=== PATIENT | female | born 1950 ===

== ENCOUNTER 2017-12-20 10:48 | Day surgery (SDC) | payer MEDICARE ==
[2017-12-17 11:33] VITALS: BMI 31.1
[2017-12-20] MEDS ORDERED: Lidocaine Hydrochloride 10 ML INJ ONE (12:03)
[2017-12-20] MEDS ORDERED: HEPARIN-NS 5,000 UNITS/500 ML 5,000 UNIT/500 ML BAG IV ONE (12:03)
[2017-12-20] MEDS ORDERED: ceFAZolin IV 1 gm in Dextrose 1 GM/50 ML BAG IVPB ONE (12:34)
[2017-12-20] MEDS ORDERED: Propofol 10 mg/ml Inj (20 ML) ONE (12:41)
[2017-12-20] MEDS ORDERED: ePHEDrine 50 mg/ml Inj ONE (13:16)
[2017-12-20] MEDS ORDERED: HYDROmorphone 0.5 mg/0.5 ml ISec IVP PRN (13:32)
--- NOTE | 2017-12-20 13:42 | PCM.SURG1 ---
Surgeon's Initial Post Op Note - Surgeon's Notes Surgeon: Gianluca Riojas [employer]ate Shop Attendant: none Type of Anesthesia: General LMA Anesthesia Administered By: ALEJANDRINA Mandujano Pre-Operative Diagnosis: breast cancer Operative Findings: 8F Powerport inserted via L subclavian vein Post-Operative Diagnosis: breast cancer Operation Performed: L subclavian portacath insertion Specimen/Specimens Removed: none Estimated Blood Loss: EBL {In ML}: 10 Blood Products Given: N/A Drains Used: No Drains Post-Op Condition: Good Date of Surgery/Procedure: 12/20/17 Time of Surgery/Procedure: 13:41
--- NOTE | 2017-12-20 14:02 | RAD ---
HISTORY: portacath COMPARISON: 12/17/2017. FINDINGS: The left-sided Port-A-Cath terminates in the right atrium. LUNGS: The lungs are clear. PLEURA: No significant pleural effusion identified, no pneumothorax apparent. CARDIOVASCULAR: There is mild cardiomegaly and prominent central vasculature. OSSEOUS STRUCTURES: No significant abnormalities. VISUALIZED UPPER ABDOMEN: Normal. OTHER FINDINGS: None. IMPRESSION: Left Port-A-Cath terminates in the right atrium. No acute findings.
--- NOTE | 2017-12-20 14:40 | RAD ---
PROCEDURE: Intraoperative Fluoroscopy. HISTORY: BREAST CA FINDINGS: Fluoroscopic assistance was provided for Port-A-Cath placement. Please refer to the operative report from DEJA Dorman. Total fluoroscopic time (continuous mode) utilized during the procedure (seconds) 26.2.
[2017-12-20 15:34] VITALS: BP 117/55; PULSE 63; RESP 20; TEMP 97.8; O2SAT 97
--- NOTE | 2017-12-23 07:57 | OP ---
PROCEDURE DATE: 12/20/2017 SURGEON: Leonel Riojas MD. ANESTHESIA: General LMA. MIXER WHIPPED TOPPING: Delbert Antunze CRNA. PREOPERATIVE DIAGNOSIS: Breast cancer. POSTOPERATIVE DIAGNOSIS: Breast cancer. PROCEDURE: Left subclavian Port-A-Cath insertion. DESCRIPTION OF OPERATION: With the patient in the supine position under adequate general anesthesia, the left upper chest and lower neck were prepped and draped in usual sterile manner. Lidocaine 1% was infiltrated and a subclavian vein puncture was performed. A guidewire was passed. The position was checked with C-arm, and it was noted to pass smoothly into the superior vena cava and right atrium. The skin overlying the upper left breast was infiltrated with 1% lidocaine and a subcutaneous pocket was created. The size was tested with the port, and hemostasis was achieved. The catheter was tunneled from the insertion. The vein dilator and introducer were then passed over the guidewire and positioned in the superior vena cava. The guidewire and dilator were removed, and the catheter was passed via the introducer and positioned in the lower portion of the superior vena cava. The catheter was trimmed at 25 cm at the pocket site, aspirated for blood return, and irrigated with heparinized saline. The catheter was then fixed to the port which had also been soaked with heparinized saline and fixed with the appropriate device. The port was placed in the previously created pocket and sutured on the deep aspect with a 3-0 Prolene suture. The port was again aspirated for blood return and irrigated with heparinized saline, and the pocket was closed with 2 interrupted sutures of 3-0 Vicryl and running subcuticular suture of 4-0 Monocryl and Steri-Strips. The dry sterile dressings were applied and the entire catheter system was again visualized with the C-arm to note that everything was in good position with no kinking. The patient tolerated the procedure well and transferred to recovery room in stable condition. Estimated blood loss for the procedure was 10 mL. Leonel Riojas MD
== END 2017-12-20 15:15 | disposition home or self-care (01) ==
LOC: C.SDS 10:48
PROVIDERS: ATTEND Specialist
DX: C50.011 Malignant neoplasm of nipple and areola, right female breast (principal); C50.919 Malignant neoplasm of unspecified site of unspecified female breast; Z45.2 Encounter for adjustment and management of vascular access device
CPT/HCPCS: 36561; 71045; J0690; J1644; J2001; J2405; J2704; J3010

== ENCOUNTER 2018-01-14 15:47 | Inpatient (IN) | payer MEDICARE ==
[2018-01-14 15:47] VITALS: BMI 31.1
[2018-01-14] MEDS ORDERED: Piperacillin/Tazobact 3.375 gm 100 ML IV STA (17:23)
[2018-01-14] MEDS ORDERED: Vancomycin 1 GM 1 GM/250 ML BAG IV STA (17:23)
--- NOTE | 2018-01-14 17:24 | C.PDOC ---
History Of Present Illness 67 yo female with PMHx of HTN, hyperlipidemia, depression, stage III breast cancer, currently on chemotherapy with Dr. Terrazas, sent to ER by Dr. Terrazas for evaluation of intermittent fever x 1 week. Patient reports she had a port placed by Dr. Riojas (12/20/17) and today when the port was accessed she felt immediate chills. Patient denies cough, rhinorrhea, sore throat, body changes, vomiting, diarrhea, dysuria/hematuria, abdominal pain. Time Seen by Provider: 01/14/18 17:03 Chief Complaint (Nursing): Fever History Per: Patient History/Exam Limitations: no limitations Onset/Duration Of Symptoms: Intermittent Episodes Additional History Per: Patient Past Medical History Reviewed: Historical Data, Nursing Documentation, Vital Signs Vital Signs: Last Vital Signs Temp 97.7 F 01/15/18 15:05 Pulse 72 01/15/18 15:05 Resp 20 01/15/18 15:05 BP 125/69 01/15/18 15:05 Pulse Ox 97 01/15/18 17:59 - Medical History PMH: Depression, Gall Bladder Disease, HTN, Hypercholesterolemia Denies: Chronic Kidney Disease Surgical History: Cholecystectomy, Endoscopy Family History: States: No Known Family Hx - Social History Hx Tobacco Use: No Hx Alcohol Use: Yes Hx Substance Use: No - Immunization History Hx Tetanus Toxoid Vaccination: No Hx Influenza Vaccination: No Hx Pneumococcal Vaccination: No Review Of Systems Constitutional: Positive for: Fever, Chills Cardiovascular: Negative for: Chest Pain Respiratory: Negative for: Shortness of Breath Gastrointestinal: Negative for: Abdominal Pain, Diarrhea Genitourinary: Negative for: Dysuria Physical Exam - Physical Exam Appears: Non-toxic, No Acute Distress Skin: Normal Color, Warm, Dry Head: Atraumatic, Normacephalic Eye(s): bilateral: Normal Inspection Oral Mucosa: Moist Neck: Normal ROM, Supple Chest: Symmetrical, Other (port noted to left upper chest; no surrounding erythema, or purulent discharge noted.) Cardiovascular: Rhythm Regular Respiratory: Normal Breath Sounds Gastrointestinal/Abdominal: Normal Exam, Soft, No Tenderness Back: Normal Inspection Extremity: Normal ROM, No Pedal Edema Neurological/Psych: Oriented x3 ED Course And Treatment - Laboratory Results Result Diagrams: 01/15/18 06:47 01/15/18 06:47 ECG: Interpreted By Me, Viewed By Me (NSR 96 bpm, normal axis, no acute ST/T wave changes) O2 Sat by Pulse Oximetry: 97 (RA) Pulse Ox Interpretation: Normal - Radiology CXR: Interpreted by Me, Viewed By Me CXR Interpretation: Yes: Cardiomegaly. No: Infiltrates Progress Note: Blood work, CXR, UA ordered and reviewed. UA and CXR negative- Patient's symptoms concerning for possible bacteremia (in light of recent Port insertion, and symptoms when Port was accessed). Broad spectrum antibiotics ordered - IV Vancomycin and IV Zosyn. - Physician Consult Information Physician Contacted: Krysten Knutson Outcome Of Conversation: Discussed patient with hospitalist, agrees with admission for fever/chills, leukocytosis, stage III breast CA, bacteremia suspected. Disposition - Disposition Disposition: HOSPITALIZED Disposition Time: 18:33 Condition: STABLE - Clinical Impression Clinical Impression: Bacteremia, Breast cancer, stage 3, Chills, Fever, Leukocytosis - Scribe Statement The provider has reviewed the documentation as recorded by the Filomena Stewart Provider Attestation: All medical record entries made by the Filomena were at my direction and personally dictated by me. I have reviewed the chart and agree that the record accurately reflects my personal performance of the history, physical exam, medical decision making, and the department course for this patient. I have also personally directed, reviewed, and agree with the discharge instructions and disposition. Decision To Admit - Pt Status Changed To: Hospital Disposition Of: Inpatient - Admit Certification Admit to Inpatient:: After my assessment, the patient will require hospitalization for at least two midnights. This is because of the severity of symptoms shown, intensity of services needed, and/or the medical risk in this patient being treated as an outpatient. - InPatient: Physician Admission Certification:: see notes - . Bed Request Type: Regular Admitting Physician: Krysten Knutson Patient Diagnosis: Fever, Chills, Leukocytosis, Bacteremia, Breast cancer, stage 3
[2018-01-14 17:58] LABS: SQUAMOUS EPITHIAL < 1 /hpf (0-5); URINE BILIRUBIN NEGATIVE (NEGATIVE); URINE BLOOD NEGATIVE (NEGATIVE); URINE CLARITY Clear (Clear); URINE COLOR Yellow (YELLOW); URINE GLUCOSE (UA) NORMAL (Normal); URINE LEUKOCYTE ESTERASE NEG Leu/uL (Negative); URINE PROTEIN NEGATIVE (NEGATIVE); URINE UROBILINOGEN NORMAL mg/dL (0.2-1.0)
[2018-01-14 17:59] LABS: VENOUS BLOOD GAS BASE EXCESS -2.1 mmol/L (0.0-2.0); VENOUS BLOOD GAS PCO2 30 mmHg (40-60); VENOUS BLOOD GAS PO2 52 mm/Hg (30-55); VENOUS BLOOD PH 7.45 (7.32-7.43)
[2018-01-14 18:02] LABS: BASO # 0.1 K/uL (0.0-0.2); BASO % 0.4 % (0.0-2.0); LYMPH # 0.6 K/uL (1.0-4.3); LYMPH % 2.3 % (20.0-40.0); MEAN CELL VOLUME 90.4 fL (81.0-99.0); MEAN CORPUSCULAR HEMOGLOBIN 30.6 pg (27.0-31.0); MEAN CORPUSCULAR HGB CONC 33.8 g/dL (33.0-37.0); MEAN PLATELET VOLUME 7.2 fL (7.2-11.7); MONO # 0.7 K/uL (0.0-0.8); MONO % 2.6 % (0.0-10.0); NEUT # 24.2 K/uL (1.8-7.0); NEUT % 94.7 % (50.0-75.0); PLATELET COUNT 385 K/uL (130-400); RBC 3.57 Mil/uL (3.80-5.20); RED CELL DISTRIBUTION WIDTH 13.4 % (11.5-14.5)
[2018-01-14] MEDS ORDERED: Vancomycin 1 gm/NS 200 ml 1 GM/200 ML BAG IVPB STA (18:02)
[2018-01-14 18:03] LABS: HEMOGLOBIN 10.9 g/dL (11.0-16.0); WHITE BLOOD COUNT 25.6 K/uL (4.8-10.8)
[2018-01-14] MEDS ORDERED: Piperacillin/Tazobact 3.375 gm 100 ML IVPB ONE (18:04)
[2018-01-14 18:23] LABS: ALB/GLOB RATIO 1.2 (1.0-2.1); ALBUMIN 4.2 g/dL (3.5-5.0); ALT/SGPT 70 U/L (9-52); AST/SGOT 31 U/L (14-36); BLOOD UREA NITROGEN 13 mg/dL (7-17); CALCIUM 9.8 mg/dl (8.6-10.4); GFR AFRICAN-AMERICAN > 60; GFR NON-AFRICAN AMERICAN > 60
[2018-01-14 18:34] LABS: BANDS 2 % (0-2); LYMPHOCYTE 2 % (20-40); MONOCYTE 3 % (0-10); NEUTROPHIL 93 % (50-75); PLATELET ESTIMATE NORMAL (NORMAL); TOTAL CELLS COUNTED 100
--- NOTE | 2018-01-14 18:56 | CP.PCM.PN ---
Subjective - Date & Time of Evaluation Date of Evaluation: 01/14/18 Time of Evaluation: 18:50 - Subjective Subjective: I spoke briefly with Dr. Terrazas on the phone. Patient recently diagnosed with breast cancer, established care in the office about one month ago. Patient has one dose of chemotherapeutic, anthracycline. Patient had a recentl port placement about [address] Riojas. Patient noted in the office, has fever, chills, while accessing the port noted rigors about 30 mins. Port was placed about 2 weeks ago. Concern for possible sepsis. Port accessed for either Decadron or Zofran. Patient did not receive Granix. Concerned for sepsis. Heme- onc recommended for patient's surgeon, Dr Riojas, ID: Dr Hernandes, and possible cardiology consult given abnormal echocardiogram. Patient was ordered for echocardiogram since she was anthracycline chemotherapetic; noted for possible pericardial effusion. Will endorse patient to night team. Objective - Vital Signs/Intake and Output Vital Signs (last 24 hours): Temp Pulse Resp BP Pulse Ox 98.4 F 107 H 20 119/71 97 01/14/18 16:01 01/14/18 16:01 01/14/18 16:01 01/14/18 16:01 01/14/18 18:42 - Medications Medications: Current Medications Vancomycin/Sodium Chloride (Vancomycin 1 Gm/Ns 200 Ml) 1 gm in 200 mls @ 133 mls/hr IVPB STAT STA PRN Reason: Protocol Stop: 01/14/18 19:32 Last Admin: 01/14/18 18:33 Dose: 133 mls/hr - Labs Labs: 01/14/18 17:52 01/14/18 17:52
--- NOTE | 2018-01-14 20:23 | CP.PCM.CON ---
History of Present Illness - History of Present Illness History of Present Illness: INFECTIOUS DISEASE CONSULT. HPI; 67-year-old female with history of stage III breast cancer recently diagnosed and currently on chemotherapy under Dr. Rangel. Patient has been experiencing intermittent fevers for about a week. Patient is reports she had a Port-A-Cath placed by Dr. Riojas on 12/20/17 and today when she went to get her second dose of chemotherapy, upon access of port she felt immediate chills and rigors. Also she spiked a fever of 103. Patient also complains of intermittent pain at port - catheter site but denies any drainage. Patient denies any chest pain, cough, rhinorrhea, sore throat, nausea or vomiting. She denies any diarrhea or dysuria. Patient denies any headache or any seizure disorder. Patient does complain of some myalgias and pain bilateral lower extremities.Patient denies any shortness of breath or hemoptysis. In ER patient was found to have a WBC count of 25.6. Infectious disease consult requested by PMD for evaluation of probable sepsis and fever. REPORTED PATIENT IS ON ANTHRACYCLINE CHEMOTHERAPY. PMH: Depression, Gall Bladder Disease, HTN, Hypercholesterolemia Denies: Chronic Kidney Disease Surgical History: Cholecystectomy, Endoscopy Family History: States: No Known Family Hx - Social History Hx Tobacco Use: No Hx Alcohol Use: Yes Hx Substance Use: No - Immunization History Hx Tetanus Toxoid Vaccination: No Hx Influenza Vaccination: No Hx Pneumococcal Vaccination: No ALLERGY; NKA. Review of Systems - Constitutional Constitutional: Chills, Fever - EENT Eyes: absent: Change in Vision, Floaters (SHEiNDIA WITHIN) Nose/Mouth/Throat: absent: Dysphagia, Mouth Lesions, Mouth Pain - Breasts Breasts: As Per HPI. absent: Nipple Discharge, Skin Changes, Swelling - Cardiovascular Cardiovascular: absent: Chest Pain, Pedal Edema - Respiratory Respiratory: absent: Cough, Dyspnea, Hemoptysis, Chest Congestion, Pain with Coughing - Gastrointestinal Gastrointestinal: absent: Abdominal Pain, Loose Stools, Nausea, Vomiting - Genitourinary Genitourinary: absent: Dysuria, Hematuria, Freq UTI - Neurological Neurological: absent: Focal Weakness, Headaches - Hematologic/Lymphatic Hematologic: As Per HPI. absent: Easy Bleeding, Easy Bruising, Lymphadenopathy Past Patient History - Infectious Disease Hx of Infectious Diseases: None - Past Medical History & Family History Past Medical History?: Yes - Past Social History Smoking Status: Never Smoked - CARDIAC Hx Hypercholesterolemia: Yes Hx Hypertension: Yes - PULMONARY Hx Respiratory Disorders: No - NEUROLOGICAL Hx Neurological Disorder: No - HEENT Hx HEENT Problems: No - RENAL Hx Chronic Kidney Disease: No - ENDOCRINE/METABOLIC Hx Endocrine Disorders: No - HEMATOLOGICAL/ONCOLOGICAL Hx Blood Disorders: Yes Hx Cancer: Yes (RIGHT BREAST-RADIATION DONE-NO CHEMO) - INTEGUMENTARY Hx Dermatological Problems: No - MUSCULOSKELETAL/RHEUMATOLOGICAL Hx Musculoskeletal Disorders: No - GASTROINTESTINAL Hx Gall Bladder Disease: Yes - GENITOURINARY/GYNECOLOGICAL Hx Genitourinary Disorders: Yes Other/Comment: HX: FIBROID UTERUS - PSYCHIATRIC Hx Depression: Yes Hx Substance Use: No - SURGICAL HISTORY Hx Cholecystectomy: Yes - ANESTHESIA Hx Anesthesia: Yes Hx Anesthesia Reactions: No Hx Malignant Hyperthermia: No Meds Allergies/Adverse Reactions: Allergies Allergy/AdvReac Type Severity Reaction Status Date / Time No Known Allergies Allergy Verified 01/14/18 16:05 Physical Exam - Constitutional Appears: No Acute Distress - Head Exam Head Exam: NORMAL INSPECTION - Eye Exam Eye Exam: EOMI, PERRL - ENT Exam ENT Exam: Mucous Membranes Moist, Normal Oropharynx - Neck Exam Neck exam: Positive for: Normal Inspection - Respiratory Exam Respiratory Exam: Clear to Auscultation Bilateral - Cardiovascular Exam Cardiovascular Exam: Tachycardia, REGULAR RHYTHM, +S1, +S2 - GI/Abdominal Exam GI & Abdominal Exam: Normal Bowel Sounds, Soft. absent: Organomegaly - Extremities Exam Extremities exam: Positive for: tenderness (B/L CALF ,-HOMANS), pedal pulses present. Negative for: calf tenderness, pedal edema - Neurological Exam Neurological exam: Alert, CN II-XII Intact, Oriented x3, Reflexes Normal - Psychiatric Exam Psychiatric exam: Normal Mood - Skin Skin Exam: Normal Color, Warm Results - Vital Signs Recent Vital Signs: Last Vital Signs Temp 98.4 F 01/14/18 19:32 Pulse 105 H 01/14/18 19:32 Resp 20 01/14/18 16:01 BP 123/70 01/14/18 19:32 Pulse Ox 95 01/14/18 19:32 - Labs Result Diagrams: 01/14/18 17:52 01/14/18 17:52 Labs: Laboratory Results - last 24 hr 01/14/18 01/14/18 01/14/18 17:52 17:52 17:52 WBC 25.6 H D RBC 3.57 L Hgb 10.9 L D Hct 32.2 L MCV 90.4 MCH 30.6 MCHC 33.8 RDW 13.4 Plt Count 385 MPV 7.2 Neut % (Auto) 94.7 H Lymph % (Auto) 2.3 L Harney % (Auto) 2.6 Eos % (Auto) 0.0 Baso % (Auto) 0.4 Neut # (Auto) 24.2 H Lymph # (Auto) 0.6 L Harney # (Auto) 0.7 Eos # (Auto) 0.0 Baso # (Auto) 0.1 Neutrophils % (Manual) 93 H Band Neutrophils % 2 Lymphocytes % (Manual) 2 L Monocytes % (Manual) 3 Platelet Estimate Normal RBC Morphology Normal pO2 VBG pH VBG pCO2 VBG HCO3 VBG Total CO2 VBG O2 Sat (Calc) VBG Base Excess VBG Potassium Glucose Lactate Sodium 139 Potassium 4.4 Chloride 97 L Carbon Dioxide 27 Anion Gap 19 BUN 13 Creatinine 0.7 Est GFR ( Amer) > 60 Est GFR (Non-Af Amer) > 60 Random Glucose 236 H Calcium 9.8 Total Bilirubin 0.3 AST 31 ALT 70 H Alkaline Phosphatase 102 Total Protein 7.7 Albumin 4.2 Globulin 3.5 Albumin/Globulin Ratio 1.2 Venous Blood Potassium Urine Color Yellow Urine Clarity Clear Urine pH 5.0 Ur Specific [place] 1.011 Urine Protein Negative Urine Glucose (UA) Normal Urine Ketones Negative Urine Blood Negative Urine Nitrate Negative Urine Bilirubin Negative Urine Urobilinogen Normal Ur Leukocyte Esterase Neg Urine WBC (Auto) < 1 Ur Squamous Epith Cells < 1 01/14/18 17:56 WBC RBC Hgb Hct MCV MCH MCHC RDW Plt Count MPV Neut % (Auto) Lymph % (Auto) Har[place] % (Auto) Eos % (Auto) Baso % (Auto) Neut # (Auto) Lymph # (Auto) Harney # (Auto) Eos # (Auto) Baso # (Auto) Neutrophils % (Manual) Band Neutrophils % Lymphocytes % (Manual) Monocytes % (Manual) Platelet Estimate RBC Morphology pO2 52 VBG pH 7.45 H VBG pCO2 30 L VBG HCO3 23.0 VBG Total CO2 21.8 L VBG O2 Sat (Calc) 92.5 H VBG Base Excess -2.1 L VBG Potassium 3.1 L Glucose 188 H Lactate 1.7 Sodium 141.0 Potassium Chloride 110.0 H Carbon Dioxide Anion Gap BUN Creatinine Est GFR ( Amer) Est GFR (Non-Af Amer) Random Glucose Calcium Total Bilirubin AST ALT Alkaline Phosphatase Total Protein Albumin Globulin Albumin/Globulin Ratio Venous Blood Potassium 3.1 L Urine Color Urine Clarity Urine pH Ur Specific [place] Urine Protein Urine Glucose (UA) Urine Ketones Urine Blood Urine Nitrate Urine Bilirubin Urine Urobilinogen Ur Leukocyte Esterase Urine WBC (Auto) Ur Squamous Epith Cells - Imaging and Cardiology Chest x-ray Status: Pending Assessment & Plan (1) Sepsis Assessment and Plan: SOURCE OF FEVER NOT CLEAR R/O CRBSI R/O SEPTICEMIA R/O VIRAL SYNDROME R/O DRUG FEVER ( ? CHEMO-INDUCED FEVER ) PANCULTURES ESR CRP. PROCALCITONIN. D DIMER. DUPLEX VENOUS B/L LE R/O DVT WOUND CULTURE LEFT pORT-a-cATH SITE. CONTINUE iv VANCOMYCIN 1 G EVERY 12 HOURLY 01/14/18. CONTINUE iv zOSYN 3.375 EVERY 8 HOURLY. 01/14/18 2-d ECHO R/O PERICARDIAL EFFUSION MRSA SCREEN. WILL F/U WITH YOU . (2) Leukocytosis (leucocytosis) Assessment and Plan: ON IV ABX . F/U CBCW DIFF IN AM Status: Acute (3) Carcinoma of breast, stage 3 Assessment and Plan: ONCOLOGY ON BOARD Status: Acute (4) Hypertension Status: Acute
--- NOTE | 2018-01-14 21:40 | CP.PCM.HP ---
<Meryl Hernandes - Last Filed: 01/14/18 22:37> Meds Allergies/Adverse Reactions: Allergies Allergy/AdvReac Type Severity Reaction Status Date / Time No Known Allergies Allergy Verified 01/14/18 16:05 Results - Vital Signs Recent Vital Signs: Last Vital Signs Temp 98.5 F 01/14/18 22:26 Pulse 103 H 01/14/18 22:26 Resp 20 01/14/18 22:26 BP 135/70 01/14/18 22:26 Pulse Ox 96 01/14/18 22:26 - Labs Result Diagrams: 01/14/18 17:52 01/14/18 17:52 Labs: Laboratory Results - last 24 hr 01/14/18 01/14/18 01/14/18 17:52 17:52 17:52 WBC 25.6 H D RBC 3.57 L Hgb 10.9 L D Hct 32.2 L MCV 90.4 MCH 30.6 MCHC 33.8 RDW 13.4 Plt Count 385 MPV 7.2 Neut % (Auto) 94.7 H Lymph % (Auto) 2.3 L [place] % (Auto) 2.6 Eos % (Auto) 0.0 Baso % (Auto) 0.4 Neut # (Auto) 24.2 H Lymph # (Auto) 0.6 L [place] # (Auto) 0.7 Eos # (Auto) 0.0 Baso # (Auto) 0.1 Neutrophils % (Manual) 93 H Band Neutrophils % 2 Lymphocytes % (Manual) 2 L Monocytes % (Manual) 3 Platelet Estimate Normal RBC Morphology Normal pO2 VBG pH VBG pCO2 VBG HCO3 VBG Total CO2 VBG O2 Sat (Calc) VBG Base Excess VBG Potassium Glucose Lactate Sodium 139 Potassium 4.4 Chloride 97 L Carbon Dioxide 27 Anion Gap 19 BUN 13 Creatinine 0.7 Est GFR ( Amer) > 60 Est GFR (Non-Af Amer) > 60 Random Glucose 236 H Calcium 9.8 Total Bilirubin 0.3 AST 31 ALT 70 H Alkaline Phosphatase 102 Total Protein 7.7 Albumin 4.2 Globulin 3.5 Albumin/Globulin Ratio 1.2 Procalcitonin Venous Blood Potassium Urine Color Yellow Urine Clarity Clear Urine pH 5.0 Ur Specific Steele 1.011 Urine Protein Negative Urine Glucose (UA) Normal Urine Ketones Negative Urine Blood Negative Urine Nitrate Negative Urine Bilirubin Negative Urine Urobilinogen Normal Ur Leukocyte Esterase Neg Urine WBC (Auto) < 1 Ur Squamous Epith Cells < 1 01/14/18 01/14/18 17:56 20:58 WBC RBC Hgb Hct MCV MCH MCHC RDW Plt Count MPV Neut % (Auto) Lymph % (Auto) [place] % (Auto) Eos % (Auto) Baso % (Auto) Neut # (Auto) Lymph # (Auto) [place] # (Auto) Eos # (Auto) Baso # (Auto) Neutrophils % (Manual) Band Neutrophils % Lymphocytes % (Manual) Monocytes % (Manual) Platelet Estimate RBC Morphology pO2 52 VBG pH 7.45 H VBG pCO2 30 L VBG HCO3 23.0 VBG Total CO2 21.8 L VBG O2 Sat (Calc) 92.5 H VBG Base Excess -2.1 L VBG Potassium 3.1 L Glucose 188 H Lactate 1.7 Sodium 141.0 Potassium Chloride 110.0 H Carbon Dioxide Anion Gap BUN Creatinine Est GFR ( Amer) Est GFR (Non-Af Amer) Random Glucose Calcium Total Bilirubin AST ALT Alkaline Phosphatase Total Protein Albumin Globulin Albumin/Globulin Ratio Procalcitonin 17.13 H Venous Blood Potassium 3.1 L Urine Color Urine Clarity Urine pH Ur Specific Steele Urine Protein Urine Glucose (UA) Urine Ketones Urine Blood Urine Nitrate Urine Bilirubin Urine Urobilinogen Ur Leukocyte Esterase Urine WBC (Auto) Ur Squamous Epith Cells <HoangMirtanikolai Johnson - Last Filed: 01/15/18 01:39> History of Present Illness - History of Present Illness History of Present Illness: CC: Rigor HPI: (History was obtained from patient and her daughter) Patient is a 67 year old female with history of 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 There was no loss of consciousness during this episode, but she was uncontrollably shaking. Patient had a L subclavian portacath insertion on 12/16/17 and started chemotherapy on 12/26; in the last week and a half the patient has been having intermittent fevers (subsiding with Tylenol). Previous Tmax of 103.3, but today's Tmax is 106. Patient admits to having a sick contact with her friend who also has cancer and has an infection, possibly bacteremia. During the encounter, patient admits to chest pain that worsens with inspiration , chills, fatigue, ringing in the ear, intermittent headache, taste in her mouth /altered gustatory sensation that has reduced her appetite, looser/more frequent stools ( with increase fiber and water intake), 3 pounds weight loss in the last 3 months, decrease activities. Patient denies palpitations, headache , shortness of breath, abdominal pain, nausea/vomiting, hematemesis, hematochezia, melena, leg swelling, bruising, bleeding and any travel since coming to the in October. In the last week, soon after a bowel movement, patient had an episode of syncope that was witnessed by family members; she did not hit her head or back. Code Status: full code and Daughter is proxy PMD: Hemanth Aguilera Heme/Onco: Dr. Terrazas PMHx: Stage 4 breast cancer, hypertension, depression, salivary gland (parotid? 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 Lives with daughter. Denies current or former use of tobacco, ETOH and illicit drugs Present on Admission - Present on Admission Any Indicators Present on Admission: No Review of Systems - Constitutional Constitutional: Chills, Fatigue, Fever, Headache, Weakness. absent: Weight Gain , Weight Loss - EENT Eyes: absent: Blurred Vision, Change in Vision Ears: Dizziness Nose/Mouth/Throat: absent: Nasal Congestion, Nasal Discharge - Cardiovascular Cardiovascular: Lightheadedness. absent: Chest Pain, Chest Pain at Rest, Diaphoresis, Dyspnea, Edema, Irregular Heart Rhythm, Pain Radiating to Arm/Neck/ Jaw, Orthopnea, Palpitations, Pedal Edema, Radiating Pain - Respiratory Respiratory: Pain on Inspiration. absent: Cough, Dyspnea, Hemoptysis, Dyspnea on Exertion, Wheezing, Chest Congestion - Gastrointestinal Gastrointestinal: absent: Abdominal Pain, Diarrhea, Nausea, Vomiting - Genitourinary Genitourinary: absent: Dysuria, Urinary Frequency, Urinary Hesitance, Urinary Urgency - Reproductive: Female Reproductive:Female: S/P Hysterectomy - Musculoskeletal Musculoskeletal: absent: Numbness, Stiffness - Neurological Neurological: Dizziness, Headaches, Weakness - Psychiatric Psychiatric: Change in Appetite - Endocrine Endocrine: Fatigue. absent: Palpitations Past Patient History - Infectious Disease Hx of Infectious Diseases: None - Past Medical History & Family History Past Medical History?: Yes - Past Social History Smoking Status: Never Smoked - CARDIAC Hx Hypercholesterolemia: Yes Hx Hypertension: Yes - PULMONARY Hx Respiratory Disorders: No - NEUROLOGICAL Hx Neurological Disorder: No - HEENT Hx HEENT Problems: No - RENAL Hx Chronic Kidney Disease: No - ENDOCRINE/METABOLIC Hx Endocrine Disorders: No - HEMATOLOGICAL/ONCOLOGICAL Hx Blood Disorders: Yes Hx Cancer: Yes (RIGHT BREAST-RADIATION DONE-NO CHEMO) - INTEGUMENTARY Hx Dermatological Problems: No - MUSCULOSKELETAL/RHEUMATOLOGICAL Hx Musculoskeletal Disorders: No - GASTROINTESTINAL Hx Gall Bladder Disease: Yes - GENITOURINARY/GYNECOLOGICAL Hx Genitourinary Disorders: Yes Other/Comment: HX: FIBROID UTERUS - PSYCHIATRIC Hx Depression: Yes Hx Substance Use: No - SURGICAL HISTORY Hx Cholecystectomy: Yes - ANESTHESIA Hx Anesthesia: Yes Hx Anesthesia Reactions: No Hx Malignant Hyperthermia: No Physical Exam - Constitutional Appears: No Acute Distress - Head Exam Head Exam: ATRAUMATIC, NORMAL INSPECTION - Eye Exam Eye Exam: EOMI, Normal appearance Pupil Exam: NORMAL ACCOMODATION - ENT Exam ENT Exam: Mucous Membranes Moist - Neck Exam Neck exam: Positive for: Full Rom - Respiratory Exam Respiratory Exam: Clear to Auscultation Bilateral, NORMAL BREATHING PATTERN. absent: Chest Wall Tenderness, Decreased Breath Sounds, Prolonged Expiratory Phase, Rhonchi, Wheezes, Respiratory Distress - Cardiovascular Exam Cardiovascular Exam: REGULAR RHYTHM, +S1, +S2 Additional comments: L subclavian portacath, No drainage from site - GI/Abdominal Exam GI & Abdominal Exam: Normal Bowel Sounds, Soft. absent: Diminished Bowel Sounds , Distended, Firm, Guarding, Hernia, Organomegaly, Rigid, Tenderness - Extremities Exam Extremities exam: Negative for: calf tenderness, pedal edema, tenderness - Back Exam Back exam: NORMAL INSPECTION. absent: CVA tenderness (L), CVA tenderness (R) - Neurological Exam Neurological exam: Alert, CN II-XII Intact, Oriented x3 - Psychiatric Exam Psychiatric exam: Normal Affect, Normal Mood Results - Vital Signs Recent Vital Signs: Last Vital Signs Temp 98.4 F 01/14/18 19:32 Pulse 105 H 01/14/18 19:32 Resp 20 01/14/18 16:01 BP 123/70 01/14/18 19:32 Pulse Ox 95 01/14/18 19:32 - Labs Result Diagrams: 01/14/18 17:52 01/14/18 17:52 Labs: Laboratory Results - last 24 hr 01/14/18 01/14/18 01/14/18 17:52 17:52 17:52 WBC 25.6 H D RBC 3.57 L Hgb 10.9 L D Hct 32.2 L MCV 90.4 MCH 30.6 MCHC 33.8 RDW 13.4 Plt Count 385 MPV 7.2 Neut % (Auto) 94.7 H Lymph % (Auto) 2.3 L [place] % (Auto) 2.6 Eos % (Auto) 0.0 Baso % (Auto) 0.4 Neut # (Auto) 24.2 H Lymph # (Auto) 0.6 L [place] # (Auto) 0.7 Eos # (Auto) 0.0 Baso # (Auto) 0.1 Neutrophils % (Manual) 93 H Band Neutrophils % 2 Lymphocytes % (Manual) 2 L Monocytes % (Manual) 3 Platelet Estimate Normal RBC Morphology Normal pO2 VBG pH VBG pCO2 VBG HCO3 VBG Total CO2 VBG O2 Sat (Calc) VBG Base Excess VBG Potassium Glucose Lactate Sodium 139 Potassium 4.4 Chloride 97 L Carbon Dioxide 27 Anion Gap 19 BUN 13 Creatinine 0.7 Est GFR ( Amer) > 60 Est GFR (Non-Af Amer) > 60 Random Glucose 236 H Calcium 9.8 Total Bilirubin 0.3 AST 31 ALT 70 H Alkaline Phosphatase 102 Total Protein 7.7 Albumin 4.2 Globulin 3.5 Albumin/Globulin Ratio 1.2 Venous Blood Potassium Urine Color Yellow Urine Clarity Clear Urine pH 5.0 Ur Specific [place] 1.011 Urine Protein Negative Urine Glucose (UA) Normal Urine Ketones Negative Urine Blood Negative Urine Nitrate Negative Urine Bilirubin Negative Urine Urobilinogen Normal Ur Leukocyte Esterase Neg Urine WBC (Auto) < 1 Ur Squamous Epith Cells < 1 01/14/18 17:56 WBC RBC Hgb Hct MCV MCH MCHC RDW Plt Count MPV Neut % (Auto) Lymph % (Auto) [place] % (Auto) Eos % (Auto) Baso % (Auto) Neut # (Auto) Lymph # (Auto) [place] # (Auto) Eos # (Auto) Baso # (Auto) Neutrophils % (Manual) Band Neutrophils % Lymphocytes % (Manual) Monocytes % (Manual) Platelet Estimate RBC Morphology pO2 52 VBG pH 7.45 H VBG pCO2 30 L VBG HCO3 23.0 VBG Total CO2 21.8 L VBG O2 Sat (Calc) 92.5 H VBG Base Excess -2.1 L VBG Potassium 3.1 L Glucose 188 H Lactate 1.7 Sodium 141.0 Potassium Chloride 110.0 H Carbon Dioxide Anion Gap BUN Creatinine Est GFR ( Amer) Est GFR (Non-Af Amer) Random Glucose Calcium Total Bilirubin AST ALT Alkaline Phosphatase Total Protein Albumin Globulin Albumin/Globulin Ratio Venous Blood Potassium 3.1 L Urine Color Urine Clarity Urine pH Ur Specific [place] Urine Protein Urine Glucose (UA) Urine Ketones Urine Blood Urine Nitrate Urine Bilirubin Urine Urobilinogen Ur Leukocyte Esterase Urine WBC (Auto) Ur Squamous Epith Cells Assessment & Plan (1) SIRS (systemic inflammatory response syndrome) Assessment and Plan: Consultation: -ID, Vitaliy Larios ---> Help appreciated * Management as per recommendation Labs/Vitals/Imaging: On admission: * Tmax: 107 * WBC: 25.6 * Procalcitonin: 17.13 * Lactate: 1.7 * F/u CRP, ESR, Blood culture, Urine culture and wound culture * F/u official Chest-Xray report Medications: * NS@100CC/HR * Zosyn 3.375gm IV Q8H * Vanco 1gm IV Q12H * Florastor 250mg PO BID * Motrin 400mg PO Q6H PRN for fever>100.4 Status: Acute (2) Invasive ductal carcinoma of right breast, stage 3 Assessment and Plan: Consultation: * Heme/Onco: Dr. 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 Currently chemotherapy ( Started 12/26/17) Status: Acute (3) Hypertension Assessment and Plan: Continue home medication: * Lisinopril-HCTZ 20-12.5 PO QD * Continue to monitor with vital signs Q4H Status: Acute (4) Depression Assessment and Plan: Continue home medication: * Escitalopram 20mg PO QD Status: Acute (5) Inspiratory pain Assessment and Plan: F/u D-Dimer F/U bilateral venous doppler Status: Acute (6) Prophylactic measure Assessment and Plan: GI: Pepcid 20mg PO QD DVT: Heparin 5,000 units SC Q8H, SCDs contraindicated due to complaints of leg pain, r/o DVT with venous doppler prior to initiating SCDs All plans and management discussed with Dr. Reyes Status: Acute <Gal Reyes - Last Filed: 01/16/18 05:56> Results - Vital Signs Recent Vital Signs: Last Vital Signs Temp 98 F 01/15/18 23:35 Pulse 67 01/15/18 23:35 Resp 20 01/15/18 23:35 BP 103/65 01/15/18 23:35 Pulse Ox 96 01/15/18 23:35 - Labs Result Diagrams: 01/15/18 06:47 01/15/18 06:47 Labs: Laboratory Results - last 24 hr 01/15/18 01/15/18 01/15/18 06:47 06:47 06:47 WBC 25.2 H RBC 3.33 L Hgb 10.1 L Hct 30.1 L MCV 90.5 MCH 30.5 MCHC 33.7 RDW 13.1 Plt Count 384 MPV 7.3 Neut % (Auto) 88.1 H Lymph % (Auto) 6.0 L [place] % (Auto) 5.8 Eos % (Auto) 0.0 Baso % (Auto) 0.1 Neut # (Auto) 22.2 H Lymph # (Auto) 1.5 [place] # (Auto) 1.5 H Eos # (Auto) 0.0 Baso # (Auto) 0.0 Neutrophils % (Manual) 88 H Band Neutrophils % 3 H Lymphocytes % (Manual) 5 L Reactive Lymphs % 1 H Monocytes % (Manual) 3 Toxic Granulation Present Platelet Estimate Normal Hypochromasia (manual) Slight Poikilocytosis (manual Slight Anisocytosis (manual) Slight ESR 63 H D-Dimer, Quantitative Sodium 142 Potassium 3.9 Chloride 104 Carbon Dioxide 29 Anion Gap 13 BUN 13 Creatinine 0.6 L Est GFR ( Amer) > 60 Est GFR (Non-Af Amer) > 60 Random Glucose 145 H Calcium 9.9 Phosphorus 3.7 Magnesium 2.2 Total Bilirubin 0.2 AST 31 ALT 61 H Alkaline Phosphatase 112 Total Creatine Kinase CK-MB (Mass) Troponin I C-Reactive Protein 152.90 H Total Protein 7.1 Albumin 3.9 Globulin 3.2 Albumin/Globulin Ratio 1.2 Procalcitonin 24.15 H 01/15/18 01/15/18 01/15/18 06:47 12:51 17:02 WBC RBC Hgb Hct MCV MCH MCHC RDW Plt Count MPV Neut % (Auto) Lymph % (Auto) [place] % (Auto) Eos % (Auto) Baso % (Auto) Neut # (Auto) Lymph # (Auto) [place] # (Auto) Eos # (Auto) Baso # (Auto) Neutrophils % (Manual) Band Neutrophils % Lymphocytes % (Manual) Reactive Lymphs % Monocytes % (Manual) Toxic Granulation Platelet Estimate Hypochromasia (manual) Poikilocytosis (manual Anisocytosis (manual) ESR D-Dimer, Quantitative 1522 H Sodium Potassium Chloride Carbon Dioxide Anion Gap BUN Creatinine Est GFR ( Amer) Est GFR (Non-Af Amer) Random Glucose Calcium Phosphorus Magnesium Total Bilirubin AST ALT Alkaline Phosphatase Total Creatine Kinase 72 85 CK-MB (Mass) 1.54 2.10 Troponin I < 0.0120 < 0.0120 C-Reactive Protein Total Protein Albumin Globulin Albumin/Globulin Ratio Procalcitonin 01/15/18 22:38 WBC RBC Hgb Hct MCV MCH MCHC RDW Plt Count MPV Neut % (Auto) Lymph % (Auto) [place] % (Auto) Eos % (Auto) Baso % (Auto) Neut # (Auto) Lymph # (Auto) [place] # (Auto) Eos # (Auto) Baso # (Auto) Neutrophils % (Manual) Band Neutrophils % Lymphocytes % (Manual) Reactive Lymphs % Monocytes % (Manual) Toxic Granulation Platelet Estimate Hypochromasia (manual) Poikilocytosis (manual Anisocytosis (manual) ESR D-Dimer, Quantitative Sodium Potassium Chloride Carbon Dioxide Anion Gap BUN Creatinine Est GFR ( Amer) Est GFR (Non-Af Amer) Random Glucose Calcium Phosphorus Magnesium Total Bilirubin AST ALT Alkaline Phosphatase Total Creatine Kinase 131 CK-MB (Mass) 2.95 Troponin I < 0.0120 C-Reactive Protein Total Protein Albumin Globulin Albumin/Globulin Ratio Procalcitonin Assessment & Plan - Date & Time Date: 01/16/18 (I have seen and examined the patient. I agree with the findings and plan of care as documented by Dr. Bolton. Patient with positive SIRS criteria. History of ongoing breast cancer. Consult to ID and heme/onc. [place] for now. Check blood cultures. Monitor for acute changes.) Time: 05:55 Attending/Attestation - Attestation I have personally seen and examined this patient.: Yes I have fully participated in the care of the patient.: Yes I have reviewed all pertinent clinical information: Yes
[2018-01-14] MEDS ORDERED: Piperacill/Tazo 3.375gm in Dex 3.375 GM/50 ML BAG IVPB SCH (22:00)
[2018-01-14] MEDS ORDERED: Vancomycin 1 gm/NS 200 ml 1 GM/200 ML BAG IVPB SCH (23:00)
[2018-01-14] MEDS: Sodium Chloride 0.9% 1,000 ML IV SCH (23:53)
[2018-01-15] MEDS: Piperacill/Tazo 3.375gm in Dex 3.375 GM/50 ML BAG IVPB SCH ×3 (02:04→17:50)
[2018-01-15] MEDS: Vancomycin 1 gm/NS 200 ml 1 GM/200 ML BAG IVPB SCH ×2 (05:38→17:51)
[2018-01-15 06:59] LABS: BASO % 0.1 % (0.0-2.0); HEMOGLOBIN 10.1 g/dL (11.0-16.0); LYMPH # 1.5 K/uL (1.0-4.3); MEAN CELL VOLUME 90.5 fL (81.0-99.0); MEAN CORPUSCULAR HEMOGLOBIN 30.5 pg (27.0-31.0); MEAN CORPUSCULAR HGB CONC 33.7 g/dL (33.0-37.0); MEAN PLATELET VOLUME 7.3 fL (7.2-11.7); MONO # 1.5 K/uL (0.0-0.8); MONO % 5.8 % (0.0-10.0); NEUT # 22.2 K/uL (1.8-7.0); NEUT % 88.1 % (50.0-75.0); PLATELET COUNT 384 K/uL (130-400); RBC 3.33 Mil/uL (3.80-5.20); RED CELL DISTRIBUTION WIDTH 13.1 % (11.5-14.5); WHITE BLOOD COUNT 25.2 K/uL (4.8-10.8)
--- NOTE | 2018-01-15 07:12 | CP.PCM.PN ---
<Bahman Gorman - Last Filed: 01/15/18 13:39> Subjective - Date & Time of Evaluation Date of Evaluation: 01/15/18 Time of Evaluation: 07:12 - Subjective Subjective: Medicine progress note for Dr Benedict: Pt examined and seen at bedside this morning. Pt complains of diffuse chest tightness with deep inspiration. Pt denies cough, fever, palpitations, n/v. Pt also complains of more frequent bowel movements than normal. She is now having bowel movements twice a day, she normally goes every other day. Pt also complains of pain in the 4 o'clock region surrounding the newly placed port-a- cath (12/16/2017). pt denies any swelling or erythema in the region. Objective - Vital Signs/Intake and Output Vital Signs (last 24 hours): Temp Pulse Resp BP Pulse Ox 98.0 F 82 20 118/67 95 01/14/18 23:40 01/15/18 03:59 01/14/18 23:40 01/14/18 23:40 01/14/18 23:40 - Medications Medications: Current Medications Escitalopram Oxalate (Lexapro) 20 mg PO DAILY [facility] Famotidine (Pepcid) 20 mg PO DAILY [facility] Heparin Sodium (Porcine) (Heparin) 5,000 units SC Q8 [facility] Last Admin: 01/15/18 06:05 Dose: 5,000 units Hydrochlorothiazide (Microzide) 12.5 mg PO DAILY [facility] Vancomycin/Sodium Chloride (Vancomycin 1 Gm/Ns 200 Ml) 1 gm in 200 mls @ 133.333 mls/hr IVPB Q12H [facility] PRN Reason: Protocol Stop: 01/20/18 06:01 Last Admin: 01/15/18 05:38 Dose: 133.333 mls/hr Sodium Chloride (Sodium Chloride 0.9%) 1,000 mls @ 100 mls/hr IV .Q10H [facility] Last Admin: 01/14/18 23:53 Dose: 100 mls/hr Piperacillin Sod/Tazobactam Sod (Zosyn 3.375 Gm Iv Premix) 3.375 gm in 50 mls @ 100 mls/hr IVPB Q8H [facility] PRN Reason: Protocol Last Admin: 01/15/18 02:04 Dose: 100 mls/hr Ibuprofen (Motrin Tab) 400 mg PO Q6H PRN PRN Reason: Fever >100.4 F Lisinopril (Zestril) 20 mg PO DAILY [facility] Rosuvastatin Calcium (Crestor) 10 mg PO HS [facility] Saccharomyces Boulardii (Florastor) 250 mg PO BID [facility]AYLA - Labs Labs: 01/15/18 06:47 01/14/18 17:52 - Constitutional Appears: Non-toxic, No Acute Distress - Head Exam Head Exam: ATRAUMATIC, NORMAL INSPECTION - Eye Exam Eye Exam: EOMI, Normal appearance. absent: Scleral icterus - ENT Exam ENT Exam: Mucous Membranes Moist - Respiratory Exam Respiratory Exam: Clear to Ausculation Bilateral, NORMAL BREATHING PATTERN. absent: Rales, Rhonchi, Wheezes, Respiratory Distress - Cardiovascular Exam Cardiovascular Exam: REGULAR RHYTHM, +S1, +S2. absent: Murmur Additional comments: Chest: L subclavian port-a-cath mildly tender but no drainage/erythema or signs of cellulitis - GI/Abdominal Exam GI & Abdominal Exam: Soft, Normal Bowel Sounds. absent: Distended, Guarding, Tenderness - Extremities Exam Extremities Exam: Normal Inspection. absent: Calf Tenderness, Joint Swelling, Pedal Edema - Back Exam Back Exam: NORMAL INSPECTION - Neurological Exam Neurological Exam: Alert, Awake, CN II-XII Intact, Oriented x3 Neuro motor strength exam: Left Upper Extremity: 5, Right Upper Extremity: 5, Left Lower Extremity: 5, Right Lower Extremity: 5 - Psychiatric Exam Psychiatric exam: Normal Affect, Normal Mood - Skin Skin Exam: Dry, Intact, Normal Color Assessment and Plan - Assessment and Plan (Free Text) Assessment: 67 yo Female with a PMH of R Invasive ductal ca, depression and HTN admitted on 01/14 for fevers and chill during medication infusion via port-a-cath at infusion center. Plan: SIRS (systemic inflammatory response syndrome) -On admission: tachycardic with elevated WBC - source of infection unknown -WBC 25.5 w/ Left shift (3 bands) -ESR 63 -ProCalcitonin 24.15 up from 17 on admission -CRP 152.9 -Lactate 1.7 on admission -CXR: 01/15- mild pulmonary vasc congestion limited study due to body habitus -f/u blood, urine, wound cultures UA 01/14 neg -ID, , Vitaliy Hernandes consulted help appreciated: r/o viral syndrome/drugfever/chemo induced fever -Sx Dr. Riojas consulted: help appreciated - in order to r/o infection of port ( recent placement on 12/20/17) -f/u CT chest,abd,pelvis - Medications: * NS@100CC/HR * Zosyn 3.375gm IV Q8H ( started 01/15) * Vanco 1gm IV Q12H (started 01/15 - trough f/u 01/17 20:00) * Florastor 250mg PO BID * Motrin 400mg PO Q6H PRN for fever>100.4 Chest Tightness D-Dimer: elevated 1522 f/u CT angio to r/o PE ANTIONE #1- neg, will trend x3 EKG -NSR with nonspecific t wave changes, will trend x3 Venous doppler neg for DVT Pericardial Effusion echo from 01/11: mild-mod pericardial effusion, EF 50% Dr. Galan cardiology consult help appreciated Invasive ductal carcinoma of right breast, stage 3 Dr Fox, Heme/Onc, consulted help appreciated : Pathology result (11/26/17): * Right invasive ductal carcinoma Grade 3 with right axilla lymph node Currently chemotherapy ( Started 12/26/17) -Left Port-a-cath placed 12/20/17 Hypertension controlled -lsinopril 20mg PO daily -HCTZ 12.5mg PO daily -low sodium diet Depression Escitalopram 20mg PO QD PPX GI: Pepcid 20mg PO QD DVT: Heparin 5,000 units SC Q8H, SCDs Heart Healthy Diet PT/OT code status: full code Barrie Gorman PGY1 <Anny Benedict V - Last Filed: 01/21/18 23:30> Objective - Vital Signs/Intake and Output Vital Signs (last 24 hours): Temp Pulse Resp BP Pulse Ox 98.7 F 90 20 108/62 95 01/21/18 15:05 01/21/18 16:00 01/21/18 15:05 01/21/18 15:05 01/21/18 15:05 - Medications Medications: Current Medications Escitalopram Oxalate (Lexapro) 20 mg PO DAILY [facility] Last Admin: 01/21/18 09:17 Dose: 20 mg Famotidine (Pepcid) 20 mg PO DAILY [facility] Last Admin: 01/21/18 09:17 Dose: 20 mg Heparin Sodium (Porcine) (Heparin) 5,000 units SC Q8 [facility] Stop: 01/22/18 23:59 Last Admin: 01/21/18 22:04 Dose: 5,000 units Hydrochlorothiazide (Microzide) 12.5 mg PO DAILY [facility] Last Admin: 01/21/18 09:17 Dose: Not Given Ibuprofen (Motrin Tab) 400 mg PO Q6H PRN PRN Reason: Pain, Mild (1-3) Lisinopril (Zestril) 20 mg PO DAILY [facility] Last Admin: 01/21/18 09:17 Dose: Not Given Rosuvastatin Calcium (Crestor) 10 mg PO HS [facility] Last Admin: 01/21/18 22:03 Dose: 10 mg Saccharomyces Boulardii (Florastor) 250 mg PO BID [facility] Last Admin: 01/21/18 17:31 Dose: 250 mg - Labs Labs: 01/21/18 08:27 01/21/18 08:27 PT 12.4 SECONDS (9.7-12.2) H 01/20/18 06:38 INR 1.1 01/20/18 06:38 APTT 32 SECONDS (21-34) 01/20/18 06:38 Attending/Attestation - Attestation I have personally seen and examined this patient.: Yes I have fully participated in the care of the patient.: Yes I have reviewed all pertinent clinical information, including history, physical exam and plan: Yes Notes (Text): This is late computer entry for 01/15/18. Patient seen, examined, and case discussed with medical van driver. patient reports chest pain while breathing in. Given breast cancer history, we will order Ct angio and venous doppler r/o dvt. Patient noting she is having more frequent bowel movements. We will order for CT abdomen/pelvis. We f/u general surgery, cardiology, infectious disease, and heme-oncology. (1) SIRS (systemic inflammatory response syndrome) Assessment and Plan: * Criteria: leukocytosis, tachycardia source unclear if its related to port of cath or note * Risk: breast cancer on chemo, immunocomprised * Infectious Disease (Dr. Hernandes) on board-->help appreciated * Antibiotics: * Zosyn d/c (active 01/14/18) * Vanco 1gm IV Q12H (started 01/15)--> trough f/u 01/17 20:00 * Florastor 250mg PO BID * Infectious Disease (Dr. Hernandes) on board-->help appreciated * 01/14/18 Blood culture: f/u * 01/14/18: Blood culture: f/u * 01/14/18: Wound culture: f/u * General surgery (Dr. Riojas) on the case-->to assess the port for possible infection. * Procalcitonin: 24.15 (01/15/18) * Imaging: * CT Abdomen/pelvis (01/15/18): no acute abdominal or pelvic abnormality. Mild hepatomegaly and fatty liver. Small subcentimeter lesion in the left hepatic lobe is is too small to characterize. Sigmoid diverticulsosi without CT evidence of acute diverticulitis * CT angio (01/15/18): no Ct evidence of acute pulmonary embolism. Scattered pulmonary nodules. the largest subpleural nodule in the right upper lobve measures 1.7cm. Possible metastatic, but cannot ruled out septic embolic/fungal infections Status: Acute (2) Invasive ductal carcinoma of right breast, stage 3 Assessment and Plan: * Heme-Oncologist (Dr. Terrazas) on board-->help appreciated * Pathology result (11/26/17): Right invasive ductal carcinoma Grade 3 with right axilla lymph node * Patient has had one chemotherapy session and witnessed chills when port was accessed at outpatient Status: Chronic (3) Hypertension Assessment and Plan: * HCTZ 12.5mg PO daily * Lisinopril 20mg PO daily * monitor vital signs Status: Chronic (4) Depression Assessment and Plan: * Lexapro 20mg PO daily Status: Chronic (5) Inspiratory pain Assessment and Plan: * D-dimer: elevated (given breast cancer hx) * CT angio (01/15/18): no Ct evidence of acute pulmonary embolism. Scattered pulmonary nodules. the largest subpleural nodule in the right upper lobve measures 1.7cm. Possible metastatic, but cannot ruled out septic embolic/fungal infections * Cardiac enzymes negative X3 * Venous doppler negative for DVT Status: Resolved (6) Abnormal echocardiogram Pericardial Effusion Assessment and Plan: * Risk factor: on chemotherapuetic (cardio side efects) * Cardiology (Dr. Galan) on the case-->help appreciated * Echocardiogram (01/11/18): left ventricle is normal size, mild concentric left ventricular hypertrophy. EF: 50-55%, left atrium is mildly dilated. mitral regurgitation is mild. elevated right atrial pressure. mild to moderater anterior/posterior percardial effusion * Recommend to repeat echo Status: Acute (7) Transaminitis Assessment and Plan: * possible acute phase reactant * Downtrending * CT Abdomen/pelvis (01/15/18): no acute abdominal or pelvic abnormality. Mild hepatomegaly and fatty liver. Small subcentimeter lesion in the left hepatic lobe is is too small to characterize. Sigmoid diverticulosis without CT evidence of acute diverticulitis Status: Acute (8) Lipid Disorder Assessment and Plan: * Crestor 10mg POqHS Status: Chronic (9) Prophylactic measure Assessment and Plan: * GI: Pepcid 20mg PO QDaily * heparin 5000 units subq8H * Florastor 250mg PO BID
--- NOTE | 2018-01-15 07:13 | CP.PCM.PN ---
Subjective - Date & Time of Evaluation Date of Evaluation: 01/15/18 Time of Evaluation: 07:13 Objective - Vital Signs/Intake and Output Vital Signs (last 24 hours): Temp Pulse Resp BP Pulse Ox 98.0 F 82 20 118/67 95 01/14/18 23:40 01/15/18 03:59 01/14/18 23:40 01/14/18 23:40 01/14/18 23:40 - Medications Medications: Current Medications Escitalopram Oxalate (Lexapro) 20 mg PO DAILY [facility] Famotidine (Pepcid) 20 mg PO DAILY [facility] Heparin Sodium (Porcine) (Heparin) 5,000 units SC Q8 [facility] Last Admin: 01/15/18 06:05 Dose: 5,000 units Hydrochlorothiazide (Microzide) 12.5 mg PO DAILY [facility] Vancomycin/Sodium Chloride (Vancomycin 1 Gm/Ns 200 Ml) 1 gm in 200 mls @ 133.333 mls/hr IVPB Q12H [facility] PRN Reason: Protocol Stop: 01/20/18 06:01 Last Admin: 01/15/18 05:38 Dose: 133.333 mls/hr Sodium Chloride (Sodium Chloride 0.9%) 1,000 mls @ 100 mls/hr IV .Q10H [facility] Last Admin: 01/14/18 23:53 Dose: 100 mls/hr Piperacillin Sod/Tazobactam Sod (Zosyn 3.375 Gm Iv Premix) 3.375 gm in 50 mls @ 100 mls/hr IVPB Q8H [facility]LA PRN Reason: Protocol Last Admin: 01/15/18 02:04 Dose: 100 mls/hr Ibuprofen (Motrin Tab) 400 mg PO Q6H PRN PRN Reason: Fever >100.4 F Lisinopril (Zestril) 20 mg PO DAILY [facility] Rosuvastatin Calcium (Crestor) 10 mg PO HS [facility] Saccharomyces Boulardii (Florastor) 250 mg PO BID SHAYLA - Labs Labs: 01/15/18 06:47 01/14/18 17:52
[2018-01-15 07:47] LABS: ALB/GLOB RATIO 1.2 (1.0-2.1); ALBUMIN 3.9 g/dL (3.5-5.0); ALT/SGPT 61 U/L (9-52); AST/SGOT 31 U/L (14-36); BLOOD UREA NITROGEN 13 mg/dL (7-17); CALCIUM 9.9 mg/dl (8.6-10.4); GFR AFRICAN-AMERICAN > 60; GFR NON-AFRICAN AMERICAN > 60
--- NOTE | 2018-01-15 07:52 | CP.PCM.CON ---
History of Present Illness - History of Present Illness History of Present Illness: cc: rigor Ms. Mata is a pleasant 67yoF H right invasive ductal carcinoma, hypertension, depression who comes to [facility] after experiencing chills and rigor yesterday at chemotherapy. Her left subclavian portacath was placed on 12/20/17, and she started chemotherapy on [place], 01/09/18. Her first session of chemo was uneventful. It was toward the end of her second chemotherapy session which she developed chills, fever, and rigor. She did not lose consciousness but was unable to control her body. She did not become incontinent, and has urinated and had BM since yesterday. She reports that her fever was as high as 106, but has been afebrile overnight. Admits that a friend at chemotherapy is sick. Denies chest pain, but admits a tightness in her chest impeding her from taking deep breaths. Admits to chills, tinnitus, change in taste, decreased appetite, loose BM, weight loss since starting chemo, decreased interest in activities. Denies SOB, palpitations, n/v, hematemesis, hematochezia, melena, extremity swelling, bruising, bleeding, erythema. Review of Systems - Constitutional Constitutional: Anorexia, Chills, Fatigue, Fever, Lethargy, Weight Loss. absent : Excessive Sweating, Headache - EENT Eyes: absent: Blurred Vision, Change in Vision, Diplopia, Discharge, Irritation Ears: Tinnitus. absent: Disequilibrium, Dizziness Nose/Mouth/Throat: absent: Nasal Congestion, Post Nasal Drip, Bleeding Gums, Dysphagia, Mouth Pain, Odynophagia - Breasts Breasts: absent: Change in Shape, Nipple Discharge, Skin Changes, Swelling - Cardiovascular Cardiovascular: absent: Chest Pain, Claudication, Irregular Heart Rhythm, Pain Radiating to Arm/Neck/Jaw, Lightheadedness, Palpitations - Respiratory Respiratory: absent: Cough, Hemoptysis, Wheezing, Pain with Coughing - Gastrointestinal Gastrointestinal: Change in Bowel Habits. absent: Abdominal Pain, Constipation , Diarrhea, Dyspepsia, Dysphagia, Hematochezia, Melena - Genitourinary Genitourinary: absent: Hematuria, Nocturia, Urinary Hesitance, Urinary Urgency - Musculoskeletal Musculoskeletal: absent: Arthralgias, Joint Swelling, Limited Range of Motion, Muscle Weakness, Numbness, Stiffness, Tingling - Integumentary Integumentary: absent: Dry Skin, Lesions, Skin Ulcer, Sores, Swelling, Wounds - Neurological Neurological: Weakness. absent: Behavioral Changes, Burning Sensations, Confusion, Numbness, Headaches, Loss of Vision, Syncope, Tingling, Tremor - Psychiatric Psychiatric: absent: Confusion, Memory Loss, Paranoia - Endocrine Endocrine: Cold Intolorance, Heat Intolorance. absent: Change in Body Appearance, Increase in Ring/Shoe/Hat Size - Hematologic/Lymphatic Hematologic: absent: Easy Bleeding, Easy Bruising Past Patient History - Infectious Disease Hx of Infectious Diseases: None - Past Medical History & Family History Past Medical History?: Yes - Past Social History Smoking Status: Never Smoked Alcohol: None Drugs: Denies - CARDIAC Hx Hypercholesterolemia: Yes Hx Hypertension: Yes - PULMONARY Hx Respiratory Disorders: No - NEUROLOGICAL Hx Neurological Disorder: No - HEENT Hx HEENT Problems: No - RENAL Hx Chronic Kidney Disease: No - ENDOCRINE/METABOLIC Hx Endocrine Disorders: No - HEMATOLOGICAL/ONCOLOGICAL Hx Blood Disorders: Yes Hx Cancer: Yes (RIGHT BREAST-RADIATION DONE-NO CHEMO) - INTEGUMENTARY Hx Dermatological Problems: No - MUSCULOSKELETAL/RHEUMATOLOGICAL Hx Musculoskeletal Disorders: No - GASTROINTESTINAL Hx Gall Bladder Disease: Yes - GENITOURINARY/GYNECOLOGICAL Hx Genitourinary Disorders: Yes Other/Comment: HX: FIBROID UTERUS - PSYCHIATRIC Hx Depression: Yes Hx Substance Use: No - SURGICAL HISTORY Hx Cholecystectomy: Yes - ANESTHESIA Hx Anesthesia: Yes Hx Anesthesia Reactions: No Hx Malignant Hyperthermia: No Meds Allergies/Adverse Reactions: Allergies Allergy/AdvReac Type Severity Reaction Status Date / Time No Known Allergies Allergy Verified 01/14/18 16:05 - Medications Medications: Current Medications Escitalopram Oxalate (Lexapro) 20 mg PO DAILY [facility] Famotidine (Pepcid) 20 mg PO DAILY [facility] Heparin Sodium (Porcine) (Heparin) 5,000 units SC Q8 [facility] Last Admin: 01/15/18 06:05 Dose: 5,000 units Hydrochlorothiazide (Microzide) 12.5 mg PO DAILY [facility] Vancomycin/Sodium Chloride (Vancomycin 1 Gm/Ns 200 Ml) 1 gm in 200 mls @ 133.333 mls/hr IVPB Q12H [facility] PRN Reason: Protocol Stop: 01/20/18 06:01 Last Admin: 01/15/18 05:38 Dose: 133.333 mls/hr Sodium Chloride (Sodium Chloride 0.9%) 1,000 mls @ 100 mls/hr IV .Q10H [facility] Last Admin: 01/14/18 23:53 Dose: 100 mls/hr Piperacillin Sod/Tazobactam Sod (Zosyn 3.375 Gm Iv Premix) 3.375 gm in 50 mls @ 100 mls/hr IVPB Q8H [facility] PRN Reason: Protocol Last Admin: 01/15/18 02:04 Dose: 100 mls/hr Ibuprofen (Motrin Tab) 400 mg PO Q6H PRN PRN Reason: Fever >100.4 F Lisinopril (Zestril) 20 mg PO DAILY [facility] Rosuvastatin Calcium (Crestor) 10 mg PO HS [facility] Saccharomyces Boulardii (Florastor) 250 mg PO BID [facility] Physical Exam - Constitutional Appears: Non-toxic, No Acute Distress - Head Exam Head Exam: ATRAUMATIC, NORMOCEPHALIC - Eye Exam Eye Exam: EOMI, Normal appearance, PERRL - ENT Exam ENT Exam: Mucous Membranes Moist, Normal Exam - Neck Exam Neck exam: Negative for: Lymphadenopathy, Tenderness, Thyromegaly - Respiratory Exam Respiratory Exam: Clear to Auscultation Bilateral, NORMAL BREATHING PATTERN. absent: Rales, Rhonchi - Cardiovascular Exam Cardiovascular Exam: REGULAR RHYTHM, +S1, +S2. absent: Tachycardia, Systolic Murmur - GI/Abdominal Exam GI & Abdominal Exam: Normal Bowel Sounds, Soft. absent: Tenderness - Extremities Exam Extremities exam: Positive for: full ROM, normal capillary refill, pedal pulses present - Neurological Exam Neurological exam: Alert, Oriented x3, Reflexes Normal - Psychiatric Exam Psychiatric exam: Normal Affect, Normal Mood - Skin Skin Exam: Dry, Intact, Warm Additional comments: palpable left subclavian portacath. adjacent skin non tender, non erythematous, non edematous. no drainage from site. well healing scar at surgical site Results - Vital Signs Recent Vital Signs: Last Vital Signs Temp 98.0 F 01/14/18 23:40 Pulse 82 01/15/18 03:59 Resp 20 01/14/18 23:40 BP 118/67 01/14/18 23:40 Pulse Ox 95 01/14/18 23:40 - Labs Result Diagrams: 01/15/18 06:47 01/15/18 06:47 Labs: Laboratory Results - last 24 hr 01/14/18 01/14/18 01/14/18 17:52 17:52 17:52 WBC 25.6 H D RBC 3.57 L Hgb 10.9 L D Hct 32.2 L MCV 90.4 MCH 30.6 MCHC 33.8 RDW 13.4 Plt Count 385 MPV 7.2 Neut % (Auto) 94.7 H Lymph % (Auto) 2.3 L [place] % (Auto) 2.6 Eos % (Auto) 0.0 Baso % (Auto) 0.4 Neut # (Auto) 24.2 H Lymph # (Auto) 0.6 L [place] # (Auto) 0.7 Eos # (Auto) 0.0 Baso # (Auto) 0.1 Neutrophils % (Manual) 93 H Band Neutrophils % 2 Lymphocytes % (Manual) 2 L Monocytes % (Manual) 3 Platelet Estimate Normal RBC Morphology Normal D-Dimer, Quantitative pO2 VBG pH VBG pCO2 VBG HCO3 VBG Total CO2 VBG O2 Sat (Calc) VBG Base Excess VBG Potassium Glucose Lactate Sodium 139 Potassium 4.4 Chloride 97 L Carbon Dioxide 27 Anion Gap 19 BUN 13 Creatinine 0.7 Est GFR ( Amer) > 60 Est GFR (Non-Af Amer) > 60 Random Glucose 236 H Calcium 9.8 Total Bilirubin 0.3 AST 31 ALT 70 H Alkaline Phosphatase 102 Total Protein 7.7 Albumin 4.2 Globulin 3.5 Albumin/Globulin Ratio 1.2 Procalcitonin Venous Blood Potassium Urine Color Yellow Urine Clarity Clear Urine pH 5.0 Ur Specific Pool 1.011 Urine Protein Negative Urine Glucose (UA) Normal Urine Ketones Negative Urine Blood Negative Urine Nitrate Negative Urine Bilirubin Negative Urine Urobilinogen Normal Ur Leukocyte Esterase Neg Urine WBC (Auto) < 1 Ur Squamous Epith Cells < 1 01/14/18 01/14/18 01/15/18 17:56 20:58 06:47 WBC 25.2 H RBC 3.33 L Hgb 10.1 L Hct 30.1 L MCV 90.5 MCH 30.5 MCHC 33.7 RDW 13.1 Plt Count 384 MPV 7.3 Neut % (Auto) 88.1 H Lymph % (Auto) 6.0 L [place] % (Auto) 5.8 Eos % (Auto) 0.0 Baso % (Auto) 0.1 Neut # (Auto) 22.2 H Lymph # (Auto) 1.5 [place] # (Auto) 1.5 H Eos # (Auto) 0.0 Baso # (Auto) 0.0 Neutrophils % (Manual) Band Neutrophils % Lymphocytes % (Manual) Monocytes % (Manual) Platelet Estimate RBC Morphology D-Dimer, Quantitative pO2 52 VBG pH 7.45 H VBG pCO2 30 L VBG HCO3 23.0 VBG Total CO2 21.8 L VBG O2 Sat (Calc) 92.5 H VBG Base Excess -2.1 L VBG Potassium 3.1 L Glucose 188 H Lactate 1.7 Sodium 141.0 Potassium Chloride 110.0 H Carbon Dioxide Anion Gap BUN Creatinine Est GFR ( Amer) Est GFR (Non-Af Amer) Random Glucose Calcium Total Bilirubin AST ALT Alkaline Phosphatase Total Protein Albumin Globulin Albumin/Globulin Ratio Procalcitonin 17.13 H Venous Blood Potassium 3.1 L Urine Color Urine Clarity Urine pH Ur Specific Pool Urine Protein Urine Glucose (UA) Urine Ketones Urine Blood Urine Nitrate Urine Bilirubin Urine Urobilinogen Ur Leukocyte Esterase Urine WBC (Auto) Ur Squamous Epith Cells 01/15/18 01/15/18 06:47 06:47 WBC RBC Hgb Hct MCV MCH MCHC RDW Plt Count MPV Neut % (Auto) Lymph % (Auto) [place] % (Auto) Eos % (Auto) Baso % (Auto) Neut # (Auto) Lymph # (Auto) [place] # (Auto) Eos # (Auto) Baso # (Auto) Neutrophils % (Manual) Band Neutrophils % Lymphocytes % (Manual) Monocytes % (Manual) Platelet Estimate RBC Morphology D-Dimer, Quantitative 1522 H pO2 VBG pH VBG pCO2 VBG HCO3 VBG Total CO2 VBG O2 Sat (Calc) VBG Base Excess VBG Potassium Glucose Lactate Sodium 142 Potassium Chloride Carbon Dioxide Anion Gap BUN Creatinine Est GFR ( Amer) Est GFR (Non-Af Amer) Random Glucose Calcium Total Bilirubin AST ALT Alkaline Phosphatase Total Protein Albumin Globulin Albumin/Globulin Ratio Procalcitonin Venous Blood Potassium Urine Color Urine Clarity Urine pH Ur Specific Pool Urine Protein Urine Glucose (UA) Urine Ketones Urine Blood Urine Nitrate Urine Bilirubin Urine Urobilinogen Ur Leukocyte Esterase Urine WBC (Auto) Ur Squamous Epith Cells Assessment & Plan - Assessment and Plan (Free Text) Plan: 67F s/p permacath insertion with leukocytosis and fevers Wound Cx gram stain negative, waiting on final culture Permacath site clinically benign, healing well and usable Defer the primary for medical management no acute surgical intervention at this time will follow until wound and blood culture returns Cont with abx per ID Further recs per Dr. Riojas - Date & Time Date: 01/15/18 Time: 06:30
--- NOTE | 2018-01-15 08:04 | RAD ---
Date of service: 01/14/2018 PROCEDURE: CHEST RADIOGRAPH, 1 VIEW HISTORY: FEVER COMPARISON: Comparison is made with 12/20/2017 FINDINGS: LUNGS: Mild pulmonary vascular congestion. PLEURA: No pneumothorax or pleural fluid seen. CARDIOVASCULAR: Normal. OSSEOUS STRUCTURES: No significant abnormalities. VISUALIZED UPPER ABDOMEN: Normal. OTHER FINDINGS: Left-sided Port-A-Cath is again seen in place. IMPRESSION: Mild pulmonary vascular congestion. Suboptimal study due to portable technique and patient's body habitus.
[2018-01-15 08:58] LABS: BANDS 3 % (0-2); LYMPHOCYTE 5 % (20-40); MONOCYTE 3 % (0-10); NEUTROPHIL 88 % (50-75); PLATELET ESTIMATE NORMAL (NORMAL); REACTIVE LYMPHOCYTES 1 % (0-0); TOTAL CELLS COUNTED 100
[2018-01-15 08:59] LABS: ANISOCYTOSIS SLIGHT; HYPOCHROMIC SLIGHT; POIKILOCYTOSIS SLIGHT
[2018-01-15 09:00] LABS: TOXIC GRANULATION PRESENT
[2018-01-15] MEDS: Sodium Chloride 0.9% 1,000 ML IV SCH ×2 (10:08→18:00)
[2018-01-15] MEDS: Saccharomyces Boulardi 250 mg Cap PO SCH ×2 (10:21→17:50)
[2018-01-15] MEDS ORDERED: Iohexol 240 (50 ml) PO ONE ×2 (13:00→14:00)
[2018-01-15 13:22] LABS: CK-MB 1.54 ng/mL (0.0-3.38)
[2018-01-15] MEDS ORDERED: Iodixanol 320 mg/ml 150 ml Bottle IV ONE (16:11)
--- NOTE | 2018-01-15 17:41 | CP.PCM.CON ---
History of Present Illness - History of Present Illness History of Present Illness: 67 yo woman with newly diagnosed breast cancer, right breast clinically T2N1, [id number] negative, ER and ME positive, started fist cycle of chemotherapy with adriamycin and cytoxan 3 weeks ago, came in yesterday for her second cycle, developed rigors and a fever of 101, after which she was given Tylenol and referred to the ER for work up of bacteremia and sepsis. Her WBC count in the office prior to chemo was 12, Hgb of 11.7. She was seen a week prior to yesterday's visit for a fever, labs done then were normal, WBC was 12, given a weeks' course of antibiotics with resolution of her symptoms. Her cultures are still pending, however her CAT scans show bilateral pulmonary nodules, largest 1.7 cm, mets versus septic emboli. The patient remains stable and asymptomatic and afebrile. Past Patient History - Infectious Disease Hx of Infectious Diseases: None - Past Medical History & Family History Past Medical History?: Yes - Past Social History Smoking Status: Never Smoked Alcohol: None Drugs: Denies - CARDIAC Hx Hypercholesterolemia: Yes Hx Hypertension: Yes - PULMONARY Hx Respiratory Disorders: No - NEUROLOGICAL Hx Neurological Disorder: No - HEENT Hx HEENT Problems: No - RENAL Hx Chronic Kidney Disease: No - ENDOCRINE/METABOLIC Hx Endocrine Disorders: No - HEMATOLOGICAL/ONCOLOGICAL Hx Blood Disorders: Yes Hx Cancer: Yes (RIGHT BREAST-RADIATION DONE-NO CHEMO) - INTEGUMENTARY Hx Dermatological Problems: No - MUSCULOSKELETAL/RHEUMATOLOGICAL Hx Musculoskeletal Disorders: No - GASTROINTESTINAL Hx Gall Bladder Disease: Yes - GENITOURINARY/GYNECOLOGICAL Hx Genitourinary Disorders: Yes Other/Comment: HX: FIBROID UTERUS - PSYCHIATRIC Hx Depression: Yes Hx Substance Use: No - SURGICAL HISTORY Hx Cholecystectomy: Yes - ANESTHESIA Hx Anesthesia: Yes Hx Anesthesia Reactions: No Hx Malignant Hyperthermia: No Meds Allergies/Adverse Reactions: Allergies Allergy/AdvReac Type Severity Reaction Status Date / Time No Known Allergies Allergy Verified 01/14/18 16:05 - Medications Medications: Current Medications Escitalopram Oxalate (Lexapro) 20 mg PO DAILY [facility] Last Admin: 01/15/18 10:22 Dose: 20 mg Famotidine (Pepcid) 20 mg PO DAILY [facility] Last Admin: 01/15/18 10:21 Dose: 20 mg Heparin Sodium (Porcine) (Heparin) 5,000 units SC Q8 [facility] Last Admin: 01/15/18 14:19 Dose: 5,000 units Hydrochlorothiazide (Microzide) 12.5 mg PO DAILY [facility] Last Admin: 01/15/18 10:22 Dose: 12.5 mg Vancomycin/Sodium Chloride (Vancomycin 1 Gm/Ns 200 Ml) 1 gm in 200 mls @ 133.333 mls/hr IVPB Q12H SHAYLA PRN Reason: Protocol Stop: 01/20/18 06:01 Last Admin: 01/15/18 05:38 Dose: 133.333 mls/hr Sodium Chloride (Sodium Chloride 0.9%) 1,000 mls @ 100 mls/hr IV .Q10H [facility] Last Admin: 01/15/18 10:08 Dose: Not Given Piperacillin Sod/Tazobactam Sod (Zosyn 3.375 Gm Iv Premix) 3.375 gm in 50 mls @ 100 mls/hr IVPB Q8H [facility] PRN Reason: Protocol Last Admin: 01/15/18 10:21 Dose: 100 mls/hr Ibuprofen (Motrin Tab) 400 mg PO Q6H PRN PRN Reason: Fever >100.4 F Lisinopril (Zestril) 20 mg PO DAILY [facility] Last Admin: 01/15/18 10:21 Dose: 20 mg Rosuvastatin Calcium (Crestor) 10 mg PO HS [facility] Saccharomyces Boulardii (Florastor) 250 mg PO BID [facility] Last Admin: 01/15/18 10:21 Dose: 250 mg Results - Vital Signs Recent Vital Signs: Last Vital Signs Temp 97.7 F 01/15/18 15:05 Pulse 72 01/15/18 15:05 Resp 20 01/15/18 15:05 BP 125/69 01/15/18 15:05 Pulse Ox 98 01/15/18 15:05 - Labs Result Diagrams: 01/15/18 06:47 01/15/18 06:47 Labs: Laboratory Results - last 24 hr 01/14/18 01/14/18 01/14/18 17:52 17:52 17:52 WBC 25.6 H D RBC 3.57 L Hgb 10.9 L D Hct 32.2 L MCV 90.4 MCH 30.6 MCHC 33.8 RDW 13.4 Plt Count 385 MPV 7.2 Neut % (Auto) 94.7 H Lymph % (Auto) 2.3 L Daniels % (Auto) 2.6 Eos % (Auto) 0.0 Baso % (Auto) 0.4 Neut # (Auto) 24.2 H Lymph # (Auto) 0.6 L Daniels # (Auto) 0.7 Eos # (Auto) 0.0 Baso # (Auto) 0.1 Neutrophils % (Manual) 93 H Band Neutrophils % 2 Lymphocytes % (Manual) 2 L Reactive Lymphs % Monocytes % (Manual) 3 Toxic Granulation Platelet Estimate Normal RBC Morphology Normal Hypochromasia (manual) Poikilocytosis (manual Anisocytosis (manual) ESR D-Dimer, Quantitative pO2 VBG pH VBG pCO2 VBG HCO3 VBG Total CO2 VBG O2 Sat (Calc) VBG Base Excess VBG Potassium Glucose Lactate Sodium 139 Potassium 4.4 Chloride 97 L Carbon Dioxide 27 Anion Gap 19 BUN 13 Creatinine 0.7 Est GFR ( Amer) > 60 Est GFR (Non-Af Amer) > 60 Random Glucose 236 H Calcium 9.8 Phosphorus Magnesium Total Bilirubin 0.3 AST 31 ALT 70 H Alkaline Phosphatase 102 Total Creatine Kinase CK-MB (Mass) Troponin I C-Reactive Protein Total Protein 7.7 Albumin 4.2 Globulin 3.5 Albumin/Globulin Ratio 1.2 Procalcitonin Venous Blood Potassium Urine Color Yellow Urine Clarity Clear Urine pH 5.0 Ur Specific [place] 1.011 Urine Protein Negative Urine Glucose (UA) Normal Urine Ketones Negative Urine Blood Negative Urine Nitrate Negative Urine Bilirubin Negative Urine Urobilinogen Normal Ur Leukocyte Esterase Neg Urine WBC (Auto) < 1 Ur Squamous Epith Cells < 1 01/14/18 01/14/18 01/15/18 17:56 20:58 06:47 WBC 25.2 H RBC 3.33 L Hgb 10.1 L Hct 30.1 L MCV 90.5 MCH 30.5 MCHC 33.7 RDW 13.1 Plt Count 384 MPV 7.3 Neut % (Auto) 88.1 H Lymph % (Auto) 6.0 L Daniels % (Auto) 5.8 Eos % (Auto) 0.0 Baso % (Auto) 0.1 Neut # (Auto) 22.2 H Lymph # (Auto) 1.5 Daniels # (Auto) 1.5 H Eos # (Auto) 0.0 Baso # (Auto) 0.0 Neutrophils % (Manual) 88 H Band Neutrophils % 3 H Lymphocytes % (Manual) 5 L Reactive Lymphs % 1 H Monocytes % (Manual) 3 Toxic Granulation Present Platelet Estimate Normal RBC Morphology Hypochromasia (manual) Slight Poikilocytosis (manual Slight Anisocytosis (manual) Slight ESR 63 H D-Dimer, Quantitative pO2 52 VBG pH 7.45 H VBG pCO2 30 L VBG HCO3 23.0 VBG Total CO2 21.8 L VBG O2 Sat (Calc) 92.5 H VBG Base Excess -2.1 L VBG Potassium 3.1 L Glucose 188 H Lactate 1.7 Sodium 141.0 Potassium Chloride 110.0 H Carbon Dioxide Anion Gap BUN Creatinine Est GFR ( Amer) Est GFR (Non-Af Amer) Random Glucose Calcium Phosphorus Magnesium Total Bilirubin AST ALT Alkaline Phosphatase Total Creatine Kinase CK-MB (Mass) Troponin I C-Reactive Protein Total Protein Albumin Globulin Albumin/Globulin Ratio Procalcitonin 17.13 H Venous Blood Potassium 3.1 L Urine Color Urine Clarity Urine pH Ur Specific [place] Urine Protein Urine Glucose (UA) Urine Ketones Urine Blood Urine Nitrate Urine Bilirubin Urine Urobilinogen Ur Leukocyte Esterase Urine WBC (Auto) Ur Squamous Epith Cells 01/15/18 01/15/18 01/15/18 06:47 06:47 06:47 WBC RBC Hgb Hct MCV MCH MCHC RDW Plt Count MPV Neut % (Auto) Lymph % (Auto) Daniels % (Auto) Eos % (Auto) Baso % (Auto) Neut # (Auto) Lymph # (Auto) Daniels # (Auto) Eos # (Auto) Baso # (Auto) Neutrophils % (Manual) Band Neutrophils % Lymphocytes % (Manual) Reactive Lymphs % Monocytes % (Manual) Toxic Granulation Platelet Estimate RBC Morphology Hypochromasia (manual) Poikilocytosis (manual Anisocytosis (manual) ESR D-Dimer, Quantitative 1522 H pO2 VBG pH VBG pCO2 VBG HCO3 VBG Total CO2 VBG O2 Sat (Calc) VBG Base Excess VBG Potassium Glucose Lactate Sodium 142 Potassium 3.9 Chloride 104 Carbon Dioxide 29 Anion Gap 13 BUN 13 Creatinine 0.6 L Est GFR ( Amer) > 60 Est GFR (Non-Af Amer) > 60 Random Glucose 145 H Calcium 9.9 Phosphorus 3.7 Magnesium 2.2 Total Bilirubin 0.2 AST 31 ALT 61 H Alkaline Phosphatase 112 Total Creatine Kinase CK-MB (Mass) Troponin I C-Reactive Protein 152.90 H Total Protein 7.1 Albumin 3.9 Globulin 3.2 Albumin/Globulin Ratio 1.2 Procalcitonin 24.15 H Venous Blood Potassium Urine Color Urine Clarity Urine pH Ur Specific [place] Urine Protein Urine Glucose (UA) Urine Ketones Urine Blood Urine Nitrate Urine Bilirubin Urine Urobilinogen Ur Leukocyte Esterase Urine WBC (Auto) Ur Squamous Epith Cells 01/15/18 12:51 WBC RBC Hgb Hct MCV MCH MCHC RDW Plt Count MPV Neut % (Auto) Lymph % (Auto) Daniels % (Auto) Eos % (Auto) Baso % (Auto) Neut # (Auto) Lymph # (Auto) Daniels # (Auto) Eos # (Auto) Baso # (Auto) Neutrophils % (Manual) Band Neutrophils % Lymphocytes % (Manual) Reactive Lymphs % Monocytes % (Manual) Toxic Granulation Platelet Estimate RBC Morphology Hypochromasia (manual) Poikilocytosis (manual Anisocytosis (manual) ESR D-Dimer, Quantitative pO2 VBG pH VBG pCO2 VBG HCO3 VBG Total CO2 VBG O2 Sat (Calc) VBG Base Excess VBG Potassium Glucose Lactate Sodium Potassium Chloride Carbon Dioxide Anion Gap BUN Creatinine Est GFR ( Amer) Est GFR (Non-Af Amer) Random Glucose Calcium Phosphorus Magnesium Total Bilirubin AST ALT Alkaline Phosphatase Total Creatine Kinase 72 CK-MB (Mass) 1.54 Troponin I < 0.0120 C-Reactive Protein Total Protein Albumin Globulin Albumin/Globulin Ratio Procalcitonin Venous Blood Potassium Urine Color Urine Clarity Urine pH Ur Specific [place] Urine Protein Urine Glucose (UA) Urine Ketones Urine Blood Urine Nitrate Urine Bilirubin Urine Urobilinogen Ur Leukocyte Esterase Urine WBC (Auto) Ur Squamous Epith Cells Assessment & Plan (1) Carcinoma of breast, stage 3 Assessment and Plan: 67 yo woman with clinical Stage IIB invasive ductal cancer, new pulmonary nodules with fever and chills, need to r/o infectious etio, will discuss with IR and ID once patient stable and cultures are back, about the need for biopsy. Will order tumor markers. Status: Acute
--- NOTE | 2018-01-15 17:42 | CT ---
Date of service: 01/15/2018 PROCEDURE: CT Chest with contrast (Pulmonary Angiogram) HISTORY: r/o PE COMPARISON: Plain radiographs from 01/14/2018 TECHNIQUE: Axial computed tomography images were obtained of the chest in the pulmonary arterial phase of enhancement. Coronal and sagittal reformatted images were created and reviewed. Intravenous contrast dose: 100 mL Visipaque 320 Radiation dose: Total exam DLP = 388.76 mGy-cm. This CT exam was performed using one or more of the following dose reduction techniques: Automated exposure control, adjustment of the mA and/or kV according to patient size, and/or use of iterative reconstruction technique. FINDINGS: PULMONARY ARTERIES: There are no filling defects in the pulmonary arteries to suggest pulmonary embolism. AORTA: No acute findings. No thoracic aortic aneurysm. LUNGS: The lungs are well inflated. There are several scattered nodules with irregular margins in the lungs, the largest subpleural nodule in the right upper lobe measures 1.7 cm. (Series 4, image 37). PLEURAL SPACES: No effusion or pneumothorax. HEART: There is mild cardiomegaly. No significant pericardial effusion. LYMPH NODES: No lymphadenopathy. BONES, CHEST WALL: Multilevel degenerative disc disease. No fracture or destructive lesion OTHER FINDINGS: Unremarkable. IMPRESSION: No CT evidence for acute pulmonary embolism. Scattered pulmonary nodules, the largest subpleural nodule in the right upper lobe measures 1.7 cm. With the stated history of metastatic carcinoma, these are likely metastatic in etiology however given irregular margins, septic emboli and fungal infections cannot be excluded.
--- NOTE | 2018-01-15 17:52 | CT ---
Date of service: 01/15/2018 PROCEDURE: CT Abdomen and Pelvis with contrast HISTORY: hx of met CA, fever COMPARISON: None. TECHNIQUE: CT scan of the abdomen and pelvis was performed after administration of intravenous contrast. Oral contrast was administered. Coronal and sagittal reformatted images were obtained. Contrast dose: 100 mL Visipaque 320 Radiation dose: Total exam DLP = 865.50 mGy-cm. This CT exam was performed using one or more of the following dose reduction techniques: Automated exposure control, adjustment of the mA and/or kV according to patient size, and/or use of iterative reconstruction technique. FINDINGS: LIVER: Mild hepatomegaly and diffuse fatty liver. A small low-attenuation lesion in the left hepatic lobe is too small to characterize by CT criteria. No ductal dilatation. GALLBLADDER AND BILE DUCTS: Surgically absent. PANCREAS: Normal in size with homogeneous enhancement. No gross lesion or ductal dilatation. SPLEEN: Normal in size and appearance. ADRENALS: No discrete nodule. KIDNEYS AND URETERS: Normal in size with homogeneous enhancement. No hydronephrosis. No solid mass. VASCULATURE: No aortic aneurysm. BOWEL: The small bowel loops are normal in caliber. There is sigmoid diverticulosis without CT evidence for acute diverticulitis. APPENDIX: Normal appendix. PERITONEUM: No free fluid. No free air. LYMPH NODES: No enlarged lymph nodes. BLADDER: Partially decompressed. REPRODUCTIVE: The uterus is surgically absent. BONES: No acute fracture.There is diffuse bone demineralization and multilevel degenerative changes in the spine. OTHER FINDINGS: None. IMPRESSION: 1. No acute abdominal or pelvic abnormality. 2. Mild hepatomegaly and fatty liver. 3. Small subcentimeter lesion in the left hepatic lobe is too small to characterize by CT criteria. 4. Sigmoid diverticulosis without CT evidence for acute diverticulitis.
--- NOTE | 2018-01-15 20:06 | CP.PCM.PN ---
Subjective - Date & Time of Evaluation Date of Evaluation: 01/15/18 Time of Evaluation: 20:06 - Subjective Subjective: CHIEF COMPLAINTS TODAY : temperature trending down. VSS Complains of chest tightness. Denies shortness of breath States right breast mass feels softer after chemotherapy. seen by Oncology and Cardiology and SURGERY ROS. HEENT : N. Resp : No cough, wheezing ,pleuritic CP ,or hemoptysis Cardio : No anginal CP, PND, orthopnea, palpitation GI : No abd.pain, n/v ,diarrhea or GI bleeding . INTELLIGENCE SPECIALIST : No headache, vertigo, focal deficit. Musculoskel : No joint swelling , Derm : No rash Psych : Normal affect. Ext : No swelling ,calf pain PE. Pt. is alert awake in no distress. V.S As noted in the chart Head ,ear nose,throat and eyes : Normal. Neck : Supple with normal carotids. Lungs: Clear air entry. Heart : S1 & S2 normal with S4. No murmur. Abd : Soft non tender with normal bowel sounds. Neuro : Moves all ext. with no localized deficit. Ext : No edema with intact pulses.Non tender calves Derm : No rashes or decubitus ulcer. RT. BREAST-SOME INDURATION AROUND AREOLA, NO CELLULITIS .LT. CHEST WALL, MILD TENDERNESS ON PALPATION LEFT pORT-a-cATH. LABS/RADIOLOGY: d-dimer 1522 high WBC25.2. Creatinine 0.6. Pro-calcitonin high. BLOOD CULTURES-PENDING Objective - Vital Signs/Intake and Output Vital Signs (last 24 hours): Temp Pulse Resp BP Pulse Ox 97.7 F 90 20 125/69 97 01/15/18 15:05 01/15/18 17:43 01/15/18 15:05 01/15/18 15:05 01/15/18 18:00 Intake and Output: 01/15/18 01/16/18 18:59 06:59 Intake Total 2800 Balance 2800 - Medications Medications: Current Medications Escitalopram Oxalate (Lexapro) 20 mg PO DAILY [facility] Last Admin: 01/15/18 10:22 Dose: 20 mg Famotidine (Pepcid) 20 mg PO DAILY [facility] Last Admin: 01/15/18 10:21 Dose: 20 mg Heparin Sodium (Porcine) (Heparin) 5,000 units SC Q8 [facility] Last Admin: 01/15/18 14:19 Dose: 5,000 units Hydrochlorothiazide (Microzide) 12.5 mg PO DAILY [facility] Last Admin: 01/15/18 10:22 Dose: 12.5 mg Vancomycin/Sodium Chloride (Vancomycin 1 Gm/Ns 200 Ml) 1 gm in 200 mls @ 133.333 mls/hr IVPB Q12H [facility] PRN Reason: Protocol Stop: 01/20/18 06:01 Last Admin: 01/15/18 17:51 Dose: 133.333 mls/hr Sodium Chloride (Sodium Chloride 0.9%) 1,000 mls @ 100 mls/hr IV .Q10H [facility] Last Admin: 01/15/18 18:00 Dose: 100 mls/hr Piperacillin Sod/Tazobactam Sod (Zosyn 3.375 Gm Iv Premix) 3.375 gm in 50 mls @ 100 mls/hr IVPB Q8H [facility] PRN Reason: Protocol Last Admin: 01/15/18 17:50 Dose: 100 mls/hr Ibuprofen (Motrin Tab) 400 mg PO Q6H PRN PRN Reason: Fever >100.4 F Lisinopril (Zestril) 20 mg PO DAILY [facility] Last Admin: 01/15/18 10:21 Dose: 20 mg Rosuvastatin Calcium (Crestor) 10 mg PO HS [facility] Saccharomyces Boulardii (Florastor) 250 mg PO BID [facility] Last Admin: 01/15/18 17:50 Dose: 250 mg - Labs Labs: 01/15/18 06:47 01/15/18 06:47 Assessment and Plan (1) Sepsis Assessment & Plan: WOUND CULTURE LEFT pORT-a-cATH SITE.--P CONTINUE iv VANCOMYCIN 1 G EVERY 12 HOURLY 01/14/18. CONTINUE iv zOSYN 3.375 EVERY 8 HOURLY. 01/14/18 2-d ECHO R/O PERICARDIAL EFFUSION (2) Leukocytosis (leucocytosis) Assessment & Plan: STILL WITH LEUKOCYTOSIS. wbc 25.2, h&h 10.1 AND 30.1. bLOOD CULTURES; 01/14/18 - P CONTINUE iv ANTIBIOTICS FOR NOW. fOLLOW-UP dOPPLER VENOUS STUDIES. fOLLOW-UP 2-d ECHO. Status: Acute (3) Carcinoma of breast, stage 3 Assessment & Plan: CT CHEST ANGIO -VE PE. Multiple pulmonary nodules seen subpleural. largest being right upper lobe size 1.7 cm. ?metastatc/?septic pulmonary emboli/or fungal infection. 2D-ECHO PENDING. Status: Acute (4) Hypertension Status: Acute
--- NOTE | 2018-01-15 22:54 | CP.PCM.CON ---
History of Present Illness - History of Present Illness History of Present Illness: Reason For Consultation Ms. Mata is a pleasant 67yoF [facility] right invasive ductal carcinoma, hypertension, depression who comes to [facility] after experiencing chills and rigor yesterday at chemotherapy. Her left subclavian portacath was placed on 12/20/17, and she started chemotherapy on [place], 01/09/18. Her first session of chemo was uneventful. It was toward the end of her second chemotherapy session which she developed chills, fever, and rigor. She did not lose consciousness but was unable to control her body. She did not become incontinent, and has urinated and had BM since yesterday. She reports that her fever was as high as 106, but has been afebrile overnight. Admits that a friend at chemotherapy is sick. Denies chest pain, but admits a tightness in her chest impeding her from taking deep breaths. Admits to chills, tinnitus, change in taste, decreased appetite, loose BM, weight loss since starting chemo, decreased interest in activities. Denies SOB, palpitations, n/v, hematemesis, hematochezia, melena, extremity swelling, bruising, bleeding, erythema. Review of Systems - Constitutional Constitutional: Anorexia, Chills, Fatigue, Fever, Lethargy, Weight Loss. absent : Excessive Sweating, Headache - EENT Eyes: absent: Blurred Vision, Change in Vision, Diplopia, Discharge, Irritation Ears: Tinnitus. absent: Disequilibrium, Dizziness Nose/Mouth/Throat: absent: Nasal Congestion, Post Nasal Drip, Bleeding Gums, Dysphagia, Mouth Pain, Odynophagia - Breasts Breasts: absent: Change in Shape, Nipple Discharge, Skin Changes, Swelling - Cardiovascular Cardiovascular: absent: Chest Pain, Claudication, Irregular Heart Rhythm, Pain Radiating to Arm/Neck/Jaw, Lightheadedness, Palpitations - Respiratory Respiratory: absent: Cough, Hemoptysis, Wheezing, Pain with Coughing - Gastrointestinal Gastrointestinal: Change in Bowel Habits. absent: Abdominal Pain, Constipation , Diarrhea, Dyspepsia, Dysphagia, Hematochezia, Melena - Genitourinary Genitourinary: absent: Hematuria, Nocturia, Urinary Hesitance, Urinary Urgency - Musculoskeletal Musculoskeletal: absent: Arthralgias, Joint Swelling, Limited Range of Motion, Muscle Weakness, Numbness, Stiffness, Tingling - Integumentary Integumentary: absent: Dry Skin, Lesions, Skin Ulcer, Sores, Swelling, Wounds - Neurological Neurological: Weakness. absent: Behavioral Changes, Burning Sensations, Confusion, Numbness, Headaches, Loss of Vision, Syncope, Tingling, Tremor - Psychiatric Psychiatric: absent: Confusion, Memory Loss, Paranoia - Endocrine Endocrine: Cold Intolorance, Heat Intolorance. absent: Change in Body Appearance, Increase in Ring/Shoe/Hat Size - Hematologic/Lymphatic Hematologic: absent: Easy Bleeding, Easy Bruising Meds Allergies/Adverse Reactions: Allergies Allergy/AdvReac Type Severity Reaction Status Date / Time No Known Allergies Allergy Verified 01/14/18 16:05 - Medications Medications: Current Medications Escitalopram Oxalate (Lexapro) 20 mg PO DAILY [facility] Famotidine (Pepcid) 20 mg PO DAILY [facility] Heparin Sodium (Porcine) (Heparin) 5,000 units SC Q8 [facility] Last Admin: 01/15/18 06:05 Dose: 5,000 units Hydrochlorothiazide (Microzide) 12.5 mg PO DAILY [facility] Vancomycin/Sodium Chloride (Vancomycin 1 Gm/Ns 200 Ml) 1 gm in 200 mls @ 133.333 mls/hr IVPB Q12H [facility] PRN Reason: Protocol Stop: 01/20/18 06:01 Last Admin: 01/15/18 05:38 Dose: 133.333 mls/hr Sodium Chloride (Sodium Chloride 0.9%) 1,000 mls @ 100 mls/hr IV .Q10H [facility] Last Admin: 01/14/18 23:53 Dose: 100 mls/hr Piperacillin Sod/Tazobactam Sod (Zosyn 3.375 Gm Iv Premix) 3.375 gm in 50 mls @ 100 mls/hr IVPB Q8H [facility] PRN Reason: Protocol Last Admin: 01/15/18 02:04 Dose: 100 mls/hr Ibuprofen (Motrin Tab) 400 mg PO Q6H PRN PRN Reason: Fever >100.4 F Lisinopril (Zestril) 20 mg PO DAILY [facility] Rosuvastatin Calcium (Crestor) 10 mg PO HS [facility] Saccharomyces Boulardii (Florastor) 250 mg PO BID [facility] Physical Exam - Constitutional Appears: Non-toxic, No Acute Distress - Head Exam Head Exam: ATRAUMATIC, NORMOCEPHALIC - Eye Exam Eye Exam: EOMI, Normal appearance, PERRL - ENT Exam ENT Exam: Mucous Membranes Moist, Normal Exam - Neck Exam Neck exam: Negative for: Lymphadenopathy, Tenderness, Thyromegaly - Respiratory Exam Respiratory Exam: Clear to Auscultation Bilateral, NORMAL BREATHING PATTERN. absent: Rales, Rhonchi - Cardiovascular Exam Cardiovascular Exam: REGULAR RHYTHM, +S1, +S2. absent: Tachycardia, Systolic Murmur - GI/Abdominal Exam GI & Abdominal Exam: Normal Bowel Sounds, Soft. absent: Tenderness - Extremities Exam Extremities exam: Positive for: full ROM, normal capillary refill, pedal pulses present - Neurological Exam Neurological exam: Alert, Oriented x3, Reflexes Normal - Psychiatric Exam Psychiatric exam: Normal Affect, Normal Mood - Skin Skin Exam: Dry, Intact, Warm Additional comments: palpable left subclavian portacath. adjacent skin non tender, non erythematous, non edematous. no drainage from site. well healing scar at surgical site Past Patient History - Infectious Disease Hx of Infectious Diseases: None - Past Medical History & Family History Past Medical History?: Yes - Past Social History Smoking Status: Never Smoked Alcohol: None Drugs: Denies - CARDIAC Hx Hypercholesterolemia: Yes Hx Hypertension: Yes - PULMONARY Hx Respiratory Disorders: No - NEUROLOGICAL Hx Neurological Disorder: No - HEENT Hx HEENT Problems: No - RENAL Hx Chronic Kidney Disease: No - ENDOCRINE/METABOLIC Hx Endocrine Disorders: No - HEMATOLOGICAL/ONCOLOGICAL Hx Blood Disorders: Yes Hx Cancer: Yes (RIGHT BREAST-RADIATION DONE-NO CHEMO) - INTEGUMENTARY Hx Dermatological Problems: No - MUSCULOSKELETAL/RHEUMATOLOGICAL Hx Musculoskeletal Disorders: No - GASTROINTESTINAL Hx Gall Bladder Disease: Yes - GENITOURINARY/GYNECOLOGICAL Hx Genitourinary Disorders: Yes Other/Comment: HX: FIBROID UTERUS - PSYCHIATRIC Hx Depression: Yes Hx Substance Use: No - SURGICAL HISTORY Hx Cholecystectomy: Yes - ANESTHESIA Hx Anesthesia: Yes Hx Anesthesia Reactions: No Hx Malignant Hyperthermia: No Meds Allergies/Adverse Reactions: Allergies Allergy/AdvReac Type Severity Reaction Status Date / Time No Known Allergies Allergy Verified 01/14/18 16:05 - Medications Medications: Current Medications Escitalopram Oxalate (Lexapro) 20 mg PO DAILY [facility] Last Admin: 01/15/18 10:22 Dose: 20 mg Famotidine (Pepcid) 20 mg PO DAILY [facility] Last Admin: 01/15/18 10:21 Dose: 20 mg Heparin Sodium (Porcine) (Heparin) 5,000 units SC Q8 [facility] Last Admin: 01/15/18 22:00 Dose: 5,000 units Hydrochlorothiazide (Microzide) 12.5 mg PO DAILY [facility] Last Admin: 01/15/18 10:22 Dose: 12.5 mg Vancomycin/Sodium Chloride (Vancomycin 1 Gm/Ns 200 Ml) 1 gm in 200 mls @ 133.333 mls/hr IVPB Q12H [facility] PRN Reason: Protocol Stop: 01/20/18 06:01 Last Admin: 01/15/18 17:51 Dose: 133.333 mls/hr Sodium Chloride (Sodium Chloride 0.9%) 1,000 mls @ 100 mls/hr IV .Q10H [facility] Last Admin: 01/15/18 18:00 Dose: 100 mls/hr Piperacillin Sod/Tazobactam Sod (Zosyn 3.375 Gm Iv Premix) 3.375 gm in 50 mls @ 100 mls/hr IVPB Q8H [facility] PRN Reason: Protocol Last Admin: 01/15/18 17:50 Dose: 100 mls/hr Ibuprofen (Motrin Tab) 400 mg PO Q6H PRN PRN Reason: Fever >100.4 F Lisinopril (Zestril) 20 mg PO DAILY [facility] Last Admin: 01/15/18 10:21 Dose: 20 mg Rosuvastatin Calcium (Crestor) 10 mg PO HS [facility] Last Admin: 01/15/18 21:59 Dose: 10 mg Saccharomyces Boulardii (Florastor) 250 mg PO BID [facility] Last Admin: 01/15/18 17:50 Dose: 250 mg Results - Vital Signs Recent Vital Signs: Last Vital Signs Temp 97.7 F 01/15/18 15:05 Pulse 90 01/15/18 17:43 Resp 20 01/15/18 15:05 BP 125/69 01/15/18 15:05 Pulse Ox 97 01/15/18 18:00 - Labs Result Diagrams: 01/15/18 06:47 01/15/18 06:47 Labs: Laboratory Results - last 24 hr 01/15/18 01/15/18 01/15/18 06:47 06:47 06:47 WBC 25.2 H RBC 3.33 L Hgb 10.1 L Hct 30.1 L MCV 90.5 MCH 30.5 MCHC 33.7 RDW 13.1 Plt Count 384 MPV 7.3 Neut % (Auto) 88.1 H Lymph % (Auto) 6.0 L Robeson % (Auto) 5.8 Eos % (Auto) 0.0 Baso % (Auto) 0.1 Neut # (Auto) 22.2 H Lymph # (Auto) 1.5 Robeson # (Auto) 1.5 H Eos # (Auto) 0.0 Baso # (Auto) 0.0 Neutrophils % (Manual) 88 H Band Neutrophils % 3 H Lymphocytes % (Manual) 5 L Reactive Lymphs % 1 H Monocytes % (Manual) 3 Toxic Granulation Present Platelet Estimate Normal Hypochromasia (manual) Slight Poikilocytosis (manual Slight Anisocytosis (manual) Slight ESR 63 H D-Dimer, Quantitative Sodium 142 Potassium 3.9 Chloride 104 Carbon Dioxide 29 Anion Gap 13 BUN 13 Creatinine 0.6 L Est GFR ( Amer) > 60 Est GFR (Non-Af Amer) > 60 Random Glucose 145 H Calcium 9.9 Phosphorus 3.7 Magnesium 2.2 Total Bilirubin 0.2 AST 31 ALT 61 H Alkaline Phosphatase 112 Total Creatine Kinase CK-MB (Mass) Troponin I C-Reactive Protein 152.90 H Total Protein 7.1 Albumin 3.9 Globulin 3.2 Albumin/Globulin Ratio 1.2 Procalcitonin 24.15 H 01/15/18 01/15/18 01/15/18 06:47 12:51 17:02 WBC RBC Hgb Hct MCV MCH MCHC RDW Plt Count MPV Neut % (Auto) Lymph % (Auto) Robeson % (Auto) Eos % (Auto) Baso % (Auto) Neut # (Auto) Lymph # (Auto) Robeson # (Auto) Eos # (Auto) Baso # (Auto) Neutrophils % (Manual) Band Neutrophils % Lymphocytes % (Manual) Reactive Lymphs % Monocytes % (Manual) Toxic Granulation Platelet Estimate Hypochromasia (manual) Poikilocytosis (manual Anisocytosis (manual) ESR D-Dimer, Quantitative 1522 H Sodium Potassium Chloride Carbon Dioxide Anion Gap BUN Creatinine Est GFR ( Amer) Est GFR (Non-Af Amer) Random Glucose Calcium Phosphorus Magnesium Total Bilirubin AST ALT Alkaline Phosphatase Total Creatine Kinase 72 85 CK-MB (Mass) 1.54 2.10 Troponin I < 0.0120 < 0.0120 C-Reactive Protein Total Protein Albumin Globulin Albumin/Globulin Ratio Procalcitonin Assessment & Plan - Assessment and Plan (Free Text) Assessment: Consulted for pericardial effusion ECHO reviewed Normal EF 01/10/18) Small effusion Repeat ECHO
[2018-01-15 23:23] LABS: CK-MB 2.95 ng/mL (0.0-3.38)
[2018-01-16] MEDS: Piperacill/Tazo 3.375gm in Dex 3.375 GM/50 ML BAG IVPB SCH ×2 (02:16→09:23)
[2018-01-16] MEDS: Vancomycin 1 gm/NS 200 ml 1 GM/200 ML BAG IVPB SCH (05:30)
[2018-01-16] MEDS: Sodium Chloride 0.9% 1,000 ML IV SCH ×2 (05:35→14:37)
--- NOTE | 2018-01-16 06:31 | CP.PCM.PN ---
<Bahman Gorman - Last Filed: 01/16/18 20:46> Subjective - Date & Time of Evaluation Date of Evaluation: 01/16/18 Time of Evaluation: 06:31 - Subjective Subjective: Medicine note for Hospitalist Service Pt seen and examined at bedside. Pt reports improvement of the chest tightness and improvement of the pain surrounding the port-a-cath site. Pt reports no leg pain, SOB, fevers, chills, n/v , diarrhea, or urinary complaints. Objective - Vital Signs/Intake and Output Vital Signs (last 24 hours): Temp Pulse Resp BP Pulse Ox 98 F 67 20 103/65 96 01/15/18 23:35 01/15/18 23:35 01/15/18 23:35 01/15/18 23:35 01/15/18 23:35 Intake and Output: 01/15/18 01/16/18 18:59 06:59 Intake Total 2800 1120 Balance 2800 1120 - Medications Medications: Current Medications Escitalopram Oxalate (Lexapro) 20 mg PO DAILY [facility] Last Admin: 01/15/18 10:22 Dose: 20 mg Famotidine (Pepcid) 20 mg PO DAILY [facility] Last Admin: 01/15/18 10:21 Dose: 20 mg Heparin Sodium (Porcine) (Heparin) 5,000 units SC Q8 [facility] Last Admin: 01/16/18 05:31 Dose: 5,000 units Hydrochlorothiazide (Microzide) 12.5 mg PO DAILY [facility] Last Admin: 01/15/18 10:22 Dose: 12.5 mg Vancomycin/Sodium Chloride (Vancomycin 1 Gm/Ns 200 Ml) 1 gm in 200 mls @ 133.333 mls/hr IVPB Q12H [facility] PRN Reason: Protocol Stop: 01/20/18 06:01 Last Admin: 01/16/18 05:30 Dose: 133.333 mls/hr Sodium Chloride (Sodium Chloride 0.9%) 1,000 mls @ 100 mls/hr IV .Q10H [facility] Last Admin: 01/16/18 05:35 Dose: Not Given Piperacillin Sod/Tazobactam Sod (Zosyn 3.375 Gm Iv Premix) 3.375 gm in 50 mls @ 100 mls/hr IVPB Q8H [facility] PRN Reason: Protocol Last Admin: 01/16/18 02:16 Dose: 100 mls/hr Ibuprofen (Motrin Tab) 400 mg PO Q6H PRN PRN Reason: Fever >100.4 F Lisinopril (Zestril) 20 mg PO DAILY [facility] Last Admin: 01/15/18 10:21 Dose: 20 mg Rosuvastatin Calcium (Crestor) 10 mg PO HS [facility] Last Admin: 01/15/18 21:59 Dose: 10 mg Saccharomyces Boulardii (Florastor) 250 mg PO BID [facility] Last Admin: 01/15/18 17:50 Dose: 250 mg - Labs Labs: 01/15/18 06:47 01/15/18 06:47 - Constitutional Appears: Well, Non-toxic, No Acute Distress - Head Exam Head Exam: ATRAUMATIC, NORMAL INSPECTION - Eye Exam Eye Exam: EOMI, Normal appearance. absent: Scleral icterus - ENT Exam ENT Exam: Mucous Membranes Moist - Respiratory Exam Respiratory Exam: Clear to Ausculation Bilateral. absent: Rales, Rhonchi, Wheezes, Respiratory Distress - Cardiovascular Exam Cardiovascular Exam: RRR, +S1, +S2. absent: Murmur - GI/Abdominal Exam GI & Abdominal Exam: Soft, Normal Bowel Sounds. absent: Distended, Tenderness - Extremities Exam Extremities Exam: Normal Inspection. absent: Calf Tenderness, Joint Swelling, Pedal Edema, Tenderness - Back Exam Back Exam: NORMAL INSPECTION - Neurological Exam Neurological Exam: Alert, Awake, CN II-XII Intact, Oriented x3 Neuro motor strength exam: Left Upper Extremity: 5, Right Upper Extremity: 5, Left Lower Extremity: 5, Right Lower Extremity: 5 - Psychiatric Exam Psychiatric exam: Normal Affect, Normal Mood - Skin Skin Exam: Dry, Intact, Normal Color Assessment and Plan - Assessment and Plan (Free Text) Assessment: 67 yo Female with a PMH of R Invasive ductal ca, depression and HTN admitted on 01/14 for fevers and chill during medication infusion via port-a-cath at infusion center, blood cultures growing gram neg rods. Plan: SIRS (systemic inflammatory response syndrome) -On admission: tachycardic with elevated WBC - source of infection : Blood culture growing gram neg pili -WBC 17.3 w/ Left shift -ESR 63 -ProCalcitonin 24.15 up from 17 on admission -CRP 152.9 -Lactate 1.7 on admission -CXR: 8/1- mild pulmonary vasc congestion limited study due to body habitus -f/u blood, urine, wound cultures UA 01/14 neg -ID, Dr, Vitaliy Hernandes consulted help appreciated: r/o viral syndrome/drugfever/chemo induced fever -Sx Dr. Riojas consulted: help appreciated - in order to r/o infection of port ( recent placement on 12/20/17) -f/u CT chest,abd,pelvis - Medications: * NS@100CC/HR * Cefepime 2g in 100ml q8hrs * Florastor 250mg PO BID * Motrin 400mg PO Q6H PRN for fever>100.4 Chest Tightness D-Dimer: elevated 1522 f/u CT angio to r/o PE ANTIONE neg x3 EKG -NSR with nonspecific t wave changes neg x 3 Venous doppler neg for DVT Pericardial Effusion echo from 01/11: mild-mod pericardial effusion, EF 50% Dr. Galan cardiology consult help appreciated Invasive ductal carcinoma of right breast, stage 3 Dr Fox, Heme/Onc, consulted help appreciated : Pathology result (11/26/17): * Right invasive ductal carcinoma Grade 3 with right axilla lymph node Currently chemotherapy ( Started 12/26/17) -Left Port-a-cath placed 12/20/17 Hypertension controlled -lsinopril 20mg PO daily -HCTZ 12.5mg PO daily -low sodium diet Depression Escitalopram 20mg PO QD PPX GI: Pepcid 20mg PO QD DVT: Heparin 5,000 units SC Q8H, [facility] Heart Healthy Diet PT/OT <Anny Benedict V - Last Filed: 01/21/18 23:33> Objective - Vital Signs/Intake and Output Vital Signs (last 24 hours): Temp Pulse Resp BP Pulse Ox 98.7 F 90 20 108/62 95 01/21/18 15:05 01/21/18 16:00 01/21/18 15:05 01/21/18 15:05 01/21/18 15:05 - Medications Medications: Current Medications Escitalopram Oxalate (Lexapro) 20 mg PO DAILY [facility] Last Admin: 01/21/18 09:17 Dose: 20 mg Famotidine (Pepcid) 20 mg PO DAILY [facility] Last Admin: 01/21/18 09:17 Dose: 20 mg Heparin Sodium (Porcine) (Heparin) 5,000 units SC Q8 [facility] Stop: 01/22/18 23:59 Last Admin: 01/21/18 22:04 Dose: 5,000 units Hydrochlorothiazide (Microzide) 12.5 mg PO DAILY [facility] Last Admin: 01/21/18 09:17 Dose: Not Given Ibuprofen (Motrin Tab) 400 mg PO Q6H PRN PRN Reason: Pain, Mild (1-3) Lisinopril (Zestril) 20 mg PO DAILY [facility] Last Admin: 01/21/18 09:17 Dose: Not Given Rosuvastatin Calcium (Crestor) 10 mg PO HS [facility] Last Admin: 01/21/18 22:03 Dose: 10 mg Saccharomyces Boulardii (Florastor) 250 mg PO BID [facility] Last Admin: 01/21/18 17:31 Dose: 250 mg - Labs Labs: 01/21/18 08:27 01/21/18 08:27 PT 12.4 SECONDS (9.7-12.2) H 01/20/18 06:38 INR 1.1 01/20/18 06:38 APTT 32 SECONDS (21-34) 01/20/18 06:38 Attending/Attestation - Attestation I have personally seen and examined this patient.: Yes I have fully participated in the care of the patient.: Yes I have reviewed all pertinent clinical information, including history, physical exam and plan: Yes Notes (Text): This is late computer entry for 01/16/18. Patient seen, examined and case discussed with day-time resident. Antibiotics changed by ID. Will continue IV abx. (1) SIRS (systemic inflammatory response syndrome) Assessment and Plan: * Criteria: leukocytosis, tachycardia source unclear if its related to port of cath or note * Risk: breast cancer on chemo, immunocomprised * Infectious Disease (Dr. Hernandes) on board-->help appreciated * Antibiotics: * Maxpimine 2gm IVPB Q8H (active since 01/16/18) * Florastor 250mg PO BID * Infectious Disease (Dr. Hernandes) on board-->help appreciated * 01/14/18 Blood culture: f/u * 01/14/18: Blood culture: f/u * 01/14/18: Wound culture: f/u * General surgery (Dr. Riojas) on the case-->to assess the port for possible infection. * Procalcitonin: 24.15 (01/15/18) * Imaging: * CT Abdomen/pelvis (01/15/18): no acute abdominal or pelvic abnormality. Mild hepatomegaly and fatty liver. Small subcentimeter lesion in the left hepatic lobe is is too small to characterize. Sigmoid diverticulsosi without CT evidence of acute diverticulitis * CT angio (01/15/18): no Ct evidence of acute pulmonary embolism. Scattered pulmonary nodules. the largest subpleural nodule in the right upper lobve measures 1.7cm. Possible metastatic, but cannot ruled out septic embolic/fungal infections-->i spoke with patient as well did heme-oncology regarding nodules. Status: Acute (2) Invasive ductal carcinoma of right breast, stage 3 Assessment and Plan: * Heme-Oncologist (Dr. Terrazas) on board-->help appreciated * Pathology result (11/26/17): Right invasive ductal carcinoma Grade 3 with right axilla lymph node * Patient has had one chemotherapy session and witnessed chills when port was accessed at outpatient Status: Chronic (3) Hypertension Assessment and Plan: * HCTZ 12.5mg PO daily * Lisinopril 20mg PO daily * monitor vital signs Status: Chronic (4) Depression Assessment and Plan: * Lexapro 20mg PO daily Status: Chronic (5) Inspiratory pain Assessment and Plan: * D-dimer: elevated (given breast cancer hx) * CT angio (01/15/18): no Ct evidence of acute pulmonary embolism. Scattered pulmonary nodules. the largest subpleural nodule in the right upper lobve measures 1.7cm. Possible metastatic, but cannot ruled out septic embolic/fungal infections * Cardiac enzymes negative X3 * Venous doppler negative for DVT Status: Resolved (6) Abnormal echocardiogram Pericardial Effusion Assessment and Plan: * Risk factor: on chemotherapuetic (cardio side efects) * Cardiology (Dr. Galan) on the case-->help appreciated * Echocardiogram (01/11/18): left ventricle is normal size, mild concentric left ventricular hypertrophy. EF: 50-55%, left atrium is mildly dilated. mitral regurgitation is mild. elevated right atrial pressure. mild to moderater anterior/posterior percardial effusion * Recommend to repeat echo Status: Acute (7) Transaminitis Assessment and Plan: * possible acute phase reactant * Downtrending * CT Abdomen/pelvis (01/15/18): no acute abdominal or pelvic abnormality. Mild hepatomegaly and fatty liver. Small subcentimeter lesion in the left hepatic lobe is is too small to characterize. Sigmoid diverticulosis without CT evidence of acute diverticulitis Status: Acute (8) Lipid Disorder Assessment and Plan: * Crestor 10mg POqHS Status: Chronic (9) Prophylactic measure Assessment and Plan: * GI: Pepcid 20mg PO QDaily * heparin 5000 units subq8H * Florastor 250mg PO BID
[2018-01-16 07:23] LABS: BASO # 0.2 K/uL (0.0-0.2); BASO % 1.1 % (0.0-2.0); EOS % 0.2 % (0.0-4.0); HEMOGLOBIN 10.2 g/dL (11.0-16.0); LYMPH % 23.1 % (20.0-40.0); MEAN CELL VOLUME 90.8 fL (81.0-99.0); MEAN CORPUSCULAR HEMOGLOBIN 30.1 pg (27.0-31.0); MEAN CORPUSCULAR HGB CONC 33.2 g/dL (33.0-37.0); MEAN PLATELET VOLUME 7.8 fL (7.2-11.7); MONO # 1.8 K/uL (0.0-0.8); MONO % 10.1 % (0.0-10.0); NEUT # 11.3 K/uL (1.8-7.0); NEUT % 65.5 % (50.0-75.0); RBC 3.38 Mil/uL (3.80-5.20); RED CELL DISTRIBUTION WIDTH 13.6 % (11.5-14.5); WHITE BLOOD COUNT 17.3 K/uL (4.8-10.8)
[2018-01-16 07:38] LABS: ALB/GLOB RATIO 1.3 (1.0-2.1); ALBUMIN 3.6 g/dL (3.5-5.0); ALT/SGPT 124 U/L (9-52); AST/SGOT 61 U/L (14-36); BLOOD UREA NITROGEN 17 mg/dL (7-17); CALCIUM 9.4 mg/dl (8.6-10.4); GFR AFRICAN-AMERICAN > 60; GFR NON-AFRICAN AMERICAN > 60
--- NOTE | 2018-01-16 07:54 | CP.PCM.PN ---
Subjective - Date & Time of Evaluation Date of Evaluation: 01/16/18 Time of Evaluation: 07:00 - Subjective Subjective: General Surgery Progress note for Dr. Riojas Patient seen and examined this AM at bedside. She denies any pain, fevers, chills, SOB, chest pain. Area was redressed with 4x4s and medihoney for scar resolution this am. Objective - Vital Signs/Intake and Output Vital Signs (last 24 hours): Temp Pulse Resp BP Pulse Ox 98 F 63 20 103/65 96 01/15/18 23:35 01/16/18 04:12 01/15/18 23:35 01/15/18 23:35 01/15/18 23:35 Intake and Output: 01/16/18 01/16/18 06:59 18:59 Intake Total 1120 Balance 1120 - Medications Medications: Current Medications Escitalopram Oxalate (Lexapro) 20 mg PO DAILY [facility] Last Admin: 01/15/18 10:22 Dose: 20 mg Famotidine (Pepcid) 20 mg PO DAILY [facility] Last Admin: 01/15/18 10:21 Dose: 20 mg Heparin Sodium (Porcine) (Heparin) 5,000 units SC Q8 [facility] Last Admin: 01/16/18 05:31 Dose: 5,000 units Hydrochlorothiazide (Microzide) 12.5 mg PO DAILY [facility] Last Admin: 01/15/18 10:22 Dose: 12.5 mg Vancomycin/Sodium Chloride (Vancomycin 1 Gm/Ns 200 Ml) 1 gm in 200 mls @ 133.333 mls/hr IVPB Q12H [facility] PRN Reason: Protocol Stop: 01/20/18 06:01 Last Admin: 01/16/18 05:30 Dose: 133.333 mls/hr Sodium Chloride (Sodium Chloride 0.9%) 1,000 mls @ 100 mls/hr IV .Q10H [facility] Last Admin: 01/16/18 05:35 Dose: Not Given Piperacillin Sod/Tazobactam Sod (Zosyn 3.375 Gm Iv Premix) 3.375 gm in 50 mls @ 100 mls/hr IVPB Q8H [facility] PRN Reason: Protocol Last Admin: 01/16/18 02:16 Dose: 100 mls/hr Ibuprofen (Motrin Tab) 400 mg PO Q6H PRN PRN Reason: Fever >100.4 F Lisinopril (Zestril) 20 mg PO DAILY [facility] Last Admin: 01/15/18 10:21 Dose: 20 mg Rosuvastatin Calcium (Crestor) 10 mg PO HS [facility] Last Admin: 01/15/18 21:59 Dose: 10 mg Saccharomyces Boulardii (Florastor) 250 mg PO BID [facility] Last Admin: 01/15/18 17:50 Dose: 250 mg - Labs Labs: 01/16/18 06:56 01/16/18 06:56 - Constitutional Appears: Well, Non-toxic, No Acute Distress - Head Exam Head Exam: ATRAUMATIC, NORMOCEPHALIC - ENT Exam ENT Exam: Mucous Membranes Moist - Respiratory Exam Respiratory Exam: NORMAL BREATHING PATTERN - Cardiovascular Exam Cardiovascular Exam: +S1, +S2 - GI/Abdominal Exam GI & Abdominal Exam: Distended, Soft. absent: Tenderness - Extremities Exam Extremities Exam: absent: Calf Tenderness, Pedal Edema - Neurological Exam Neurological Exam: Alert, Awake, Oriented x3 - Psychiatric Exam Psychiatric exam: Normal Affect, Normal Mood - Skin Skin Exam: Dry, Intact, Normal Color, Warm Assessment and Plan - Assessment and Plan (Free Text) Assessment: 67 yr old female with recent chemotherapy port placement and possible infection of the port Plan: -f/u blood culture for definitive abx therapy - medialon and 4x4 dressing placed today for improved scab resolution - d/w plan Dr. Riojas, all further recs per her Emy Barragan, PGY 1
[2018-01-16] MEDS: Saccharomyces Boulardi 250 mg Cap PO SCH ×2 (09:23→17:14)
--- NOTE | 2018-01-16 12:01 | CP.PCM.PN ---
Subjective - Date & Time of Evaluation Date of Evaluation: 01/16/18 Time of Evaluation: 12:00 - Subjective Subjective: CHIEF COMPLAINTS TODAY : temperature trending down. VSS feeling better ROS. HEENT : N. Resp : No cough, wheezing ,pleuritic CP ,or hemoptysis Cardio : No anginal CP, PND, orthopnea, palpitation GI : No abd.pain, n/v ,diarrhea or GI bleeding . 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 Musculoskel : No joint swelling , Derm : No rash Psych : Normal affect. Ext : No swelling ,calf pain PE. Pt. is alert awake in no distress. V.S As noted in the chart Head ,ear nose,throat and eyes : Normal. Neck : Supple with normal carotids. Lungs: Clear air entry. Heart : S1 & S2 normal with S4. No murmur. Abd : Soft non tender with normal bowel sounds. Neuro : Moves all ext. with no localized deficit. Ext : No edema with intact pulses.Non tender calves Derm : No rashes or decubitus ulcer. RT. BREAST-SOME INDURATION AROUND AREOLA, NO CELLULITIS .LT. CHEST WALL, MILD TENDERNESS ON PALPATION LEFT pORT-a-cATH. LABS/RADIOLOGY: V.DUPLEX B/L -VE DVT . B/L VALVULAR INCOMPETANCE (see full report ) d-dimer 1522 high WBC25.2. Creatinine 0.6. Pro-calcitonin high. BLOOD CULTURES- GRAM-VE RODS. Objective - Vital Signs/Intake and Output Vital Signs (last 24 hours): Temp Pulse Resp BP Pulse Ox 97.6 F 65 20 109/61 96 01/16/18 07:15 01/16/18 07:15 01/16/18 07:15 01/16/18 07:15 01/16/18 07:15 Intake and Output: 01/16/18 01/16/18 06:59 18:59 Intake Total 1120 Balance 1120 - Medications Medications: Current Medications Escitalopram Oxalate (Lexapro) 20 mg PO DAILY [facility] Last Admin: 01/16/18 09:22 Dose: 20 mg Famotidine (Pepcid) 20 mg PO DAILY [facility] Last Admin: 01/16/18 09:21 Dose: 20 mg Heparin Sodium (Porcine) (Heparin) 5,000 units SC Q8 [facility] Last Admin: 01/16/18 05:31 Dose: 5,000 units Hydrochlorothiazide (Microzide) 12.5 mg PO DAILY [facility] Last Admin: 01/16/18 09:22 Dose: 12.5 mg Sodium Chloride (Sodium Chloride 0.9%) 1,000 mls @ 100 mls/hr IV .Q10H [facility] Last Admin: 01/16/18 05:35 Dose: Not Given Cefepime HCl (Maxipime Iv 2 Gm Premix) 2 gm in 100 mls @ 200 mls/hr IVPB Q8H [facility] PRN Reason: Protocol Stop: 01/21/18 13:01 Ibuprofen (Motrin Tab) 400 mg PO Q6H PRN PRN Reason: Fever >100.4 F Lisinopril (Zestril) 20 mg PO DAILY [facility] Last Admin: 01/16/18 09:22 Dose: 20 mg Rosuvastatin Calcium (Crestor) 10 mg PO HS [facility] Last Admin: 01/15/18 21:59 Dose: 10 mg Saccharomyces Boulardii (Florastor) 250 mg PO BID [facility] Last Admin: 01/16/18 09:23 Dose: 250 mg - Labs Labs: 01/16/18 06:56 01/16/18 06:56 Assessment and Plan (1) Sepsis Assessment & Plan: BLOOD CULTURES -GRAM-VE RODS WOUND CULTURE LEFT pORT-a-cATH SITE.--P DC iv VANCOMYCIN 1 G EVERY 12 HOURLY 01/14/18. DC iv zOSYN 3.375 EVERY 8 HOURLY. 01/14/18 START IV CEFEPIME 2GR IVPB Q 8HRLY FOR GN SEPSIS 01/16/18 F/U CULTURES TO ADJUST ABX 2-d ECHO R/O PERICARDIAL EFFUSION P (2) Leukocytosis (leucocytosis) Status: Acute (3) Carcinoma of breast, stage 3 Status: Acute (4) Hypertension Status: Acute
[2018-01-16] MEDS: Cefepime IV 2 gm in Dextrose 2 GM/100 ML BAG IVPB SCH ×2 (13:28→21:19)
--- NOTE | 2018-01-16 13:30 | VASCLAB ---
Date of service: 01/15/2018 PROCEDURE: Lower Extremity Venous Duplex Exam. HISTORY: Pain in limb. PRIORS: None. TECHNIQUE: Bilateral common femoral, femoral, popliteal and posterior tibial, peroneal and great saphenous veins were evaluated. Flow was assessed with color Doppler, compressibility, assessment of phasic flow and augmentation response. Report prepared by Jaziel Lopez, BS, RVT FINDINGS: RIGHT: 1. Common Femoral Vein: 1.1. Compressibility - Fully compressible: Thrombus - None : Flow - Phasic: Augmentation -Normal: Reflux - None. 2. Femoral Vein: 2.1. Compressibility - Fully compressible: Thrombus - None : Flow - Phasic: Augmentation -Normal: Reflux - None. 3. Popliteal Vein: 3.1. Compressibility - Fully compressible: Thrombus - None : Flow - Phasic: Augmentation -Normal: Reflux - Severe. 4. Posterior Tibial Vein: 4.1. Compressibility - Fully compressible: Thrombus - None: Flow - Phasic: Augmentation -Normal: Reflux - None. 5. Peroneal Vein: 5.1. Compressibility - Fully compressible: Thrombus - None: Flow - Phasic: Augmentation -Normal: Reflux - None. 6. Great Saphenous Vein: 6.1. Compressibility - Fully compressible: Thrombus - None: Flow - Phasic: Augmentation - Normal: Reflux - Severe. LEFT: 1. Common Femoral Vein: 1.1. Compressibility - Fully compressible: Thrombus - None: Flow - Phasic: Augmentation -Normal: Reflux - None. 2. Femoral Vein: 2.1. Compressibility - Fully compressible: Thrombus - None: Flow - Phasic: Augmentation -Normal: Reflux - None. 3. Popliteal Vein: 3.1. Compressibility - Fully compressible: Thrombus - None : Flow - Phasic: Augmentation -Normal: Reflux - None. 4. Posterior Tibial Vein: 4.1. Compressibility - Fully compressible: Thrombus - None: Flow - Phasic: Augmentation -Normal: Reflux - None. 5. Peroneal Vein: 5.1. Compressibility - Fully compressible: Thrombus - None: Flow - Phasic: Augmentation -Normal: Reflux - Severe. 6. Great Saphenous Vein: 6.1. Compressibility - Fully compressible: Thrombus - None: Flow - Phasic: Augmentation - Normal: Reflux - None. OTHER FINDINGS: Right: None significant. Left: None significant. IMPRESSION: Right: No evidence of deep or superficial vein thrombosis of the right lower extremity. Severe valvular incompetence of the right popliteal and greater saphenous veins. Left: No evidence of deep or superficial vein thrombosis of the left lower extremity. Severe valvular incompetence of the left peroneal vein.
--- NOTE | 2018-01-16 21:36 | CARD ---
APPROVED REPORT Date of service: 01/14/2018 EKG Measurement Heart [id number] <Conclusion> Normal sinus rhythm Possible Anterior infarct, age undetermined Abnormal ECG
--- NOTE | 2018-01-16 23:52 | CP.PCM.PN ---
Subjective - Date & Time of Evaluation Date of Evaluation: 01/16/18 Time of Evaluation: 08:20 - Subjective Subjective: Patient seen and evaluated Denies chest pain and dyspnea Awaiting ECHO to assess pericardial effusion Objective - Vital Signs/Intake and Output Vital Signs (last 24 hours): Temp Pulse Resp BP Pulse Ox 97.4 F L 69 20 128/76 97 01/16/18 15:18 01/16/18 16:00 01/16/18 15:18 01/16/18 15:18 01/16/18 15:18 Intake and Output: 01/16/18 01/17/18 18:59 06:59 Intake Total 1120 Balance 1120 - Medications Medications: Current Medications Escitalopram Oxalate (Lexapro) 20 mg PO DAILY [facility] Last Admin: 01/16/18 09:22 Dose: 20 mg Famotidine (Pepcid) 20 mg PO DAILY [facility] Last Admin: 01/16/18 09:21 Dose: 20 mg Heparin Sodium (Porcine) (Heparin) 5,000 units SC Q8 [facility] Last Admin: 01/16/18 21:19 Dose: 5,000 units Hydrochlorothiazide (Microzide) 12.5 mg PO DAILY [facility] Last Admin: 01/16/18 09:22 Dose: 12.5 mg Sodium Chloride (Sodium Chloride 0.9%) 1,000 mls @ 100 mls/hr IV .Q10H [facility] Last Admin: 01/16/18 14:37 Dose: Not Given Cefepime HCl (Maxipime Iv 2 Gm Premix) 2 gm in 100 mls @ 200 mls/hr IVPB Q8H [facility] PRN Reason: Protocol Stop: 01/21/18 13:01 Last Admin: 01/16/18 21:19 Dose: 200 mls/hr Ibuprofen (Motrin Tab) 400 mg PO Q6H PRN PRN Reason: Fever >100.4 F Lisinopril (Zestril) 20 mg PO DAILY [facility] Last Admin: 01/16/18 09:22 Dose: 20 mg Rosuvastatin Calcium (Crestor) 10 mg PO HS [facility] Last Admin: 01/16/18 21:19 Dose: 10 mg Saccharomyces Boulardii (Florastor) 250 mg PO BID [facility] Last Admin: 01/16/18 17:14 Dose: 250 mg - Labs Labs: 01/16/18 06:56 01/16/18 06:56
[2018-01-17] MEDS: Sodium Chloride 0.9% 1,000 ML IV SCH ×4 (01:00→18:24)
[2018-01-17] MEDS: Cefepime IV 2 gm in Dextrose 2 GM/100 ML BAG IVPB SCH ×3 (04:31→21:10)
[2018-01-17 07:44] LABS: BASO # 0.1 K/uL (0.0-0.2); BASO % 0.5 % (0.0-2.0); EOS # 0.1 K/uL (0.0-0.7); EOS % 0.7 % (0.0-4.0); HEMOGLOBIN 10.8 g/dL (11.0-16.0); LYMPH # 3.2 K/uL (1.0-4.3); LYMPH % 24.4 % (20.0-40.0); MEAN CELL VOLUME 91.5 fL (81.0-99.0); MEAN CORPUSCULAR HEMOGLOBIN 31.2 pg (27.0-31.0); MEAN CORPUSCULAR HGB CONC 34.1 g/dL (33.0-37.0); MEAN PLATELET VOLUME 7.4 fL (7.2-11.7); MONO # 1.5 K/uL (0.0-0.8); MONO % 11.7 % (0.0-10.0); NEUT # 8.2 K/uL (1.8-7.0); NEUT % 62.7 % (50.0-75.0); NRBC % 0.1 % (0.0-2.0); RBC 3.46 Mil/uL (3.80-5.20); RED CELL DISTRIBUTION WIDTH 13.4 % (11.5-14.5)
[2018-01-17 07:56] LABS: ALB/GLOB RATIO 1.3 (1.0-2.1); ALBUMIN 3.8 g/dL (3.5-5.0); ALT/SGPT 101 U/L (9-52); AST/SGOT 39 U/L (14-36); BLOOD UREA NITROGEN 13 mg/dL (7-17); CALCIUM 9.6 mg/dl (8.6-10.4); GFR AFRICAN-AMERICAN > 60; GFR NON-AFRICAN AMERICAN > 60
--- NOTE | 2018-01-17 08:38 | CP.PCM.PN ---
Subjective - Date & Time of Evaluation Date of Evaluation: 01/17/18 Time of Evaluation: 08:41 - Subjective Subjective: General Surgery Progress Note for Dr. Riojas Patient seen and examined at bedside this morning in no acute distress. Area was redressed with 4x4 and medihoney. Encouraged to start walking more. She denies any pain, fevers, chills, CP, SOB, n/v/c/d. Objective - Vital Signs/Intake and Output Vital Signs (last 24 hours): Temp Pulse Resp BP Pulse Ox 98.2 F 78 18 125/68 96 01/17/18 07:00 01/17/18 08:00 01/17/18 07:00 01/17/18 07:00 01/17/18 07:00 Intake and Output: 01/17/18 01/17/18 06:59 18:59 Intake Total 1120 Balance 1120 - Medications Medications: Current Medications Escitalopram Oxalate (Lexapro) 20 mg PO DAILY [facility] Last Admin: 01/16/18 09:22 Dose: 20 mg Famotidine (Pepcid) 20 mg PO DAILY [facility] Last Admin: 01/16/18 09:21 Dose: 20 mg Heparin Sodium (Porcine) (Heparin) 5,000 units SC Q8 [facility] Last Admin: 01/17/18 05:38 Dose: 5,000 units Hydrochlorothiazide (Microzide) 12.5 mg PO DAILY [facility] Last Admin: 01/16/18 09:22 Dose: 12.5 mg Sodium Chloride (Sodium Chloride 0.9%) 1,000 mls @ 100 mls/hr IV .Q10H [facility] Last Admin: 01/17/18 06:08 Dose: 100 mls/hr Cefepime HCl (Maxipime Iv 2 Gm Premix) 2 gm in 100 mls @ 200 mls/hr IVPB Q8H [facility] PRN Reason: Protocol Stop: 01/21/18 13:01 Last Admin: 01/17/18 04:31 Dose: 200 mls/hr Ibuprofen (Motrin Tab) 400 mg PO Q6H PRN PRN Reason: Fever >100.4 F Lisinopril (Zestril) 20 mg PO DAILY [facility] Last Admin: 01/16/18 09:22 Dose: 20 mg Rosuvastatin Calcium (Crestor) 10 mg PO HS [facility] Last Admin: 01/16/18 21:19 Dose: 10 mg Saccharomyces Boulardii (Florastor) 250 mg PO BID [facility] Last Admin: 01/16/18 17:14 Dose: 250 mg - Labs Labs: 01/17/18 07:35 01/17/18 07:35 - Constitutional Appears: Non-toxic, No Acute Distress - Head Exam Head Exam: ATRAUMATIC, NORMOCEPHALIC - Eye Exam Eye Exam: EOMI, Normal appearance - ENT Exam ENT Exam: Mucous Membranes Moist, Normal Exam - Respiratory Exam Respiratory Exam: Clear to Ausculation Bilateral, NORMAL BREATHING PATTERN. absent: Rales, Rhonchi, Wheezes - Cardiovascular Exam Cardiovascular Exam: REGULAR RHYTHM, +S1, +S2. absent: Murmur - GI/Abdominal Exam GI & Abdominal Exam: Soft, Normal Bowel Sounds. absent: Tenderness - Extremities Exam Additional comments: IV left arm - Neurological Exam Neurological Exam: Alert, Awake, Oriented x3 - Skin Additional comments: port site non edematous, non erythematous. no tenderness to palpation Assessment and Plan - Assessment and Plan (Free Text) Plan: Assessment: 67 yr old female with recent chemotherapy port placement and possible infection of the port Plan: - wound culture negative - f/u blood culture for definitive abx therapy, prelim read gram negative pili - repeat blood culture from port ordered and collected, f/u - vanc/zosyn switched to cefepime per [facility] mcgrath and 4x4 dressing placed today for improved scab resolution - further recs per Dr. Shine Jacome PGY 1
[2018-01-17] MEDS: Saccharomyces Boulardi 250 mg Cap PO SCH ×2 (09:14→18:11)
--- NOTE | 2018-01-17 13:05 | CP.PCM.PN ---
<Mare Gomez - Last Filed: 01/17/18 13:14> Subjective - Date & Time of Evaluation Date of Evaluation: 01/17/18 Time of Evaluation: 13:04 - Subjective Subjective: Cardiology Progress Note - Dr Galan Patient seen and examined at bedside. Per nursing no acute events overnight. Patient is doing well, offers no complaints at this time. Denies any chest pain , palpitations, dyspnea. Objective - Vital Signs/Intake and Output Vital Signs (last 24 hours): Temp Pulse Resp BP Pulse Ox 98.2 F 88 18 124/68 96 01/17/18 07:00 01/17/18 09:13 01/17/18 07:00 01/17/18 09:13 01/17/18 07:00 Intake and Output: 01/17/18 01/17/18 06:59 18:59 Intake Total 1120 Balance 1120 - Medications Medications: Current Medications Escitalopram Oxalate (Lexapro) 20 mg PO DAILY [facility] Last Admin: 01/17/18 09:14 Dose: 20 mg Famotidine (Pepcid) 20 mg PO DAILY [facility] Last Admin: 01/17/18 09:14 Dose: 20 mg Heparin Sodium (Porcine) (Heparin) 5,000 units SC Q8 [facility] Last Admin: 01/17/18 05:38 Dose: 5,000 units Hydrochlorothiazide (Microzide) 12.5 mg PO DAILY [facility] Last Admin: 01/17/18 09:14 Dose: 12.5 mg Sodium Chloride (Sodium Chloride 0.9%) 1,000 mls @ 100 mls/hr IV .Q10H [facility] Last Admin: 01/17/18 06:08 Dose: 100 mls/hr Cefepime HCl (Maxipime Iv 2 Gm Premix) 2 gm in 100 mls @ 200 mls/hr IVPB Q8H [facility] PRN Reason: Protocol Stop: 01/21/18 13:01 Last Admin: 01/17/18 12:37 Dose: 200 mls/hr Ibuprofen (Motrin Tab) 400 mg PO Q6H PRN PRN Reason: Fever >100.4 F Lisinopril (Zestril) 20 mg PO DAILY [facility] Last Admin: 01/17/18 09:14 Dose: 20 mg Rosuvastatin Calcium (Crestor) 10 mg PO HS [facility] Last Admin: 01/16/18 21:19 Dose: 10 mg Saccharomyces Boulardii (Florastor) 250 mg PO BID [facility] Last Admin: 01/17/18 09:14 Dose: 250 mg - Labs Labs: 01/17/18 07:35 01/17/18 07:35 - Additional Findings Additional findings: - Constitutional Appears: Non-toxic, No Acute Distress - Head Exam Head Exam: ATRAUMATIC, NORMOCEPHALIC - Eye Exam Eye Exam: EOMI, Normal appearance - ENT Exam ENT Exam: Mucous Membranes Moist, Normal Exam - Respiratory Exam Respiratory Exam: Clear to Ausculation Bilateral, NORMAL BREATHING PATTERN. absent: Rales, Rhonchi, Wheezes - Cardiovascular Exam Cardiovascular Exam: REGULAR RHYTHM, +S1, +S2. absent: Murmur - GI/Abdominal Exam GI & Abdominal Exam: Soft, Normal Bowel Sounds. absent: Tenderness - Neurological Exam Neurological Exam: Alert, Awake, Oriented x3 Assessment and Plan - Assessment and Plan (Free Text) Assessment: A/P: Patient is a 67 year old female PMH right invasive ductal carcinoma, hypertension, depression who comes to [facility] after experiencing chills and rigor at chemotherapy. Her left subclavian portacath was placed on 12/20/17, and she started chemotherapy on [place], 01/09/18. Her first session of chemo was uneventful. It was toward the end of her second chemotherapy session which she developed chills, fever, and rigor. Pericardial effusion -Stable, afebrile -Troponins negative x 3 -ECHO reviewed Normal EF 01/10/18), Small effusion -Repeat ECHO showed stable small pericardial effusion -Will continue to monitor -Plan discussed with Dr Galan Hypertension -Continue Lisinopril 20mg PO daily -Continue HCTZ 12.5mg PO daily Gram negative bacteremia -Patient with one positive blood culture from admission -Continue antibiotics, ID on consult -F/U repeat blood cultures -CT abd/pelvis diverticulosis with evidence of diverticulitis (see full report) -CT chest showed scatted pulmonary nodules (see full report) Mare Gomez DO PGY -2 <Garret Galan - Last Filed: 01/18/18 07:36> Objective - Vital Signs/Intake and Output Vital Signs (last 24 hours): Temp Pulse Resp BP Pulse Ox 99.5 F 86 20 111/65 95 01/18/18 04:00 01/18/18 04:00 08/04/18 04:00 01/18/18 04:00 01/18/18 04:00 - Medications Medications: Current Medications Escitalopram Oxalate (Lexapro) 20 mg PO DAILY [facility] Last Admin: 01/17/18 09:14 Dose: 20 mg Famotidine (Pepcid) 20 mg PO DAILY [facility] Last Admin: 01/17/18 09:14 Dose: 20 mg Hydrochlorothiazide (Microzide) 12.5 mg PO DAILY [facility] Last Admin: 01/17/18 09:14 Dose: 12.5 mg Cefepime HCl (Maxipime Iv 2 Gm Premix) 2 gm in 100 mls @ 200 mls/hr IVPB Q8H [facility] PRN Reason: Protocol Stop: 01/21/18 13:01 Last Admin: 01/18/18 05:10 Dose: 200 mls/hr Ibuprofen (Motrin Tab) 400 mg PO Q6H PRN PRN Reason: Fever >100.4 F Lisinopril (Zestril) 20 mg PO DAILY [facility] Last Admin: 01/17/18 09:14 Dose: 20 mg Rosuvastatin Calcium (Crestor) 10 mg PO HS [facility] Last Admin: 01/16/18 21:19 Dose: 10 mg Saccharomyces Boulardii (Florastor) 250 mg PO BID [facility] Last Admin: 01/17/18 18:11 Dose: 250 mg - Labs Labs: 01/17/18 07:35 01/17/18 07:35 Assessment and Plan - Assessment and Plan (Free Text) Assessment: Patient seen and evaluated personally by nv Plan of care d/w the medical sales representative and as documented
--- NOTE | 2018-01-17 16:04 | CP.PCM.PN ---
Subjective - Date & Time of Evaluation Date of Evaluation: 01/16/18 Time of Evaluation: 15:58 - Subjective Subjective: The patient is feeling ok, without complaints. Remains afebrile, no discharge from surgical site. Objective - Vital Signs/Intake and Output Vital Signs (last 24 hours): Temp Pulse Resp BP Pulse Ox 98.2 F 82 18 124/68 96 01/17/18 07:00 01/17/18 15:53 01/17/18 07:00 01/17/18 09:13 01/17/18 07:00 Intake and Output: 01/17/18 01/17/18 06:59 18:59 Intake Total 1120 1200 Balance 1120 1200 - Medications Medications: Current Medications Escitalopram Oxalate (Lexapro) 20 mg PO DAILY [facility] Last Admin: 01/17/18 09:14 Dose: 20 mg Famotidine (Pepcid) 20 mg PO DAILY [facility] Last Admin: 01/17/18 09:14 Dose: 20 mg Heparin Sodium (Porcine) (Heparin) 5,000 units SC Q8 [facility] Last Admin: 01/17/18 14:04 Dose: 5,000 units Hydrochlorothiazide (Microzide) 12.5 mg PO DAILY [facility] Last Admin: 01/17/18 09:14 Dose: 12.5 mg Sodium Chloride (Sodium Chloride 0.9%) 1,000 mls @ 100 mls/hr IV .Q10H [facility] Last Admin: 01/17/18 12:00 Dose: Not Given Cefepime HCl (Maxipime Iv 2 Gm Premix) 2 gm in 100 mls @ 200 mls/hr IVPB Q8H [facility] PRN Reason: Protocol Stop: 01/21/18 13:01 Last Admin: 01/17/18 12:37 Dose: 200 mls/hr Ibuprofen (Motrin Tab) 400 mg PO Q6H PRN PRN Reason: Fever >100.4 F Lisinopril (Zestril) 20 mg PO DAILY [facility] Last Admin: 01/17/18 09:14 Dose: 20 mg Rosuvastatin Calcium (Crestor) 10 mg PO HS [facility] Last Admin: 01/16/18 21:19 Dose: 10 mg Saccharomyces Boulardii (Florastor) 250 mg PO BID [facility] Last Admin: 01/17/18 09:14 Dose: 250 mg - Labs Labs: 01/17/18 07:35 01/17/18 07:35 Assessment and Plan (1) Breast cancer Assessment & Plan: Invasive ductal cancer, clinical stage II, with gram negative bacteremia, ? source, on antibiotics as per ID. Will need to address concerns about lung nodules and ??infection in portacath. Repeat CAT scan next week, will discuss with ID as well regarding duration of antibiotics once id of bacteria back Status: Acute
--- NOTE | 2018-01-17 18:09 | CARD ---
APPROVED REPORT Date of service: 01/16/2018 EXAM: LIMITED Two-dimensional. Other Information Quality : LimitedRhythm : INDICATION Pericardial Effusion Infection:Rule out subacute bacterial endocarditis <Conclusion> Small pericardial effusion. No definite vegetation seen, consider CHITO if clinically indicated.
--- NOTE | 2018-01-17 18:48 | CP.PCM.PN ---
Subjective - Date & Time of Evaluation Date of Evaluation: 01/17/18 Time of Evaluation: 18:48 - Subjective Subjective: CHIEF COMPLAINTS TODAY : temperature trending down. VSS C/O INTERMITTENT CHILLS THIS AFTERNOON. ROS. HEENT : N. Resp : No cough, wheezing ,pleuritic CP ,or hemoptysis Cardio : No anginal CP, PND, orthopnea, palpitation GI : No abd.pain, n/v ,diarrhea or GI bleeding . MEDICAL LABORATORY TECHNICIAN : No headache, vertigo, focal deficit. Musculoskel : No joint swelling , Derm : No rash Psych : Normal affect. Ext : No swelling ,calf pain PE. Pt. is alert awake in no distress. V.S As noted in the chart Head ,ear nose,throat and eyes : Normal. Neck : Supple with normal carotids. Lungs: Clear air entry. Heart : S1 & S2 normal with S4. No murmur. Abd : Soft non tender with normal bowel sounds. Neuro : Moves all ext. with no localized deficit. Ext : No edema with intact pulses.Non tender calves Derm : No rashes or decubitus ulcer. RT. BREAST-SOME INDURATION AROUND AREOLA, NO CELLULITIS .LT. CHEST WALL, MILD TENDERNESS ON PALPATION LEFT pORT-a-cATH. LABS/RADIOLOGY: 2D ECHO; small pericardial effusion, no definite vegetations seen.CHITO RECOMMENDED. LT JUNG-CATH SITE CULTURE -VE V.DUPLEX B/L -VE DVT . B/L VALVULAR INCOMPETANCE (see full report ) d-dimer 1522 high WBCIMPROVING. Creatinine 0.6. Pro-calcitonin high. BLOOD CULTURES- 01/14/18 1:2 SETS GRAM-VE RODS. Objective - Vital Signs/Intake and Output Vital Signs (last 24 hours): Temp Pulse Resp BP Pulse Ox 99.9 F H 85 20 136/79 96 01/17/18 15:02 01/17/18 16:00 01/17/18 15:02 01/17/18 15:02 01/17/18 15:02 Intake and Output: 01/17/18 01/17/18 06:59 18:59 Intake Total 1120 1200 Balance 1120 1200 - Medications Medications: Current Medications Escitalopram Oxalate (Lexapro) 20 mg PO DAILY [facility] Last Admin: 01/17/18 09:14 Dose: 20 mg Famotidine (Pepcid) 20 mg PO DAILY [facility] Last Admin: 01/17/18 09:14 Dose: 20 mg Heparin Sodium (Porcine) (Heparin) 5,000 units SC Q8 [facility] Last Admin: 01/17/18 14:04 Dose: 5,000 units Hydrochlorothiazide (Microzide) 12.5 mg PO DAILY [facility] Last Admin: 01/17/18 09:14 Dose: 12.5 mg Sodium Chloride (Sodium Chloride 0.9%) 1,000 mls @ 100 mls/hr IV .Q10H [facility] Last Admin: 01/17/18 18:24 Dose: 100 mls/hr Cefepime HCl (Maxipime Iv 2 Gm Premix) 2 gm in 100 mls @ 200 mls/hr IVPB Q8H [facility] PRN Reason: Protocol Stop: 01/21/18 13:01 Last Admin: 01/17/18 12:37 Dose: 200 mls/hr Ibuprofen (Motrin Tab) 400 mg PO Q6H PRN PRN Reason: Fever >100.4 F Lisinopril (Zestril) 20 mg PO DAILY [facility] Last Admin: 01/17/18 09:14 Dose: 20 mg Rosuvastatin Calcium (Crestor) 10 mg PO HS [facility] Last Admin: 01/16/18 21:19 Dose: 10 mg Saccharomyces Boulardii (Florastor) 250 mg PO BID [facility] Last Admin: 01/17/18 18:11 Dose: 250 mg - Labs Labs: 01/17/18 07:35 01/17/18 07:35 Assessment and Plan (1) Gram negative sepsis Assessment & Plan: BLOOD CULTURES GRAM-NEGATIVE RODS 01/14/18 fOLLOW-UP IDENTIFICATION AND SENSITIVITY. cONTINUE iv ANTIBIOTICS. Status: Acute (2) Leukocytosis (leucocytosis) Assessment & Plan: GRAM-NEGATIVE SEPSIS +VE BLOOD CULTURE SOURCE OF SEPSIS NOT CLEAR ? CRBSI R/O SBE. PATIENT STILL COMPLAINS OF INTERMITTENT CHILLS ? TRANSIENT BREAKTHROUGH BACTEREMIA. CASE DISCUSSED WITH HOSPITALIST/ONCOLOGIST. PATIENT WILL NEED CHITO . FOLLOW-UP REPEAT BLOOD CULTURES ONE THROUGH pORT-a-cATH/AND ONE PERIPHERAL DONE TODAY REPORTED BY DR. GARCIA CONTINUE iv CEFEPIME 2 G EVERY 8 HOURLY FOR NOW. aWAIT CULTURES TO ADJUST ANTIBIOTICS. Status: Acute (3) Carcinoma of breast, stage 3 Assessment & Plan: patient on chemotherapy. Status: Deleted (4) Hypertension Status: Acute
--- NOTE | 2018-01-17 19:40 | CP.PCM.PN ---
<Bahman Gorman - Last Filed: 01/17/18 19:42> Subjective - Date & Time of Evaluation Date of Evaluation: 01/17/18 Time of Evaluation: 19:37 - Subjective Subjective: Pt seen and examined at bedside. Pt reports feeling better since yesterday. Pt denies chest pain, SOB, calf pain, swelling, n/v, fevers, chills or night sweats. Pt reports improvement of the port a cath site pain. Objective - Vital Signs/Intake and Output Vital Signs (last 24 hours): Temp Pulse Resp BP Pulse Ox 99.9 F H 85 20 136/79 96 01/17/18 15:02 01/17/18 16:00 01/17/18 15:02 01/17/18 15:02 01/17/18 15:02 Intake and Output: 01/17/18 01/18/18 18:59 06:59 Intake Total 1200 Balance 1200 - Medications Medications: Current Medications Escitalopram Oxalate (Lexapro) 20 mg PO DAILY [facility] Last Admin: 01/17/18 09:14 Dose: 20 mg Famotidine (Pepcid) 20 mg PO DAILY [facility] Last Admin: 01/17/18 09:14 Dose: 20 mg Heparin Sodium (Porcine) (Heparin) 5,000 units SC Q8 [facility] Last Admin: 01/17/18 14:04 Dose: 5,000 units Hydrochlorothiazide (Microzide) 12.5 mg PO DAILY [facility] Last Admin: 01/17/18 09:14 Dose: 12.5 mg Sodium Chloride (Sodium Chloride 0.9%) 1,000 mls @ 100 mls/hr IV .Q10H [facility] Last Admin: 01/17/18 18:24 Dose: 100 mls/hr Cefepime HCl (Maxipime Iv 2 Gm Premix) 2 gm in 100 mls @ 200 mls/hr IVPB Q8H [facility] PRN Reason: Protocol Stop: 01/21/18 13:01 Last Admin: 01/17/18 12:37 Dose: 200 mls/hr Ibuprofen (Motrin Tab) 400 mg PO Q6H PRN PRN Reason: Fever >100.4 F Lisinopril (Zestril) 20 mg PO DAILY [facility] Last Admin: 01/17/18 09:14 Dose: 20 mg Rosuvastatin Calcium (Crestor) 10 mg PO HS [facility] Last Admin: 01/16/18 21:19 Dose: 10 mg Saccharomyces Boulardii (Florastor) 250 mg PO BID [facility] Last Admin: 01/17/18 18:11 Dose: 250 mg - Labs Labs: 01/17/18 07:35 01/17/18 07:35 Assessment and Plan - Assessment and Plan (Free Text) Assessment: 67 yo Female with a PMH of R Invasive ductal ca, depression and HTN admitted on 01/14 for fevers and chill during medication infusion via port-a-cath at infusion center, blood cultures growing gram neg rods. Plan: SIRS (systemic inflammatory response syndrome) -On admission: tachycardic with elevated WBC - source of infection : Blood culture growing gram neg pili -WBC 13 -ESR 63 -ProCalcitonin 24.15 up from 17 on admission -CRP 152.9 -Lactate 1.7 on admission -CXR: 01/15- mild pulmonary vasc congestion limited study due to body habitus -urine culture:neg -wound culture: neg -ID, Dr, Vitaliy Hernandes consulted help appreciated: r/o viral syndrome/drugfever/chemo induced fever -Sx Dr. Riojas consulted: help appreciated - in order to r/o infection of port ( recent placement on 12/20/17) -f/u CT chest,abd,pelvis - Medications: * NS@100CC/HR * Cefepime 2g in 100ml q8hrs * Florastor 250mg PO BID * Motrin 400mg PO Q6H PRN for fever>100.4 Chest Tightness -D-Dimer: elevated 1522 -CT angio-Neg for PE -ANTIONE neg x3 -EKG -NSR with nonspecific t wave changes neg x 3 -Venous doppler neg for DVT Pericardial Effusion -echo from 01/11: mild-mod pericardial effusion, EF 50% -Dr. Galan cardiology consult help appreciated Invasive ductal carcinoma of right breast, stage 3 -Dr Fox, Heme/Onc, consulted help appreciated : -Pathology result (11/26/17): * Right invasive ductal carcinoma Grade 3 with right axilla lymph node -Currently chemotherapy ( Started 12/26/17) -Left Port-a-cath placed 12/20/17 Hypertension controlled -lsinopril 20mg PO daily -HCTZ 12.5mg PO daily -low sodium diet Depression Escitalopram 20mg PO QD PPX -GI: Pepcid 20mg PO QD -DVT: Heparin 5,000 units SC Q8H, SCDs -Heart Healthy Diet -PT/OT <TeragabrielAnny Cierra - Last Filed: 01/21/18 23:37> Objective - Vital Signs/Intake and Output Vital Signs (last 24 hours): Temp Pulse Resp BP Pulse Ox 98.7 F 90 20 108/62 95 01/21/18 15:05 01/21/18 16:00 01/21/18 15:05 01/21/18 15:05 01/21/18 15:05 - Medications Medications: Current Medications Escitalopram Oxalate (Lexapro) 20 mg PO DAILY [facility] Last Admin: 01/21/18 09:17 Dose: 20 mg Famotidine (Pepcid) 20 mg PO DAILY [facility] Last Admin: 01/21/18 09:17 Dose: 20 mg Heparin Sodium (Porcine) (Heparin) 5,000 units SC Q8 [facility] Stop: 01/22/18 23:59 Last Admin: 01/21/18 22:04 Dose: 5,000 units Hydrochlorothiazide (Microzide) 12.5 mg PO DAILY [facility] Last Admin: 01/21/18 09:17 Dose: Not Given Ibuprofen (Motrin Tab) 400 mg PO Q6H PRN PRN Reason: Pain, Mild (1-3) Lisinopril (Zestril) 20 mg PO DAILY [facility] Last Admin: 01/21/18 09:17 Dose: Not Given Rosuvastatin Calcium (Crestor) 10 mg PO HS [facility] Last Admin: 01/21/18 22:03 Dose: 10 mg Saccharomyces Boulardii (Florastor) 250 mg PO BID [facility] Last Admin: 01/21/18 17:31 Dose: 250 mg - Labs Labs: 01/21/18 08:27 01/21/18 08:27 PT 12.4 SECONDS (9.7-12.2) H 01/20/18 06:38 INR 1.1 01/20/18 06:38 APTT 32 SECONDS (21-34) 01/20/18 06:38 Attending/Attestation - Attestation I have personally seen and examined this patient.: Yes I have fully participated in the care of the patient.: Yes I have reviewed all pertinent clinical information, including history, physical exam and plan: Yes Notes (Text): This is late computer entry for 01/17/18. Patient seen, examined, and case discussed with day-time resident. Patient has had blood cultures drawn from the port-cath by the surgery team; we will f/u these cultures. Patient noting she has pain from the port cath. Patient 's 01/14/18 are positive we will f/u final culture. We will continue IV Abx. ID is suggesting for CHITO. I have spoken with cardiology will try to schedule for Saturday. (1) SIRS (systemic inflammatory response syndrome) Bacteremia Assessment and Plan: * Criteria: leukocytosis, tachycardia source unclear if its related to port of cath or note * Risk: breast cancer on chemo, immunocomprised * Infectious Disease (Dr. Hernandes) on board-->help appreciated * Antibiotics: * Maxpimine 2gm IVPB Q8H (active since 01/16/18) * Florastor 250mg PO BID * Infectious Disease (Dr. Hernandes) on board-->help appreciated * 01/14/18 Blood culture: f/u * 01/14/18: Blood culture: f/u * 01/14/18: Wound culture: f/u * 01/17/18: Blood culture (from Port-a-cath): pending * General surgery (Dr. Riojas) on the case-->to assess the port for possible infection. * Procalcitonin: 24.15 (01/15/18) * Imaging: * CT Abdomen/pelvis (01/15/18): no acute abdominal or pelvic abnormality. Mild hepatomegaly and fatty liver. Small subcentimeter lesion in the left hepatic lobe is is too small to characterize. Sigmoid diverticulsosi without CT evidence of acute diverticulitis * CT angio (01/15/18): no Ct evidence of acute pulmonary embolism. Scattered pulmonary nodules. the largest subpleural nodule in the right upper lobve measures 1.7cm. Possible metastatic, but cannot ruled out septic embolic/fungal infections-->i spoke with patient as well did heme-oncology regarding nodules. Status: Acute (2) Invasive ductal carcinoma of right breast, stage 3 Assessment and Plan: * Heme-Oncologist (Dr. Terrazas) on board-->help appreciated * Pathology result (11/26/17): Right invasive ductal carcinoma Grade 3 with right axilla lymph node * Patient has had one chemotherapy session and witnessed chills when port was accessed at outpatient Status: Chronic (3) Hypertension Assessment and Plan: * HCTZ 12.5mg PO daily * Lisinopril 20mg PO daily * monitor vital signs Status: Chronic (4) Depression Assessment and Plan: * Lexapro 20mg PO daily Status: Chronic (5) Inspiratory pain Assessment and Plan: * D-dimer: elevated (given breast cancer hx) * CT angio (01/15/18): no Ct evidence of acute pulmonary embolism. Scattered pulmonary nodules. the largest subpleural nodule in the right upper lobve measures 1.7cm. Possible metastatic, but cannot ruled out septic embolic/fungal infections * Cardiac enzymes negative X3 * Venous doppler negative for DVT Status: Resolved (6) Abnormal echocardiogram Pericardial Effusion Assessment and Plan: * Risk factor: on chemotherapuetic (cardio side efects) * Cardiology (Dr. Galan) on the case-->help appreciated * Echocardiogram (01/11/18): left ventricle is normal size, mild concentric left ventricular hypertrophy. EF: 50-55%, left atrium is mildly dilated. mitral regurgitation is mild. elevated right atrial pressure. mild to moderater anterior/posterior percardial effusion * Recommend to repeat echo Status: Acute (7) Transaminitis Assessment and Plan: * possible acute phase reactant * Downtrending * CT Abdomen/pelvis (01/15/18): no acute abdominal or pelvic abnormality. Mild hepatomegaly and fatty liver. Small subcentimeter lesion in the left hepatic lobe is is too small to characterize. Sigmoid diverticulosis without CT evidence of acute diverticulitis Status: Acute (8) Lipid Disorder Assessment and Plan: * Crestor 10mg POqHS Status: Chronic (9) Prophylactic measure Assessment and Plan: * GI: Pepcid 20mg PO QDaily * heparin 5000 units subq8H * Florastor 250mg PO BID
--- NOTE | 2018-01-17 19:55 | CP.PCM.PN ---
Subjective - Date & Time of Evaluation Date of Evaluation: 01/17/18 Time of Evaluation: 19:54 - Subjective Subjective: The patient developed chills again, ? after blood drawing from the port. Case discussed with Dr. Riojas, for port removal tomorrow. Above discussed with the patient. Objective - Vital Signs/Intake and Output Vital Signs (last 24 hours): Temp Pulse Resp BP Pulse Ox 99.9 F H 85 20 136/79 96 01/17/18 15:02 01/17/18 16:00 01/17/18 15:02 01/17/18 15:02 01/17/18 15:02 Intake and Output: 01/17/18 01/18/18 18:59 06:59 Intake Total 1200 Balance 1200 - Medications Medications: Current Medications Escitalopram Oxalate (Lexapro) 20 mg PO DAILY [facility] Last Admin: 01/17/18 09:14 Dose: 20 mg Famotidine (Pepcid) 20 mg PO DAILY [facility] Last Admin: 01/17/18 09:14 Dose: 20 mg Heparin Sodium (Porcine) (Heparin) 5,000 units SC Q8 [facility] Last Admin: 01/17/18 14:04 Dose: 5,000 units Hydrochlorothiazide (Microzide) 12.5 mg PO DAILY [facility] Last Admin: 01/17/18 09:14 Dose: 12.5 mg Sodium Chloride (Sodium Chloride 0.9%) 1,000 mls @ 100 mls/hr IV .Q10H [facility] Last Admin: 01/17/18 18:24 Dose: 100 mls/hr Cefepime HCl (Maxipime Iv 2 Gm Premix) 2 gm in 100 mls @ 200 mls/hr IVPB Q8H [facility] PRN Reason: Protocol Stop: 01/21/18 13:01 Last Admin: 01/17/18 12:37 Dose: 200 mls/hr Ibuprofen (Motrin Tab) 400 mg PO Q6H PRN PRN Reason: Fever >100.4 F Lisinopril (Zestril) 20 mg PO DAILY [facility] Last Admin: 01/17/18 09:14 Dose: 20 mg Rosuvastatin Calcium (Crestor) 10 mg PO HS [facility] Last Admin: 01/16/18 21:19 Dose: 10 mg Saccharomyces Boulardii (Florastor) 250 mg PO BID [facility] Last Admin: 01/17/18 18:11 Dose: 250 mg - Labs Labs: 01/17/18 07:35 01/17/18 07:35 Assessment and Plan (1) Breast cancer Status: Acute
[2018-01-18] MEDS: Cefepime IV 2 gm in Dextrose 2 GM/100 ML BAG IVPB SCH ×3 (05:10→21:32)
[2018-01-18] MEDS: Sodium Chloride 0.9% 1,000 ML IV SCH ×2 (05:11→15:30)
--- NOTE | 2018-01-18 07:43 | CP.PCM.PN ---
Subjective - Date & Time of Evaluation Date of Evaluation: 01/17/18 Time of Evaluation: 15:05 - Subjective Subjective: Patient seen and evaluated Denies chest pain and dyspnea Objective - Vital Signs/Intake and Output Vital Signs (last 24 hours): Temp Pulse Resp BP Pulse Ox 99.5 F 86 20 111/65 95 01/18/18 04:00 01/18/18 04:00 01/18/18 04:00 01/18/18 04:00 01/18/18 04:00 - Medications Medications: Current Medications Escitalopram Oxalate (Lexapro) 20 mg PO DAILY [facility] Last Admin: 01/17/18 09:14 Dose: 20 mg Famotidine (Pepcid) 20 mg PO DAILY [facility] Last Admin: 01/17/18 09:14 Dose: 20 mg Hydrochlorothiazide (Microzide) 12.5 mg PO DAILY [facility] Last Admin: 01/17/18 09:14 Dose: 12.5 mg Cefepime HCl (Maxipime Iv 2 Gm Premix) 2 gm in 100 mls @ 200 mls/hr IVPB Q8H [facility] PRN Reason: Protocol Stop: 01/21/18 13:01 Last Admin: 01/18/18 05:10 Dose: 200 mls/hr Ibuprofen (Motrin Tab) 400 mg PO Q6H PRN PRN Reason: Fever >100.4 F Lisinopril (Zestril) 20 mg PO DAILY [facility] Last Admin: 01/17/18 09:14 Dose: 20 mg Rosuvastatin Calcium (Crestor) 10 mg PO HS [facility] Last Admin: 01/16/18 21:19 Dose: 10 mg Saccharomyces Boulardii (Florastor) 250 mg PO BID [facility] Last Admin: 01/17/18 18:11 Dose: 250 mg - Labs Labs: 01/17/18 07:35 01/17/18 07:35 - Head Exam Head Exam: ATRAUMATIC, NORMAL INSPECTION - Eye Exam Eye Exam: EOMI, PERRL Pupil Exam: NORMAL ACCOMODATION - ENT Exam ENT Exam: Mucous Membranes Moist - Neck Exam Neck Exam: Full ROM, Normal Inspection - Respiratory Exam Respiratory Exam: Clear to Ausculation Bilateral, NORMAL BREATHING PATTERN - Cardiovascular Exam Cardiovascular Exam: REGULAR RHYTHM, +S1, +S2 - GI/Abdominal Exam GI & Abdominal Exam: Normal Bowel Sounds - Extremities Exam Extremities Exam: Full ROM, Normal Capillary Refill - Back Exam Back Exam: NORMAL INSPECTION - Neurological Exam Neurological Exam: Alert, CN II-XII Intact, Oriented x3 - Psychiatric Exam Psychiatric exam: Normal Mood - Skin Skin Exam: Warm Assessment and Plan - Assessment and Plan (Free Text) Assessment: SIRS (systemic inflammatory response syndrome) -On admission: tachycardic with elevated WBC - source of infection : Blood culture growing gram neg pili -WBC 13 -ESR 63 -ProCalcitonin 24.15 up from 17 on admission -CRP 152.9 -Lactate 1.7 on admission -CXR: 01/15- mild pulmonary vasc congestion limited study due to body habitus -urine culture:neg -wound culture: neg -ID, Dr, N Cecilio consulted help appreciated: r/o viral syndrome/drugfever/chemo induced fever -Sx Dr. Riojas consulted: help appreciated - in order to r/o infection of port ( recent placement on 12/20/17) -f/u CT chest,abd,pelvis - Medications: * NS@100CC/HR * Cefepime 2g in 100ml q8hrs * Florastor 250mg PO BID * Motrin 400mg PO Q6H PRN for fever>100.4 Chest Tightness -D-Dimer: elevated 1522 -CT angio-Neg for PE -ANTIONE neg x3 -EKG -NSR with nonspecific t wave changes neg x 3 -Venous doppler neg for DVT Pericardial Effusion -echo from 01/11: mild-mod pericardial effusion, EF 50% -For CHITO Saturday r/o Endocarditis Invasive ductal carcinoma of right breast, stage 3 -Dr Fox, Heme/Onc, consulted help appreciated : -Pathology result (11/26/17): * Right invasive ductal carcinoma Grade 3 with right axilla lymph node -Currently chemotherapy ( Started 12/26/17) -Left Port-a-cath placed 12/20/17 Hypertension controlled -lsinopril 20mg PO daily -HCTZ 12.5mg PO daily -low sodium diet Depression Escitalopram 20mg PO QD PPX -GI: Pepcid 20mg PO QD -DVT: Heparin 5,000 units SC Q8H, SCDs -Heart Healthy Diet -PT/OT
--- NOTE | 2018-01-18 07:47 | CP.PCM.PN ---
Subjective - Date & Time of Evaluation Date of Evaluation: 01/18/18 Time of Evaluation: 07:47 - Subjective Subjective: Resident Progress Note for Dr. Benedict Patient examined at bedside. Objective - Vital Signs/Intake and Output Vital Signs (last 24 hours): Temp Pulse Resp BP Pulse Ox 99.5 F 86 20 111/65 95 01/18/18 04:00 01/18/18 04:00 01/18/18 04:00 01/18/18 04:00 01/18/18 04:00 - Medications Medications: Current Medications Escitalopram Oxalate (Lexapro) 20 mg PO DAILY [facility] Last Admin: 01/17/18 09:14 Dose: 20 mg Famotidine (Pepcid) 20 mg PO DAILY [facility] Last Admin: 01/17/18 09:14 Dose: 20 mg Hydrochlorothiazide (Microzide) 12.5 mg PO DAILY [facility] Last Admin: 01/17/18 09:14 Dose: 12.5 mg Cefepime HCl (Maxipime Iv 2 Gm Premix) 2 gm in 100 mls @ 200 mls/hr IVPB Q8H [facility] PRN Reason: Protocol Stop: 01/21/18 13:01 Last Admin: 01/18/18 05:10 Dose: 200 mls/hr Ibuprofen (Motrin Tab) 400 mg PO Q6H PRN PRN Reason: Fever >100.4 F Lisinopril (Zestril) 20 mg PO DAILY [facility] Last Admin: 01/17/18 09:14 Dose: 20 mg Rosuvastatin Calcium (Crestor) 10 mg PO HS [facility] Last Admin: 01/16/18 21:19 Dose: 10 mg Saccharomyces Boulardii (Florastor) 250 mg PO BID [facility] Last Admin: 01/17/18 18:11 Dose: 250 mg - Labs Labs: 01/17/18 07:35 01/17/18 07:35
--- NOTE | 2018-01-18 08:19 | CP.PCM.PN ---
Subjective - Date & Time of Evaluation Date of Evaluation: 01/18/18 Time of Evaluation: 07:45 - Subjective Subjective: Medical Attending Note: Patient reports she is feeling ok. She denies headache, she reported chills last night, denies nausea, denies vomitting, denies abdominal pain, denies loose bowel movements. I was informed by the nurse she is going to OR today for removal of port of cath. We will see if this is the source of her bacteremia. Objective - Vital Signs/Intake and Output Vital Signs (last 24 hours): Temp Pulse Resp BP Pulse Ox 98.7 F 77 20 98/56 L 97 01/18/18 07:40 01/18/18 07:40 01/18/18 07:40 01/18/18 07:40 01/18/18 07:40 - Medications Medications: Current Medications Escitalopram Oxalate (Lexapro) 20 mg PO DAILY [facility] Last Admin: 01/17/18 09:14 Dose: 20 mg Famotidine (Pepcid) 20 mg PO DAILY [facility] Last Admin: 01/17/18 09:14 Dose: 20 mg Hydrochlorothiazide (Microzide) 12.5 mg PO DAILY [facility] Last Admin: 01/17/18 09:14 Dose: 12.5 mg Cefepime HCl (Maxipime Iv 2 Gm Premix) 2 gm in 100 mls @ 200 mls/hr IVPB Q8H [facility] PRN Reason: Protocol Stop: 01/21/18 13:01 Last Admin: 01/18/18 05:10 Dose: 200 mls/hr Ibuprofen (Motrin Tab) 400 mg PO Q6H PRN PRN Reason: Fever >100.4 F Lisinopril (Zestril) 20 mg PO DAILY [facility] Last Admin: 01/17/18 09:14 Dose: 20 mg Rosuvastatin Calcium (Crestor) 10 mg PO HS [facility] Last Admin: 01/16/18 21:19 Dose: 10 mg Saccharomyces Boulardii (Florastor) 250 mg PO BID [facility] Last Admin: 01/17/18 18:11 Dose: 250 mg - Labs Labs: 01/17/18 07:35 01/17/18 07:35 - Constitutional Appears: Non-toxic, No Acute Distress - Head Exam Head Exam: NORMAL INSPECTION - Eye Exam Eye Exam: EOMI - ENT Exam ENT Exam: Mucous Membranes Moist - Respiratory Exam Respiratory Exam: Clear to Ausculation Bilateral, NORMAL BREATHING PATTERN. absent: Rales, Rhonchi, Wheezes - Cardiovascular Exam Cardiovascular Exam: REGULAR RHYTHM, +S1, +S2 - GI/Abdominal Exam GI & Abdominal Exam: Soft, Normal Bowel Sounds. absent: Distended, Firm, Guarding, Rigid, Tenderness, Rebound - Extremities Exam Extremities Exam: absent: Pedal Edema, Tenderness - Back Exam Back Exam: absent: CVA tenderness (L), CVA tenderness (R) - Neurological Exam Neurological Exam: Alert, Awake, Oriented x3 - Skin Skin Exam: Dry, Normal Color, Warm Additional comments: dressing overt the port-cath site: clean/dry/intact Assessment and Plan - Assessment and Plan (Free Text) Assessment: (1) SIRS (systemic inflammatory response syndrome) Bacteremia Assessment and Plan: * Criteria: leukocytosis, tachycardia source unclear if its related to port of cath or note * Risk: breast cancer on chemo, immunocomprised * Infectious Disease (Dr. Hernandes) on board-->help appreciated * Recommend for CHITO to rule out endocarditis since source is unclear and patient is having chills * I spoke with Dr. Terrazas and Dr. Galan; per Dr. Galan, can schedule for CHITO on Saturday * Antibiotics: * Maxipime 2mg IVPB Q8 (active since 01/16/18) * Zosyn d/c (01/14-01/16/18) * Florastor 250mg PO BID * Infectious Disease (Dr. Hernandes) on board-->help appreciated * 01/14/18 Blood culture: gram negative pili (prelim) * 01/14/18: Urine culture: No growth * 01/14/18: Blood culture: No growth after 3days * 01/14/18: Wound culture: no growth * 01/17/18 Blood culture (Port a cath): pending * General surgery (Dr. Riojas) on the case * Patient is going for Port-cath removal today * Patient is NPO and heparin was held * White count downtrending; afebrile * Procalcitonin: 24.15 (01/15/18) * Will repeat procalcitonin tomorrow * Imaging: * CT Abdomen/pelvis (01/15/18): no acute abdominal or pelvic abnormality. Mild hepatomegaly and fatty liver. Small subcentimeter lesion in the left hepatic lobe is is too small to characterize. Sigmoid diverticulsosi without CT evidence of acute diverticulitis * CT angio (01/15/18): no Ct evidence of acute pulmonary embolism. Scattered pulmonary nodules. the largest subpleural nodule in the right upper lobve measures 1.7cm. Possible metastatic, but cannot ruled out septic embolic/fungal infections Status: Acute (2) Invasive ductal carcinoma of right breast, stage 3 Assessment and Plan: * Heme-Oncologist (Dr. Terrazas) on board-->help appreciated * Pathology result (11/26/17): Right invasive ductal carcinoma Grade 3 with right axilla lymph node * Patient has had one chemotherapy session and witnessed chills when port was accessed at outpatient * She has spoken with the patient with the abnormal lung findings; awaiting to see if port is the source of infectious prior to IR workup Status: Chronic (3) Hypertension Assessment and Plan: * HCTZ 12.5mg PO daily * Lisinopril 20mg PO daily * monitor vital signs Status: Chronic (4) Depression Assessment and Plan: * Lexapro 20mg PO daily Status: Chronic (5) Inspiratory pain Assessment and Plan: * D-dimer: elevated (given breast cancer hx) * CT angio (01/15/18): no Ct evidence of acute pulmonary embolism. Scattered pulmonary nodules. the largest subpleural nodule in the right upper lobve measures 1.7cm. Possible metastatic, but cannot ruled out septic embolic/fungal infections * Cardiac enzymes negative X3 Status: Resolved (6) Abnormal echocardiogram Pericardial Effusion Assessment and Plan: * Risk factor: on chemotherapuetic (cardio side efects) * Cardiology (Dr. Galan) on the case-->help appreciated * Echocardiogram (01/11/18): left ventricle is normal size, mild concentric left ventricular hypertrophy. EF: 50-55%, left atrium is mildly dilated. mitral regurgitation is mild. elevated right atrial pressure. mild to moderater anterior/posterior percardial effusion * Echocardiogram limited (01/17/18): small pericardial effusion. No definite vegetation seen, consider CHITO if clinically indicated * For a possible CHITO on Saturday, January 20 since source of infection is not clear Status: Acute (7) Transaminitis Assessment and Plan: * possible acute phase reactant * Downtrending * CT Abdomen/pelvis (01/15/18): no acute abdominal or pelvic abnormality. Mild hepatomegaly and fatty liver. Small subcentimeter lesion in the left hepatic lobe is is too small to characterize. Sigmoid diverticulsosi without CT evidence of acute diverticulitis Status: Acute (8) Lipid Disorder Assessment and Plan: * Crestor 10mg POqHS Status: Chronic (9) Prophylactic measure Assessment and Plan: * GI: Pepcid 20mg PO QDaily * Heparin held for OR today for removal of port a cath * Florastor 250mg PO BID Disposition; patient is going to OR today for removal of port a cath. Will monitor WBC. Remains afebrile but high risk given cancer/chemo history. Will repeat procalcitonin tomorrow. Patient is for possible CHITO on Saturday.
[2018-01-18] MEDS ORDERED: Midazolam 2 MG/2 ML VIAL ONE (08:34)
[2018-01-18] MEDS ORDERED: Propofol 10 mg/ml Inj (20 ML) ONE (08:34)
[2018-01-18] MEDS ORDERED: Lidocaine Hydrochloride 10 ML INJ ONE (08:45)
[2018-01-18] MEDS ORDERED: HYDROmorphone 0.5 mg/0.5 ml ISec IVP PRN (09:15)
[2018-01-18] MEDS ORDERED: Oxycodone/Acetaminophen 5/325 mg Tab PO PRN (09:18)
--- NOTE | 2018-01-18 09:18 | PCM.SURG1 ---
Surgeon's Initial Post Op Note - Surgeon's Notes Surgeon: Dr. Riojas [employer]: Dr. Pedraza PGY-4 Type of Anesthesia: IV Sedation, Local Pre-Operative Diagnosis: suspected infected portacath Operative Findings: Left subclavian portacath Post-Operative Diagnosis: suspected infected left portacath Operation Performed: Left Portacath removal Specimen/Specimens Removed: 1) catheter tip. 2) cavity fluid. 3) aspirate from reservoir Estimated Blood Loss: EBL {In ML}: 10 Blood Products Given: N/A Drains Used: No Drains Post-Op Condition: Good Date of Surgery/Procedure: 01/18/18 Time of Surgery/Procedure: 08:20
[2018-01-18] MEDS: Saccharomyces Boulardi 250 mg Cap PO SCH ×2 (10:52→17:38)
--- NOTE | 2018-01-18 14:09 | CP.PCM.PN ---
Subjective - Date & Time of Evaluation Date of Evaluation: 01/18/18 Time of Evaluation: 14:08 - Subjective Subjective: CHIEF COMPLAINTS TODAY : EVENTS NOTED. S/P LT.CHEST WALL JUNG-CATH REMOVAL 01/18/18 C/O PAIN AT POST OPTIVE SITE ROS. HEENT : N. Resp : No cough, wheezing ,pleuritic CP ,or hemoptysis Cardio : No anginal CP, PND, orthopnea, palpitation GI : No abd.pain, n/v ,diarrhea or GI bleeding . MANAGER SECONDARY : No headache, vertigo, focal deficit. Musculoskel : No joint swelling , Derm : No rash Psych : Normal affect. Ext : No swelling ,calf pain PE. Pt. is alert awake in no distress. V.S As noted in the chart Head ,ear nose,throat and eyes : Normal. Neck : Supple with normal carotids. Lungs: Clear air entry. Heart : S1 & S2 normal with S4. No murmur. Abd : Soft non tender with normal bowel sounds. Neuro : Moves all ext. with no localized deficit. Ext : No edema with intact pulses.Non tender calves Derm : No rashes or decubitus ulcer. RT. BREAST-SOME INDURATION AROUND AREOLA, NO CELLULITIS .LT. CHEST WALL, MILD TENDERNESS ON PALPATION, S/P REMOVAL PORT CATH. AREA AROUND ERYTHEMATOUS LABS/RADIOLOGY: 2D ECHO; small pericardial effusion, no definite vegetations seen.CHITO RECOMMENDED. WB CIMPROVING. 14.3 Creatinine 0.7/BUN 13 LFTS -IMPROVING. Pro-calcitonin high. BLOOD CULTURES- 01/14/18 1:2 SETS -PSEUDOMONAS-AERUGINOSA BLOOD CULTURES 01/17/18 GNR 2:2 SETS Objective - Vital Signs/Intake and Output Vital Signs (last 24 hours): Temp Pulse Resp BP Pulse Ox 97.2 F L 70 12 100/58 L 98 01/18/18 10:00 01/18/18 11:10 01/18/18 10:00 01/18/18 11:10 01/18/18 10:00 Intake and Output: 01/18/18 01/18/18 06:59 18:59 Intake Total 500 Balance 500 - Medications Medications: Current Medications Escitalopram Oxalate (Lexapro) 20 mg PO DAILY [facility] Last Admin: 01/18/18 10:52 Dose: 20 mg Famotidine (Pepcid) 20 mg PO DAILY [facility] Last Admin: 01/18/18 10:52 Dose: 20 mg Hydrochlorothiazide (Microzide) 12.5 mg PO DAILY [facility] Last Admin: 01/18/18 10:45 Dose: Not Given Cefepime HCl (Maxipime Iv 2 Gm Premix) 2 gm in 100 mls @ 200 mls/hr IVPB Q8H [facility] PRN Reason: Protocol Stop: 01/21/18 13:01 Last Admin: 01/18/18 13:49 Dose: 200 mls/hr Ibuprofen (Motrin Tab) 400 mg PO Q6H PRN PRN Reason: Fever >100.4 F Lisinopril (Zestril) 20 mg PO DAILY [facility] Last Admin: 01/18/18 10:52 Dose: 20 mg Oxycodone/Acetaminophen (Percocet 5/325 Mg Tab) 1 tab PO Q4H PRN PRN Reason: Pain, moderate (4-7) Stop: 01/21/18 09:19 Rosuvastatin Calcium (Crestor) 10 mg PO HS [facility] Last Admin: 01/16/18 21:19 Dose: 10 mg Saccharomyces Boulardii (Florastor) 250 mg PO BID [facility] Last Admin: 01/18/18 10:52 Dose: 250 mg - Labs Labs: 01/17/18 07:35 01/17/18 07:35 Assessment and Plan (1) Gram negative sepsis Assessment & Plan: BLOOD CULTURES GRAM-NEGATIVE RODS 01/14/18 GREW PSEUDOMONAS-AERUGINOSA CONTINUE iv ANTIBIOTICS. S/P JUNG CATH REMOVAL TODAY REPEAT CULTURES 01/17 2:2 SETS +VE GNR F/U CHITO ON SATURDAY WITH CARDIOLOGY. Status: Acute (2) Leukocytosis (leucocytosis) Status: Acute (3) Hypertension Status: Acute
[2018-01-18 14:29] LABS: BASO % 0.8 % (0.0-2.0); EOS % 0.4 % (0.0-4.0); HEMOGLOBIN 10.5 g/dL (11.0-16.0); LYMPH % 16.2 % (20.0-40.0); MEAN CELL VOLUME 91.4 fL (81.0-99.0); MEAN CORPUSCULAR HEMOGLOBIN 31.3 pg (27.0-31.0); MEAN CORPUSCULAR HGB CONC 34.2 g/dL (33.0-37.0); MEAN PLATELET VOLUME 7.2 fL (7.2-11.7); MONO % 8.4 % (0.0-10.0); NEUT % 74.2 % (50.0-75.0); RBC 3.37 Mil/uL (3.80-5.20); RED CELL DISTRIBUTION WIDTH 13.2 % (11.5-14.5); WHITE BLOOD COUNT 14.3 K/uL (4.8-10.8)
[2018-01-18 14:30] LABS: BASO # 0.1 K/uL (0.0-0.2); EOS # 0.1 K/uL (0.0-0.7); LYMPH # 2.3 K/uL (1.0-4.3); MONO # 1.2 K/uL (0.0-0.8); NEUT # 10.1 K/uL (1.8-7.0); NRBC % 0.1 % (0.0-2.0)
[2018-01-18 16:51] VITALS: RESP 20
[2018-01-18 17:45] LABS: ALB/GLOB RATIO 1.4 (1.0-2.1); ALBUMIN 4.2 g/dL (3.5-5.0); ALT/SGPT 86 U/L (9-52); AST/SGOT 37 U/L (14-36); BLOOD UREA NITROGEN 13 mg/dL (7-17); CALCIUM 9.6 mg/dl (8.6-10.4); GFR AFRICAN-AMERICAN > 60; GFR NON-AFRICAN AMERICAN > 60
--- NOTE | 2018-01-18 21:51 | CP.PCM.PN ---
Subjective - Date & Time of Evaluation Date of Evaluation: 01/18/18 Time of Evaluation: 16:40 Objective - Vital Signs/Intake and Output Vital Signs (last 24 hours): Temp Pulse Resp BP Pulse Ox 97.3 F L 85 20 126/72 100 01/18/18 16:00 01/18/18 16:00 01/18/18 16:00 01/18/18 16:00 01/18/18 16:00 Intake and Output: 01/18/18 01/19/18 18:59 06:59 Intake Total 1300 Balance 1300 - Medications Medications: Current Medications Escitalopram Oxalate (Lexapro) 20 mg PO DAILY [facility] Last Admin: 01/18/18 10:52 Dose: 20 mg Famotidine (Pepcid) 20 mg PO DAILY [facility] Last Admin: 01/18/18 10:52 Dose: 20 mg Hydrochlorothiazide (Microzide) 12.5 mg PO DAILY [facility] Last Admin: 01/18/18 10:45 Dose: Not Given Cefepime HCl (Maxipime Iv 2 Gm Premix) 2 gm in 100 mls @ 200 mls/hr IVPB Q8H [facility] PRN Reason: Protocol Stop: 01/21/18 13:01 Last Admin: 01/18/18 21:32 Dose: 200 mls/hr Sodium Chloride (Sodium Chloride 0.9%) 1,000 mls @ 100 mls/hr IV .Q10H [facility] Ibuprofen (Motrin Tab) 400 mg PO Q6H PRN PRN Reason: Fever >100.4 F Lisinopril (Zestril) 20 mg PO DAILY [facility] Last Admin: 01/18/18 10:52 Dose: 20 mg Oxycodone/Acetaminophen (Percocet 5/325 Mg Tab) 1 tab PO Q4H PRN PRN Reason: Pain, moderate (4-7) Stop: 01/21/18 09:19 Last Admin: 01/18/18 18:22 Dose: 1 tab Rosuvastatin Calcium (Crestor) 10 mg PO HS [facility] Last Admin: 01/18/18 21:32 Dose: 10 mg Saccharomyces Boulardii (Florastor) 250 mg PO BID [facility] Last Admin: 01/18/18 17:38 Dose: 250 mg - Labs Labs: 01/18/18 14:14 01/18/18 17:16
[2018-01-19] MEDS: Sodium Chloride 0.9% 1,000 ML IV SCH ×4 (00:21→12:34)
[2018-01-19] MEDS: Cefepime IV 2 gm in Dextrose 2 GM/100 ML BAG IVPB SCH ×3 (05:20→22:14)
--- NOTE | 2018-01-19 08:17 | CP.PCM.PN ---
Subjective - Date & Time of Evaluation Date of Evaluation: 01/19/18 Time of Evaluation: 08:18 - Subjective Subjective: Resident Progress Note for Dr. Benedict Objective - Vital Signs/Intake and Output Vital Signs (last 24 hours): Temp Pulse Resp BP Pulse Ox 98.2 F 83 20 131/78 95 01/19/18 07:00 01/19/18 07:00 01/19/18 07:00 01/19/18 07:00 01/19/18 07:00 Intake and Output: 01/19/18 01/19/18 06:59 18:59 Intake Total 2380 Balance 2380 - Medications Medications: Current Medications Escitalopram Oxalate (Lexapro) 20 mg PO DAILY [facility] Last Admin: 01/18/18 10:52 Dose: 20 mg Famotidine (Pepcid) 20 mg PO DAILY [facility] Last Admin: 01/18/18 10:52 Dose: 20 mg Hydrochlorothiazide (Microzide) 12.5 mg PO DAILY [facility] Last Admin: 01/18/18 10:45 Dose: Not Given Cefepime HCl (Maxipime Iv 2 Gm Premix) 2 gm in 100 mls @ 200 mls/hr IVPB Q8H [facility] PRN Reason: Protocol Stop: 01/21/18 13:01 Last Admin: 01/19/18 05:20 Dose: 200 mls/hr Sodium Chloride (Sodium Chloride 0.9%) 1,000 mls @ 100 mls/hr IV .Q10H [facility] Last Admin: 01/19/18 00:30 Dose: 100 mls/hr Ibuprofen (Motrin Tab) 400 mg PO Q6H PRN PRN Reason: Fever >100.4 F Lisinopril (Zestril) 20 mg PO DAILY [facility] Last Admin: 01/18/18 10:52 Dose: 20 mg Oxycodone/Acetaminophen (Percocet 5/325 Mg Tab) 1 tab PO Q4H PRN PRN Reason: Pain, moderate (4-7) Stop: 01/21/18 09:19 Last Admin: 01/18/18 18:22 Dose: 1 tab Rosuvastatin Calcium (Crestor) 10 mg PO HS [facility] Last Admin: 01/18/18 21:32 Dose: 10 mg Saccharomyces Boulardii (Florastor) 250 mg PO BID [facility] Last Admin: 01/18/18 17:38 Dose: 250 mg - Labs Labs: 01/18/18 14:14 01/18/18 17:16
[2018-01-19 09:00] LABS: BASO # 0.1 K/uL (0.0-0.2); BASO % 0.6 % (0.0-2.0); EOS # 0.1 K/uL (0.0-0.7); EOS % 0.8 % (0.0-4.0); HEMOGLOBIN 11.4 g/dL (11.0-16.0); LYMPH # 2.3 K/uL (1.0-4.3); LYMPH % 20.1 % (20.0-40.0); MEAN CELL VOLUME 91.3 fL (81.0-99.0); MEAN CORPUSCULAR HEMOGLOBIN 30.9 pg (27.0-31.0); MEAN CORPUSCULAR HGB CONC 33.9 g/dL (33.0-37.0); MEAN PLATELET VOLUME 7.4 fL (7.2-11.7); MONO # 1.3 K/uL (0.0-0.8); NEUT # 7.8 K/uL (1.8-7.0); NEUT % 67.5 % (50.0-75.0); NRBC % 0.1 % (0.0-2.0); RBC 3.68 Mil/uL (3.80-5.20); RED CELL DISTRIBUTION WIDTH 13.8 % (11.5-14.5); WHITE BLOOD COUNT 11.5 K/uL (4.8-10.8)
[2018-01-19 09:12] LABS: ALB/GLOB RATIO 1.2 (1.0-2.1); ALBUMIN 4.1 g/dL (3.5-5.0); ALT/SGPT 76 U/L (9-52); AST/SGOT 29 U/L (14-36); BLOOD UREA NITROGEN 8 mg/dL (7-17); CALCIUM 9.8 mg/dl (8.6-10.4); GFR AFRICAN-AMERICAN > 60; GFR NON-AFRICAN AMERICAN > 60
[2018-01-19] MEDS: Saccharomyces Boulardi 250 mg Cap PO SCH ×2 (09:40→17:37)
--- NOTE | 2018-01-19 13:25 | CP.PCM.PN ---
Subjective - Date & Time of Evaluation Date of Evaluation: 01/19/18 Time of Evaluation: 11:15 - Subjective Subjective: Medical Attending Note: Patient seen and examined at bedside. Patient denies headache, denies chest pain, denies palpitations, denies nausea, denies vomitting, reports mild pain over the surgery site, denies abdominal pain , denies nausea, denies constipation, and denies urinary complaints. Objective - Vital Signs/Intake and Output Vital Signs (last 24 hours): Temp Pulse Resp BP Pulse Ox 98.2 F 71 20 131/78 95 01/19/18 07:00 01/19/18 08:00 01/19/18 07:00 01/19/18 07:00 01/19/18 07:00 Intake and Output: 01/19/18 01/19/18 06:59 18:59 Intake Total 2380 Balance 2380 - Medications Medications: Current Medications Escitalopram Oxalate (Lexapro) 20 mg PO DAILY [facility] Last Admin: 01/19/18 09:40 Dose: 20 mg Famotidine (Pepcid) 20 mg PO DAILY [facility] Last Admin: 01/19/18 09:40 Dose: 20 mg Hydrochlorothiazide (Microzide) 12.5 mg PO DAILY [facility] Last Admin: 01/19/18 09:40 Dose: 12.5 mg Cefepime HCl (Maxipime Iv 2 Gm Premix) 2 gm in 100 mls @ 200 mls/hr IVPB Q8H [facility] PRN Reason: Protocol Stop: 01/21/18 13:01 Last Admin: 01/19/18 05:20 Dose: 200 mls/hr Sodium Chloride (Sodium Chloride 0.9%) 1,000 mls @ 100 mls/hr IV .Q10H [facility] Last Admin: 01/19/18 12:34 Dose: Not Given Ibuprofen (Motrin Tab) 400 mg PO Q6H PRN PRN Reason: Fever >100.4 F Lisinopril (Zestril) 20 mg PO DAILY [facility] Last Admin: 01/19/18 09:40 Dose: 20 mg Oxycodone/Acetaminophen (Percocet 5/325 Mg Tab) 1 tab PO Q4H PRN PRN Reason: Pain, moderate (4-7) Stop: 01/21/18 09:19 Last Admin: 01/18/18 18:22 Dose: 1 tab Rosuvastatin Calcium (Crestor) 10 mg PO HS [facility] Last Admin: 01/18/18 21:32 Dose: 10 mg Saccharomyces Boulardii (Florastor) 250 mg PO BID [facility] Last Admin: 01/19/18 09:40 Dose: 250 mg - Labs Labs: 01/19/18 08:41 01/19/18 08:41 - Constitutional Appears: Non-toxic, No Acute Distress - Head Exam Head Exam: NORMAL INSPECTION - Eye Exam Eye Exam: EOMI - ENT Exam ENT Exam: Mucous Membranes Moist - Respiratory Exam Respiratory Exam: Clear to Ausculation Bilateral, NORMAL BREATHING PATTERN. absent: Rales, Rhonchi, Wheezes - Cardiovascular Exam Cardiovascular Exam: REGULAR RHYTHM, +S1, +S2 - GI/Abdominal Exam GI & Abdominal Exam: Soft, Normal Bowel Sounds. absent: Distended, Firm, Guarding, Rigid, Tenderness, Rebound - Extremities Exam Extremities Exam: absent: Pedal Edema, Tenderness - Neurological Exam Neurological Exam: Alert, Awake, Oriented x3 - Skin Skin Exam: Dry, Intact, Warm Additional comments: dressing over left side of chest: clean, mild erythema noted, and pain on palpation Assessment and Plan - Assessment and Plan (Free Text) Assessment: (1) SIRS (systemic inflammatory response syndrome) Bacteremia Assessment and Plan: * Criteria: leukocytosis, tachycardia source unclear if its related to port of cath or note * Risk: breast cancer on chemo, immunocomprised * Infectious Disease (Dr. Hernandes) on board-->help appreciated * Recommend for CHITO to rule out endocarditis since source is unclear and patient is having chills * I spoke with Dr. Maradiaga and Dr. Galan; per Dr. Galan, can schedule for CHITO on Saturday, January 19-->will be an add on case for Saturday; recommends NPO no medications overnight * Antibiotics: * Maxipime 2mg IVPB Q8 (active since 01/16/18) * Zosyn d/c (01/14-01/16/18) * Florastor 250mg PO BID * Infectious Disease (Dr. Hernandes) on board-->help appreciated * 01/14/18 Blood culture: Pseudomonas Aeruginosa * 01/14/18: Blood culture: No growth after 4 days * 01/14/18: Wound culture: no growth * 01/14/18: Urine culture: No growth * 01/17/18 Blood culture (Port a cath): gram negative pili X2 * 01/19/18: Blood culture: repeat to see if bacteremia is clearing * General surgery (Dr. Riojas) on the case * Patient s/p Port-cath removal from 01/18/18 * f/u 1) catheter tip. 2) cavity fluid. 3) aspirate from reservoir * White count downtrending; afebrile * Procalcitonin: 24.15 (01/15/18)--->f/u repeat procalcitonin * Imaging: * CT Abdomen/pelvis (01/15/18): no acute abdominal or pelvic abnormality. Mild hepatomegaly and fatty liver. Small subcentimeter lesion in the left hepatic lobe is is too small to characterize. Sigmoid diverticulsosi without CT evidence of acute diverticulitis * CT angio (01/15/18): no Ct evidence of acute pulmonary embolism. Scattered pulmonary nodules. the largest subpleural nodule in the right upper lobve measures 1.7cm. Possible metastatic, but cannot ruled out septic embolic/fungal infections Status: Acute (2) Invasive ductal carcinoma of right breast, stage 3 Assessment and Plan: * Heme-Oncologist (Dr. Maradiaga) on board-->help appreciated * Pathology result (11/26/17): Right invasive ductal carcinoma Grade 3 with right axilla lymph node * Patient has had one chemotherapy session and witnessed chills when port was accessed at outpatient * She has spoken with the patient with the abnormal lung findings; awaiting to see if port is the source of infectious prior to IR workup Status: Chronic (3) Hypertension Assessment and Plan: * HCTZ 12.5mg PO daily * Lisinopril 20mg PO daily * monitor vital signs Status: Chronic (4) Depression Assessment and Plan: * Lexapro 20mg PO daily Status: Chronic (5) Inspiratory pain Assessment and Plan: * D-dimer: elevated (given breast cancer hx) * CT angio (01/15/18): no Ct evidence of acute pulmonary embolism. Scattered pulmonary nodules. the largest subpleural nodule in the right upper lobve measures 1.7cm. Possible metastatic, but cannot ruled out septic embolic/fungal infections * Cardiac enzymes negative X3 Status: Resolved (6) Abnormal echocardiogram Pericardial Effusion Assessment and Plan: * Risk factor: on chemotherapuetic (cardio side efects) * Cardiology (Dr. Galan) on the case-->help appreciated * Echocardiogram (01/11/18): left ventricle is normal size, mild concentric left ventricular hypertrophy. EF: 50-55%, left atrium is mildly dilated. mitral regurgitation is mild. elevated right atrial pressure. mild to moderater anterior/posterior percardial effusion * Echocardiogram limited (01/17/18): small pericardial effusion. No definite vegetation seen, consider CHITO if clinically indicated * For a possible CHITO on Saturday, January 20 since source of infection is not clear * This is an add on case for Saturday. NPO no medications. Status: Acute (7) Transaminitis Assessment and Plan: * possible acute phase reactant * Downtrending * CT Abdomen/pelvis (01/15/18): no acute abdominal or pelvic abnormality. Mild hepatomegaly and fatty liver. Small subcentimeter lesion in the left hepatic lobe is is too small to characterize. Sigmoid diverticulosis without CT evidence of acute diverticulitis Status: Acute (8) Lipid Disorder Assessment and Plan: * Crestor 10mg POqHS Status: Chronic (9) Prophylactic measure Assessment and Plan: * GI: Pepcid 20mg PO QDaily * heparin 5000 units subq8H * Hold after midnight for CHITO on saturday * Florastor 250mg PO BID Disposition: * Follow-up Blood culture (01/17/18) Which were drawn from Port-cath * Follow-up Blood culture (01/19/18) to show Bacteremia is resolving * Follow-up OR culture (01/18/18) to confirm from port a cath * Discussed with Dr. Galan, for a CHITO tomorrow January 20. Patient to be NPO no medications overnight. * If cultures are negative, we will need to discuss with Dr. Hernandes regarding if PO option is available once infection is resolving in the blood and we have ruled out endocarditis. * Will need procalcitonin to be followed to show infection is resolving. * Following resolution of infection, patient will need further workup for pulmonary nodules; I have discussed with dr. maradiaga recently who is aware.
--- NOTE | 2018-01-19 13:59 | CP.PCM.PN ---
Subjective - Date & Time of Evaluation Date of Evaluation: 01/19/18 Time of Evaluation: 07:55 - Subjective Subjective: General surgery progress note for Dr. Riojas Patient seen and examined this am at bedside. Nursing indicates that patient would like to switch pain meds to motrin as percocet gives her unpleasant dreams. patient states that she has some pain at the incision site but otherwise denies f/c/n/v/sob/chest pain Objective - Vital Signs/Intake and Output Vital Signs (last 24 hours): Temp Pulse Resp BP Pulse Ox 98.2 F 71 20 131/78 95 01/19/18 07:00 01/19/18 08:00 01/19/18 07:00 01/19/18 07:00 01/19/18 07:00 Intake and Output: 01/19/18 01/19/18 06:59 18:59 Intake Total 2380 Balance 2380 - Medications Medications: Current Medications Escitalopram Oxalate (Lexapro) 20 mg PO DAILY [facility] Last Admin: 01/19/18 09:40 Dose: 20 mg Famotidine (Pepcid) 20 mg PO DAILY [facility] Last Admin: 01/19/18 09:40 Dose: 20 mg Hydrochlorothiazide (Microzide) 12.5 mg PO DAILY [facility] Last Admin: 01/19/18 09:40 Dose: 12.5 mg Cefepime HCl (Maxipime Iv 2 Gm Premix) 2 gm in 100 mls @ 200 mls/hr IVPB Q8H [facility] PRN Reason: Protocol Stop: 01/21/18 13:01 Last Admin: 01/19/18 13:34 Dose: 200 mls/hr Sodium Chloride (Sodium Chloride 0.9%) 1,000 mls @ 100 mls/hr IV .Q10H [facility] Last Admin: 01/19/18 12:34 Dose: Not Given Ibuprofen (Motrin Tab) 400 mg PO Q6H PRN PRN Reason: Fever >100.4 F Lisinopril (Zestril) 20 mg PO DAILY [facility] Last Admin: 01/19/18 09:40 Dose: 20 mg Oxycodone/Acetaminophen (Percocet 5/325 Mg Tab) 1 tab PO Q4H PRN PRN Reason: Pain, moderate (4-7) Stop: 01/21/18 09:19 Last Admin: 01/18/18 18:22 Dose: 1 tab Rosuvastatin Calcium (Crestor) 10 mg PO HS [facility] Last Admin: 01/18/18 21:32 Dose: 10 mg Saccharomyces Boulardii (Florastor) 250 mg PO BID [facility] Last Admin: 01/19/18 09:40 Dose: 250 mg - Labs Labs: 01/19/18 08:41 01/19/18 08:41 - Constitutional Appears: Well, Non-toxic, No Acute Distress - Head Exam Head Exam: ATRAUMATIC, NORMOCEPHALIC - Eye Exam Eye Exam: Normal appearance - ENT Exam ENT Exam: Mucous Membranes Moist - Respiratory Exam Respiratory Exam: NORMAL BREATHING PATTERN Additional comments: tenderness at incision site - Cardiovascular Exam Cardiovascular Exam: +S1, +S2 - GI/Abdominal Exam GI & Abdominal Exam: Soft. absent: Tenderness - Neurological Exam Neurological Exam: Alert, Awake, Oriented x3 - Psychiatric Exam Psychiatric exam: Normal Affect, Normal Mood - Skin Skin Exam: Dry, Intact, Normal Color, Warm Additional comments: incision cdi Assessment and Plan - Assessment and Plan (Free Text) Assessment: 67 yr old female s/p portacath removel POD 1 Plan: - will switch percocet to motrin for pain as patient requested - will f/u cultures from OR
--- NOTE | 2018-01-19 16:40 | CP.PCM.PN ---
Subjective - Date & Time of Evaluation Date of Evaluation: 01/19/18 Time of Evaluation: 16:39 - Subjective Subjective: Patient seen and examined at bedside. Some amount of dyspnea na chest pain still there Patient denies headache, denies chest pain, denies palpitations, denies nausea, denies vomitting, reports mild pain over the surgery site, denies abdominal pain , denies nausea, denies constipation, and denies urinary complaints. Physical Examination - Constitutional Appears: Non-toxic, No Acute Distress - Head Exam Head Exam: NORMAL INSPECTION - Eye Exam Eye Exam: EOMI - ENT Exam ENT Exam: Mucous Membranes Moist - Respiratory Exam Respiratory Exam: Clear to Ausculation Bilateral, NORMAL BREATHING PATTERN. absent: Rales, Rhonchi, Wheezes - Cardiovascular Exam Cardiovascular Exam: REGULAR RHYTHM, +S1, +S2 - GI/Abdominal Exam GI & Abdominal Exam: Soft, Normal Bowel Sounds. absent: Distended, Firm, Guarding, Rigid, Tenderness, Rebound - Extremities Exam Extremities Exam: absent: Pedal Edema, Tenderness - Neurological Exam Neurological Exam: Alert, Awake, Oriented x3 - Skin Skin Exam: Dry, Intact, Warm Additional comments: dressing over left side of chest: clean, mild erythema noted, and pain on palpation Objective - Vital Signs/Intake and Output Vital Signs (last 24 hours): Temp Pulse Resp BP Pulse Ox 98.2 F 73 20 131/78 95 01/19/18 07:00 01/19/18 13:00 01/19/18 07:00 01/19/18 07:00 01/19/18 07:00 Intake and Output: 01/19/18 01/19/18 06:59 18:59 Intake Total 2380 1350 Balance 2380 1350 - Medications Medications: Current Medications Escitalopram Oxalate (Lexapro) 20 mg PO DAILY [facility] Last Admin: 01/19/18 09:40 Dose: 20 mg Famotidine (Pepcid) 20 mg PO DAILY [facility] Last Admin: 01/19/18 09:40 Dose: 20 mg Heparin Sodium (Porcine) (Heparin) 5,000 units SC Q8 [facility] Stop: 01/22/18 23:59 Last Admin: 01/19/18 15:02 Dose: 5,000 units Hydrochlorothiazide (Microzide) 12.5 mg PO DAILY [facility] Last Admin: 01/19/18 09:40 Dose: 12.5 mg Cefepime HCl (Maxipime Iv 2 Gm Premix) 2 gm in 100 mls @ 200 mls/hr IVPB Q8H [facility] PRN Reason: Protocol Stop: 01/21/18 13:01 Last Admin: 01/19/18 13:34 Dose: 200 mls/hr Sodium Chloride (Sodium Chloride 0.9%) 1,000 mls @ 100 mls/hr IV .Q10H [facility] Last Admin: 01/19/18 12:34 Dose: Not Given Ibuprofen (Motrin Tab) 400 mg PO Q6H PRN PRN Reason: Pain, Mild (1-3) Lisinopril (Zestril) 20 mg PO DAILY [facility] Last Admin: 01/19/18 09:40 Dose: 20 mg Rosuvastatin Calcium (Crestor) 10 mg PO HS [facility] Last Admin: 01/18/18 21:32 Dose: 10 mg Saccharomyces Boulardii (Florastor) 250 mg PO BID [facility] Last Admin: 01/19/18 09:40 Dose: 250 mg - Labs Labs: 01/19/18 08:41 01/19/18 08:41 Assessment and Plan - Assessment and Plan (Free Text) Assessment: (1) SIRS (systemic inflammatory response syndrome) Bacteremia Assessment and Plan: * Criteria: leukocytosis, tachycardia source unclear if its related to port of cath or note * Risk: breast cancer on chemo, immunocomprised * Infectious Disease (Dr. Hernandes) on board-->help appreciated * Recommend for CHITO to rule out endocarditis since source is unclear and patient is having chills * I spoke with Dr. Maradiaga and Dr. Galan; per Dr. Galan, can schedule for CHITO on January 19-->will be an add on case for Saturday; recommends NPO no medications overnight * Antibiotics: * Maxipime 2mg IVPB Q8 (active since 01/16/18) * Zosyn d/c (01/14-01/16/18) * Florastor 250mg PO BID * Infectious Disease (Dr. Hernandes) on board-->help appreciated * 01/14/18 Blood culture: Pseudomonas Aeruginosa * 01/14/18: Blood culture: No growth after 4 days * 01/14/18: Wound culture: no growth * 01/14/18: Urine culture: No growth * 01/17/18 Blood culture (Port a cath): gram negative pili X2 * 01/19/18: Blood culture: repeat to see if bacteremia is clearing * General surgery (Dr. Riojas) on the case * Patient s/p Port-cath removal from 01/18/18 * f/u 1) catheter tip. 2) cavity fluid. 3) aspirate from reservoir * White count downtrending; afebrile * Procalcitonin: 24.15 (01/15/18)--->f/u repeat procalcitonin * Imaging: * CT Abdomen/pelvis (01/15/18): no acute abdominal or pelvic abnormality. Mild hepatomegaly and fatty liver. Small subcentimeter lesion in the left hepatic lobe is is too small to characterize. Sigmoid diverticulsosi without CT evidence of acute diverticulitis * CT angio (01/15/18): no Ct evidence of acute pulmonary embolism. Scattered pulmonary nodules. the largest subpleural nodule in the right upper lobve measures 1.7cm. Possible metastatic, but cannot ruled out septic embolic/fungal infections Status: Acute (2) Invasive ductal carcinoma of right breast, stage 3 Assessment and Plan: * Heme-Oncologist (Dr. Maradiaga) on board-->help appreciated * Pathology result (11/26/17): Right invasive ductal carcinoma Grade 3 with right axilla lymph node * Patient has had one chemotherapy session and witnessed chills when port was accessed at outpatient * She has spoken with the patient with the abnormal lung findings; awaiting to see if port is the source of infectious prior to IR workup Status: Chronic (3) Hypertension Assessment and Plan: * HCTZ 12.5mg PO daily * Lisinopril 20mg PO daily * monitor vital signs Status: Chronic (4) Depression Assessment and Plan: * Lexapro 20mg PO daily Status: Chronic (5) Inspiratory pain Assessment and Plan: * D-dimer: elevated (given breast cancer hx) * CT angio (01/15/18): no Ct evidence of acute pulmonary embolism. Scattered pulmonary nodules. the largest subpleural nodule in the right upper lobve measures 1.7cm. Possible metastatic, but cannot ruled out septic embolic/fungal infections * Cardiac enzymes negative X3 Status: Resolved (6) Abnormal echocardiogram Pericardial Effusion Assessment and Plan: * Risk factor: on chemotherapuetic (cardio side efects) * Echocardiogram (01/11/18): left ventricle is normal size, mild concentric left ventricular hypertrophy. EF: 50-55%, left atrium is mildly dilated. mitral regurgitation is mild. elevated right atrial pressure. mild to moderater anterior/posterior percardial effusion * Echocardiogram limited (01/17/18): small pericardial effusion. No definite vegetation seen, consider CHITO if clinically indicated * For a possible CHITO on Saturday, January 20 since source of infection is not clear * This is an add on case for Saturday. NPO no medications. Status: Acute (7) Transaminitis Assessment and Plan: * possible acute phase reactant * Downtrending * CT Abdomen/pelvis (01/15/18): no acute abdominal or pelvic abnormality. Mild hepatomegaly and fatty liver. Small subcentimeter lesion in the left hepatic lobe is is too small to characterize. Sigmoid diverticulosis without CT evidence of acute diverticulitis Status: Acute (8) Lipid Disorder Assessment and Plan: * Crestor 10mg POqHS Status: Chronic (9) Prophylactic measure Assessment and Plan: * GI: Pepcid 20mg PO QDaily * heparin 5000 units subq8H * Hold after midnight for CHITO on saturday * Florastor 250mg PO BID Disposition: * Follow-up Blood culture (01/17/18) Which were drawn from Port-cath * Follow-up Blood culture (01/19/18) to show Bacteremia is resolving * Follow-up OR culture (01/18/18) to confirm from port a cath * Discussed with Dr. Galan, for a CHITO tomorrow January 20. Patient to be NPO no medications overnight. * If cultures are negative, we will need to discuss with Dr. Hernandes regarding if PO option is available once infection is resolving in the blood and we have ruled out endocarditis. * Will need procalcitonin to be followed to show infection is resolving. * Following resolution of infection, patient will need further workup for pulmonary nodules; I have discussed with dr. maradiaga recently who is aware.
--- NOTE | 2018-01-19 23:13 | CP.PCM.PN ---
Subjective - Date & Time of Evaluation Date of Evaluation: 01/19/18 Time of Evaluation: 23:13 - Subjective Subjective: CHIEF COMPLAINTS TODAY : afebrile. c/o mild pain and postoperative site. S/P LT.CHEST WALL JUNG-CATH REMOVAL 01/18/18 cardiology follow-up noted. ROS. HEENT : N. Resp : No cough, wheezing ,pleuritic CP ,or hemoptysis Cardio : No anginal CP, PND, orthopnea, palpitation GI : No abd.pain, n/v ,diarrhea or GI bleeding . TOWEL INSPECTOR : No headache, vertigo, focal deficit. Musculoskel : No joint swelling , Derm : No rash Psych : Normal affect. Ext : No swelling ,calf pain PE. Pt. is alert awake in no distress. V.S As noted in the chart Head ,ear nose,throat and eyes : Normal. Neck : Supple with normal carotids. Lungs: Clear air entry. Heart : S1 & S2 normal with S4. No murmur. Abd : Soft non tender with normal bowel sounds. Neuro : Moves all ext. with no localized deficit. Ext : No edema with intact pulses.Non tender calves Derm : No rashes or decubitus ulcer. RT. BREAST-SOME INDURATION AROUND AREOLA, NO CELLULITIS .LT. CHEST WALL, MILD TENDERNESS ON PALPATION, S/P REMOVAL PORT CATH. AREA AROUND ERYTHEMATOUS LABS/RADIOLOGY: 2D ECHO; small pericardial effusion, no definite vegetations seen.CHITO RECOMMENDED. BLOOD CULTURES- 01/14/18 1:2 SETS -PSEUDOMONAS-AERUGINOSA BLOOD CULTURES 01/17/18 GNR 2:2 SETS - pending identification Objective - Vital Signs/Intake and Output Vital Signs (last 24 hours): Temp Pulse Resp BP Pulse Ox 98.5 F 75 20 111/60 95 01/19/18 16:00 01/19/18 16:00 01/19/18 16:00 01/19/18 16:00 01/19/18 16:00 Intake and Output: 01/19/18 01/20/18 18:59 06:59 Intake Total 1350 1280 Balance 1350 1280 - Medications Medications: Current Medications Escitalopram Oxalate (Lexapro) 20 mg PO DAILY [facility] Last Admin: 01/19/18 09:40 Dose: 20 mg Famotidine (Pepcid) 20 mg PO DAILY [facility] Last Admin: 01/19/18 09:40 Dose: 20 mg Heparin Sodium (Porcine) (Heparin) 5,000 units SC Q8 [facility] Stop: 01/22/18 23:59 Last Admin: 01/19/18 22:14 Dose: 5,000 units Hydrochlorothiazide (Microzide) 12.5 mg PO DAILY [facility] Last Admin: 01/19/18 09:40 Dose: 12.5 mg Cefepime HCl (Maxipime Iv 2 Gm Premix) 2 gm in 100 mls @ 200 mls/hr IVPB Q8H [facility] PRN Reason: Protocol Stop: 01/21/18 13:01 Last Admin: 01/19/18 22:14 Dose: 200 mls/hr Sodium Chloride (Sodium Chloride 0.9%) 1,000 mls @ 100 mls/hr IV .Q10H [facility] Last Admin: 01/19/18 12:34 Dose: Not Given Ibuprofen (Motrin Tab) 400 mg PO Q6H PRN PRN Reason: Pain, Mild (1-3) Lisinopril (Zestril) 20 mg PO DAILY [facility] Last Admin: 01/19/18 09:40 Dose: 20 mg Rosuvastatin Calcium (Crestor) 10 mg PO HS [facility] Last Admin: 01/19/18 22:14 Dose: 10 mg Saccharomyces Boulardii (Florastor) 250 mg PO BID [facility] Last Admin: 01/19/18 17:37 Dose: 250 mg - Labs Labs: 01/19/18 08:41 01/19/18 08:41 Assessment and Plan (1) Gram negative sepsis Assessment & Plan: BLOOD CULTURES 01/14/18 GREW PSEUDOMONAS-AERUGINOSA blood cultures repeat 01/17/18 2:2 SETS GRAM-NEGATIVE RODS. CONTINUE iv CEFEPIME 2 G EVERY 8 HOURLY FOR NOW. S/P JUNG CATH REMOVAL 01/18/18 BY SURGERY. F/U CHITO ON SATURDAY WITH CARDIOLOGY. Status: Acute (2) Leukocytosis (leucocytosis) Assessment & Plan: IMPROVING oN iv ANTIBIOTICS. Status: Acute (3) Hypertension Status: Acute
[2018-01-20] MEDS: Sodium Chloride 0.9% 1,000 ML IV SCH ×4 (00:45→17:38)
[2018-01-20] MEDS: Cefepime IV 2 gm in Dextrose 2 GM/100 ML BAG IVPB SCH ×4 (04:08→22:00)
[2018-01-20 07:02] LABS: INR 1.1; PROTHROMBIN TIME 12.4 SECONDS (9.7-12.2)
[2018-01-20 07:04] LABS: BASO # 0.1 K/uL (0.0-0.2); BASO % 0.8 % (0.0-2.0); EOS # 0.1 K/uL (0.0-0.7); EOS % 1.2 % (0.0-4.0); LYMPH # 3.1 K/uL (1.0-4.3); LYMPH % 29.3 % (20.0-40.0); MEAN CELL VOLUME 91.2 fL (81.0-99.0); MEAN CORPUSCULAR HEMOGLOBIN 31.3 pg (27.0-31.0); MEAN CORPUSCULAR HGB CONC 34.3 g/dL (33.0-37.0); MEAN PLATELET VOLUME 7.7 fL (7.2-11.7); MONO # 1.1 K/uL (0.0-0.8); MONO % 10.7 % (0.0-10.0); NEUT # 6.2 K/uL (1.8-7.0); NRBC % 0.1 % (0.0-2.0); RBC 3.53 Mil/uL (3.80-5.20); RED CELL DISTRIBUTION WIDTH 13.6 % (11.5-14.5); WHITE BLOOD COUNT 10.7 K/uL (4.8-10.8)
[2018-01-20 07:24] LABS: ALB/GLOB RATIO 1.3 (1.0-2.1); ALBUMIN 3.9 g/dL (3.5-5.0); ALT/SGPT 71 U/L (9-52); AST/SGOT 33 U/L (14-36); BLOOD UREA NITROGEN 9 mg/dL (7-17); CALCIUM 9.6 mg/dl (8.6-10.4); GFR AFRICAN-AMERICAN > 60; GFR NON-AFRICAN AMERICAN > 60
--- NOTE | 2018-01-20 07:49 | CP.PCM.PN ---
<Bahman Gorman - Last Filed: 01/20/18 14:58> Subjective - Date & Time of Evaluation Date of Evaluation: 01/20/18 Time of Evaluation: 07:48 - Subjective Subjective: Medicine note for hospitalists service The patient was lying comfortably on their bed. Patient denied any complaints or any pain and states that she did not have any breakfast because she is NPO for her CHITO. She states that she has had regular bowel movements with the last one being this morning. Her keli cath was removed this morning and she reports tenderness only to palpation. Pt denies chest pain, nausea/vomitting, dizziness , SOB or calf pain. Objective - Vital Signs/Intake and Output Vital Signs (last 24 hours): Temp Pulse Resp BP Pulse Ox 98.3 F 64 20 123/67 96 01/20/18 06:45 01/20/18 06:45 01/20/18 06:45 01/20/18 06:45 01/20/18 06:45 Intake and Output: 01/20/18 01/20/18 06:59 18:59 Intake Total 1280 Balance 1280 - Medications Medications: Current Medications Escitalopram Oxalate (Lexapro) 20 mg PO DAILY [facility] Last Admin: 01/19/18 09:40 Dose: 20 mg Famotidine (Pepcid) 20 mg PO DAILY [facility] Last Admin: 01/19/18 09:40 Dose: 20 mg Heparin Sodium (Porcine) (Heparin) 5,000 units SC Q8 [facility] Stop: 01/22/18 23:59 Last Admin: 01/20/18 06:15 Dose: Not Given Hydrochlorothiazide (Microzide) 12.5 mg PO DAILY [facility] Last Admin: 01/19/18 09:40 Dose: 12.5 mg Cefepime HCl (Maxipime Iv 2 Gm Premix) 2 gm in 100 mls @ 200 mls/hr IVPB Q8H [facility] PRN Reason: Protocol Stop: 01/21/18 13:01 Last Admin: 01/20/18 04:08 Dose: 200 mls/hr Sodium Chloride (Sodium Chloride 0.9%) 1,000 mls @ 100 mls/hr IV .Q10H [facility] Last Admin: 01/20/18 00:45 Dose: 100 mls/hr Ibuprofen (Motrin Tab) 400 mg PO Q6H PRN PRN Reason: Pain, Mild (1-3) Lisinopril (Zestril) 20 mg PO DAILY [facility] Last Admin: 01/19/18 09:40 Dose: 20 mg Rosuvastatin Calcium (Crestor) 10 mg PO HS [facility] Last Admin: 01/19/18 22:14 Dose: 10 mg Saccharomyces Boulardii (Florastor) 250 mg PO BID [facility] Last Admin: 01/19/18 17:37 Dose: 250 mg - Labs Labs: 01/20/18 06:38 01/20/18 06:38 PT 12.4 SECONDS (9.7-12.2) H 01/20/18 06:38 INR 1.1 01/20/18 06:38 APTT 32 SECONDS (21-34) 01/20/18 06:38 - Constitutional Appears: Well, Non-toxic, No Acute Distress - Head Exam Head Exam: ATRAUMATIC, NORMOCEPHALIC - Eye Exam Eye Exam: EOMI, Normal appearance. absent: Scleral icterus - ENT Exam ENT Exam: Mucous Membranes Moist - Respiratory Exam Respiratory Exam: Chest Wall Tenderness (port a cath site), Clear to Ausculation Bilateral, NORMAL BREATHING PATTERN. absent: Rales, Rhonchi, Wheezes - Cardiovascular Exam Cardiovascular Exam: RRR, +S1, +S2. absent: Murmur - GI/Abdominal Exam GI & Abdominal Exam: Normal Bowel Sounds. absent: Soft, Tenderness - Extremities Exam Extremities Exam: absent: Calf Tenderness, Joint Swelling, Pedal Edema - Back Exam Back Exam: NORMAL INSPECTION - Neurological Exam Neurological Exam: Alert, Awake, Normal Gait, Oriented x3 Neuro motor strength exam: Left Upper Extremity: 5, Right Upper Extremity: 5, Left Lower Extremity: 5, Right Lower Extremity: 5 - Psychiatric Exam Psychiatric exam: Normal Affect, Normal Mood - Skin Skin Exam: Normal Color, Warm. absent: Erythema, Pallor Assessment and Plan - Assessment and Plan (Free Text) Assessment: 67 yo Female with a PMH of R Invasive ductal ca, depression and HTN admitted on 01/14 for fevers and chill during medication infusion via port-a-cath at infusion center, blood cultures growing gram neg rods. Plan: SIRS (systemic inflammatory response syndrome) -On admission: tachycardic with elevated WBC - source of infection : Blood culture growing gram neg pili -WBC 13 -ESR 63 -ProCalcitonin 24.15 up from 17 on admission -CRP 152.9 -Lactate 1.7 on admission -CXR: 01/15- mild pulmonary vasc congestion limited study due to body habitus -urine culture:neg -wound culture: neg -ID, DrVitaliy consulted help appreciated: r/o viral syndrome/drugfever/chemo induced fever -Sx Dr. Riojas consulted: help appreciated - in order to r/o infection of port ( recent placement on 12/20/17) -f/u CT chest,abd,pelvis - Medications: * NS@100CC/HR * Cefepime 2g in 100ml q8hrs * Florastor 250mg PO BID * Motrin 400mg PO Q6H PRN for fever>100.4 Chest Tightness -CHITO 01/20/2018: no vegetations -D-Dimer: elevated 1522 -CT angio-Neg for PE -ANTIONE neg x3 -EKG -NSR with nonspecific t wave changes neg x 3 -Venous doppler neg for DVT Pericardial Effusion -echo from 01/11: mild-mod pericardial effusion, EF 50% -Dr. Galan cardiology consult help appreciated -CHITO 01/20/2018: no vegetations Invasive ductal carcinoma of right breast, stage 3 -Dr Fox, Heme/Onc, consulted help appreciated : -Pathology result (11/26/17): * Right invasive ductal carcinoma Grade 3 with right axilla lymph node -Currently chemotherapy ( Started 12/26/17) -Left Port-a-cath placed 12/20/17 Hypertension controlled -lsinopril 20mg PO daily -HCTZ 12.5mg PO daily -low sodium diet Depression Escitalopram 20mg PO QD PPX -GI: Pepcid 20mg PO QD -DVT: Heparin 5,000 units SC Q8H, SCDs -Heart Healthy Diet -PT/OT <Donavan Sauer - Last Filed: 01/20/18 20:51> Objective - Vital Signs/Intake and Output Vital Signs (last 24 hours): Temp Pulse Resp BP Pulse Ox 97.3 F L 74 20 143/84 97 01/20/18 15:00 01/20/18 15:00 01/20/18 15:00 01/20/18 15:00 01/20/18 15:00 Intake and Output: 01/20/18 01/21/18 18:59 06:59 Intake Total 600 Balance 600 - Medications Medications: Current Medications Escitalopram Oxalate (Lexapro) 20 mg PO DAILY [facility] Last Admin: 01/20/18 11:06 Dose: Not Given Famotidine (Pepcid) 20 mg PO DAILY [facility] Last Admin: 01/20/18 11:06 Dose: Not Given Heparin Sodium (Porcine) (Heparin) 5,000 units SC Q8 [facility] Stop: 01/22/18 23:59 Last Admin: 01/20/18 14:00 Dose: Not Given Hydrochlorothiazide (Microzide) 12.5 mg PO DAILY [facility] Last Admin: 01/20/18 15:50 Dose: 12.5 mg Cefepime HCl (Maxipime Iv 2 Gm Premix) 2 gm in 100 mls @ 200 mls/hr IVPB Q8H [facility] PRN Reason: Protocol Stop: 01/21/18 13:01 Last Admin: 01/20/18 15:51 Dose: 200 mls/hr Ibuprofen (Motrin Tab) 400 mg PO Q6H PRN PRN Reason: Pain, Mild (1-3) Lisinopril (Zestril) 20 mg PO DAILY [facility] Last Admin: 01/20/18 15:51 Dose: 20 mg Rosuvastatin Calcium (Crestor) 10 mg PO HS [facility] Last Admin: 01/19/18 22:14 Dose: 10 mg Saccharomyces Boulardii (Florastor) 250 mg PO BID [facility] Last Admin: 01/20/18 17:32 Dose: 250 mg - Labs Labs: 01/20/18 06:38 01/20/18 06:38 PT 12.4 SECONDS (9.7-12.2) H 01/20/18 06:38 INR 1.1 01/20/18 06:38 APTT 32 SECONDS (21-34) 01/20/18 06:38 Attending/Attestation - Attestation I have personally seen and examined this patient.: Yes I have fully participated in the care of the patient.: Yes I have reviewed all pertinent clinical information, including history, physical exam and plan: Yes Notes (Text): 01/20/18 20:43 Patient was seen and examined at 5:30 PM 01/20/18 657 B Exam, assessment and plan were gone over with the resident. Also on ROS: Headache bifrontal this morning Moved bowels normally this morning NO other complaints upon FULL ROS HEENT, Cardio, Respiratory, GI, Ext, CN II through XII were uremarkable CHITO performed by Dr. Galan 01/20/18 showed NO vegetations with normal EF Port A Cath was removed on 01/18/18 and culture shows Gram Negative Rods Blood through Central Line Culture 01/17/18 shows Pseudomonas Blood Culture 01/14/18 shows Pseudomonas Patient is currently on Cefepime 2 gm IV Q8H and we will have to follow up the sensitivities on the culture results F/U repeat Blood Culture from 01/19/18. There is a 1.7 cm RUL subpleural nodule see on CT Angio Chest. Consider IR FNA Bx of this as an outpatient once patient's bacteremia has resolved. Donavan Sauer D.O.
[2018-01-20] MEDS: Saccharomyces Boulardi 250 mg Cap PO SCH ×2 (11:05→17:32)
[2018-01-20] MEDS ORDERED: Lidocaine 4% (Laryng-O-Jet) Kit MM ONE (12:31)
[2018-01-20] MEDS ORDERED: Etomidate 20 mg/10ml Inj IV ONE ×2 (12:56→13:31)
[2018-01-20] MEDS ORDERED: Midazolam 2 MG/2 ML VIAL ONE (12:57)
[2018-01-20] MEDS ORDERED: Phenylephrine 10 mg/ml Inj ONE (13:01)
--- NOTE | 2018-01-20 13:02 | CP.PCM.PN ---
Subjective - Date & Time of Evaluation Date of Evaluation: 01/20/18 Time of Evaluation: 06:25 - Subjective Subjective: General Surgery Progress Note for Dr. Riojas Patient was seen and examined today at bedside in no acute distress. Patient states that she still has some pain at the surgical site but otherwise denies pain, f/c, n/v, c/d, CP, SOB. Objective - Vital Signs/Intake and Output Vital Signs (last 24 hours): Temp Pulse Resp BP Pulse Ox 98.1 F 66 20 136/76 97 01/20/18 07:00 01/20/18 07:00 01/20/18 07:00 01/20/18 07:00 01/20/18 07:00 Intake and Output: 01/20/18 01/20/18 06:59 18:59 Intake Total 1280 Balance 1280 - Medications Medications: Current Medications Escitalopram Oxalate (Lexapro) 20 mg PO DAILY [facility] Last Admin: 01/20/18 11:06 Dose: Not Given Famotidine (Pepcid) 20 mg PO DAILY [facility] Last Admin: 01/20/18 11:06 Dose: Not Given Heparin Sodium (Porcine) (Heparin) 5,000 units SC Q8 [facility] Stop: 01/22/18 23:59 Last Admin: 01/20/18 06:15 Dose: Not Given Hydrochlorothiazide (Microzide) 12.5 mg PO DAILY [facility] Last Admin: 01/20/18 11:06 Dose: Not Given Cefepime HCl (Maxipime Iv 2 Gm Premix) 2 gm in 100 mls @ 200 mls/hr IVPB Q8H [facility] PRN Reason: Protocol Stop: 01/21/18 13:01 Last Admin: 01/20/18 04:08 Dose: 200 mls/hr Sodium Chloride (Sodium Chloride 0.9%) 1,000 mls @ 100 mls/hr IV .Q10H [facility] Last Admin: 01/20/18 11:06 Dose: Not Given Ibuprofen (Motrin Tab) 400 mg PO Q6H PRN PRN Reason: Pain, Mild (1-3) Lisinopril (Zestril) 20 mg PO DAILY [facility] Last Admin: 01/20/18 11:06 Dose: Not Given Rosuvastatin Calcium (Crestor) 10 mg PO HS [facility] Last Admin: 01/19/18 22:14 Dose: 10 mg Saccharomyces Boulardii (Florastor) 250 mg PO BID [facility] Last Admin: 01/20/18 11:05 Dose: Not Given - Labs Labs: 01/20/18 06:38 01/20/18 06:38 PT 12.4 SECONDS (9.7-12.2) H 01/20/18 06:38 INR 1.1 01/20/18 06:38 APTT 32 SECONDS (21-34) 01/20/18 06:38 - Constitutional Appears: Non-toxic, No Acute Distress - Head Exam Head Exam: ATRAUMATIC, NORMOCEPHALIC - Eye Exam Eye Exam: EOMI, Normal appearance - ENT Exam ENT Exam: Mucous Membranes Moist, Normal Exam - Respiratory Exam Respiratory Exam: Clear to Ausculation Bilateral, NORMAL BREATHING PATTERN. absent: Rales, Rhonchi, Respiratory Distress - Cardiovascular Exam Cardiovascular Exam: REGULAR RHYTHM, +S1, +S2. absent: Murmur - GI/Abdominal Exam GI & Abdominal Exam: Soft, Normal Bowel Sounds. absent: Tenderness - Neurological Exam Neurological Exam: Alert, Awake, Oriented x3 - Psychiatric Exam Psychiatric exam: Normal Affect, Normal Mood - Skin Skin Exam: Dry, Normal Color, Warm Additional comments: incision c/d/i Assessment and Plan - Assessment and Plan (Free Text) Plan: Assessment: 67yoF s/p portacath removal POD 2 Plan: - tolerating pain well on PO Motrin, cont - WBC down trending - 10.7 today - f/u OR Cx, preliminary gram stains gram neg rods, prob pseudomonas - f/u ECHO r/o endocarditis to be done this PM (01/20) - cont IV abx per ID - further recs per Dr. Riojas
--- NOTE | 2018-01-20 18:10 | CP.PCM.PN ---
Subjective - Date & Time of Evaluation Date of Evaluation: 01/20/18 Time of Evaluation: 17:46 - Subjective Subjective: The patient c/o some fatigue, some pain at port removal site, otherwise asymptomatic. S/P port removal, showing pseudomonas in both blood cultures, from port and blood. Plan- Duration of antibiotics to be determined by ID. Repeat CAT scan of chest ? prior to discharge or as outpatient. Above discussed with patient Objective - Vital Signs/Intake and Output Vital Signs (last 24 hours): Temp Pulse Resp BP Pulse Ox 97.3 F L 74 20 143/84 97 01/20/18 15:00 01/20/18 15:00 01/20/18 15:00 01/20/18 15:00 01/20/18 15:00 Intake and Output: 01/20/18 01/20/18 06:59 18:59 Intake Total 1280 600 Balance 1280 600 - Medications Medications: Current Medications Escitalopram Oxalate (Lexapro) 20 mg PO DAILY [facility] Last Admin: 01/20/18 11:06 Dose: Not Given Famotidine (Pepcid) 20 mg PO DAILY [facility] Last Admin: 01/20/18 11:06 Dose: Not Given Heparin Sodium (Porcine) (Heparin) 5,000 units SC Q8 [facility] Stop: 01/22/18 23:59 Last Admin: 01/20/18 14:00 Dose: Not Given Hydrochlorothiazide (Microzide) 12.5 mg PO DAILY [facility] Last Admin: 01/20/18 15:50 Dose: 12.5 mg Cefepime HCl (Maxipime Iv 2 Gm Premix) 2 gm in 100 mls @ 200 mls/hr IVPB Q8H [facility] PRN Reason: Protocol Stop: 01/21/18 13:01 Last Admin: 01/20/18 15:51 Dose: 200 mls/hr Ibuprofen (Motrin Tab) 400 mg PO Q6H PRN PRN Reason: Pain, Mild (1-3) Lisinopril (Zestril) 20 mg PO DAILY [facility] Last Admin: 01/20/18 15:51 Dose: 20 mg Rosuvastatin Calcium (Crestor) 10 mg PO HS [facility] Last Admin: 01/19/18 22:14 Dose: 10 mg Saccharomyces Boulardii (Florastor) 250 mg PO BID [facility] Last Admin: 08/06/18 17:32 Dose: 250 mg - Labs Labs: 01/20/18 06:38 01/20/18 06:38 PT 12.4 SECONDS (9.7-12.2) H 01/20/18 06:38 INR 1.1 01/20/18 06:38 APTT 32 SECONDS (21-34) 01/20/18 06:38 Assessment and Plan (1) Breast cancer Status: Acute
--- NOTE | 2018-01-20 18:54 | CP.PCM.PN ---
Subjective - Date & Time of Evaluation Date of Evaluation: 01/20/18 Time of Evaluation: 18:53 - Subjective Subjective: Patient s/p CHITO No evidence of Endocarditis Small pericardial effusion Normal EF Objective - Vital Signs/Intake and Output Vital Signs (last 24 hours): Temp Pulse Resp BP Pulse Ox 97.3 F L 74 20 143/84 97 01/20/18 15:00 01/20/18 15:00 01/20/18 15:00 01/20/18 15:00 01/20/18 15:00 Intake and Output: 01/20/18 01/20/18 06:59 18:59 Intake Total 1280 600 Balance 1280 600 - Medications Medications: Current Medications Escitalopram Oxalate (Lexapro) 20 mg PO DAILY [facility] Last Admin: 01/20/18 11:06 Dose: Not Given Famotidine (Pepcid) 20 mg PO DAILY [facility] Last Admin: 01/20/18 11:06 Dose: Not Given Heparin Sodium (Porcine) (Heparin) 5,000 units SC Q8 [facility] Stop: 01/22/18 23:59 Last Admin: 01/20/18 14:00 Dose: Not Given Hydrochlorothiazide (Microzide) 12.5 mg PO DAILY [facility] Last Admin: 01/20/18 15:50 Dose: 12.5 mg Cefepime HCl (Maxipime Iv 2 Gm Premix) 2 gm in 100 mls @ 200 mls/hr IVPB Q8H [facility] PRN Reason: Protocol Stop: 01/21/18 13:01 Last Admin: 01/20/18 15:51 Dose: 200 mls/hr Ibuprofen (Motrin Tab) 400 mg PO Q6H PRN PRN Reason: Pain, Mild (1-3) Lisinopril (Zestril) 20 mg PO DAILY [facility] Last Admin: 01/20/18 15:51 Dose: 20 mg Rosuvastatin Calcium (Crestor) 10 mg PO HS [facility] Last Admin: 01/19/18 22:14 Dose: 10 mg Saccharomyces Boulardii (Florastor) 250 mg PO BID [facility] Last Admin: 01/20/18 17:32 Dose: 250 mg - Labs Labs: 01/20/18 06:38 01/20/18 06:38 PT 12.4 SECONDS (9.7-12.2) H 01/20/18 06:38 INR 1.1 01/20/18 06:38 APTT 32 SECONDS (21-34) 01/20/18 06:38
--- NOTE | 2018-01-20 19:02 | CP.PCM.PN ---
Subjective - Date & Time of Evaluation Date of Evaluation: 01/20/18 Time of Evaluation: 19:02 - Subjective Subjective: CHIEF COMPLAINTS TODAY : afebrile. c/o mild pain and postoperative site. S/P LT.CHEST WALL JUNG-CATH REMOVAL 01/18/18 S/P CHITO 01/20/18 -VE ENDOCARDITIS ,EF -N, small pericardial effusion. ROS. HEENT : N. Resp : No cough, wheezing ,pleuritic CP ,or hemoptysis Cardio : No anginal CP, PND, orthopnea, palpitation GI : No abd.pain, n/v ,diarrhea or GI bleeding . DENTISTRY PROFESSOR : No headache, vertigo, focal deficit. Musculoskel : No joint swelling , Derm : LT. CHEST WALL-S/P pORT-a-cATH REMOVAL, mild erythema around the site. Psych : Normal affect. Ext : No swelling ,calf pain PE. Pt. is alert awake in no distress. V.S As noted in the chart Head ,ear nose,throat and eyes : Normal. Neck : Supple with normal carotids. Lungs: Clear air entry. Heart : S1 & S2 normal with S4. No murmur. Abd : Soft non tender with normal bowel sounds. Neuro : Moves all ext. with no localized deficit. Ext : No edema with intact pulses.Non tender calves Derm : No rashes or decubitus ulcer. .LT. CHEST WALL, MILD TENDERNESS ON PALPATION, S/P REMOVAL PORT CATH. AREA AROUND decreasing cellulitis. LABS/RADIOLOGY: wbc 10.7, h&h STABLE lftS IMPROVING. 2D ECHO; small pericardial effusion, no definite vegetations seen. BLOOD CULTURES- 01/14/18 1:2 SETS -PSEUDOMONAS-AERUGINOSA BLOOD CULTURES 01/17/18 GNR 2:2 SETS - pending identification WOUND CULTURE pORT-a-cATH SITE 01/18/18 +VE GNR. REPEAT BLOOD CULTURES 01/19/18 X 24 HOURS. Objective - Vital Signs/Intake and Output Vital Signs (last 24 hours): Temp Pulse Resp BP Pulse Ox 97.3 F L 74 20 143/84 97 01/20/18 15:00 01/20/18 15:00 01/20/18 15:00 01/20/18 15:00 01/20/18 15:00 Intake and Output: 01/20/18 01/21/18 18:59 06:59 Intake Total 600 Balance 600 - Medications Medications: Current Medications Escitalopram Oxalate (Lexapro) 20 mg PO DAILY [facility] Last Admin: 01/20/18 11:06 Dose: Not Given Famotidine (Pepcid) 20 mg PO DAILY [facility] Last Admin: 01/20/18 11:06 Dose: Not Given Heparin Sodium (Porcine) (Heparin) 5,000 units SC Q8 [facility] Stop: 01/22/18 23:59 Last Admin: 01/20/18 14:00 Dose: Not Given Hydrochlorothiazide (Microzide) 12.5 mg PO DAILY [facility] Last Admin: 01/20/18 15:50 Dose: 12.5 mg Cefepime HCl (Maxipime Iv 2 Gm Premix) 2 gm in 100 mls @ 200 mls/hr IVPB Q8H [facility] PRN Reason: Protocol Stop: 01/21/18 13:01 Last Admin: 01/20/18 15:51 Dose: 200 mls/hr Ibuprofen (Motrin Tab) 400 mg PO Q6H PRN PRN Reason: Pain, Mild (1-3) Lisinopril (Zestril) 20 mg PO DAILY [facility] Last Admin: 01/20/18 15:51 Dose: 20 mg Rosuvastatin Calcium (Crestor) 10 mg PO HS [facility] Last Admin: 01/19/18 22:14 Dose: 10 mg Saccharomyces Boulardii (Florastor) 250 mg PO BID [facility] Last Admin: 01/20/18 17:32 Dose: 250 mg - Labs Labs: 01/20/18 06:38 01/20/18 06:38 PT 12.4 SECONDS (9.7-12.2) H 01/20/18 06:38 INR 1.1 01/20/18 06:38 APTT 32 SECONDS (21-34) 01/20/18 06:38 Assessment and Plan (1) Gram negative sepsis Assessment & Plan: BLOOD CULTURES 01/14/18 GREW PSEUDOMONAS-AERUGINOSA blood cultures repeat 01/17/18 2:2 SETS GRAM-NEGATIVE RODS. WOUND CULTURES 01/18/18 pORT-a-cATH SITE--GRAM-NEGATIVE RODS. CHITO 01/20/18 -VE FOR ENDOCARDITIS. F/U REPEAT BLOOD CULTURES 01/19/18 X 72 HOURS IF REMAINS NEGATIVE - wILL CONSIDER PATIENT TO BE SWITCHED TO BY MOUTH CIPRO 750 MG EVERY 12 HOURLY X 14 DAYS. FOR NOW CONTINUE iv CEFEPIME 2 G EVERY 8 HOURLY FOR NOW. CASE DISCUSSED WITH ONCOLOGIST DR WOOD. PATIENT FOR REPEAT cat SCAN OF THE CHEST PRIOR TO DISCHARGE CONCERN FOR METASTATIC DISEASE IN LUNGS. Status: Acute (2) Leukocytosis (leucocytosis) Status: Acute (3) Hypertension Status: Acute
--- NOTE | 2018-01-20 20:58 | CARD ---
APPROVED REPORT EKG Measurement Heart [id number] <Conclusion> Normal sinus rhythm with sinus arrhythmia Nonspecific T wave abnormality Abnormal ECG
--- NOTE | 2018-01-20 21:04 | CARD ---
APPROVED REPORT EKG Measurement Heart [id number] <Conclusion> Normal sinus rhythm Nonspecific T wave abnormality Abnormal ECG
--- NOTE | 2018-01-20 21:10 | CARD ---
APPROVED REPORT EKG Measurement Heart [id number] [id number] <Conclusion> Normal sinus rhythm Nonspecific T wave abnormality Abnormal ECG
--- NOTE | 2018-01-20 21:37 | OP ---
Copied To: Leonel Riojas MD Attending MD: Leonel Riojas MD PROCEDURE DATE: 01/18/2018 PREOPERATIVE DIAGNOSIS: Suspected infected Port-A-Cath. POSTOPERATIVE DIAGNOSIS: Suspected infected Port-A-Cath. PROCEDURE: Removal of left subclavian Port-A-Cath. SURGEON: Leonel Riojas MD COOKER TENDER: Dr. Pedraza. TYPE OF ANESTHESIA: Local with IV sedation. DESCRIPTION OF OPERATION: With the patient in the supine position, having received IV sedation, the left pectoral area was prepped and draped in the usual sterile manner. A grossly well-healed Port-A-Cath was identified. The skin overlying the insertion site was infiltrated with 1% lidocaine and the pocket was reopened. The catheter was dissected and delivered from the subclavian vein. The tip of the catheter was trimmed and placed in a Culturette for culture. The remainder of the reservoir was then sharply dissected free of the pocket and removed. The pocket site was swabbed as well for culture and 3 mL of normal saline were then instilled and then aspirated from the reservoir and also placed in a separate Culturette. The pocket site was examined for hemostasis and closure was performed with running subcuticular suture of 4-0 Monocryl and Steri-Strips. Dry sterile dressing was applied. The patient tolerated the procedure well and transferred to recovery room in stable condition. Estimated blood loss for the procedure was 2 mL. Leonel Riojas MD [facility]
[2018-01-21] MEDS: Cefepime IV 2 gm in Dextrose 2 GM/100 ML BAG IVPB SCH ×2 (05:07→13:23)
--- NOTE | 2018-01-21 07:42 | CP.PCM.PN ---
Subjective - Date & Time of Evaluation Date of Evaluation: 01/21/18 Time of Evaluation: 07:37 - Subjective Subjective: General Surgery Progress Note for Dr. Riojas Patient was seen and examined today at bedside in no acute distress. Patient states that she still has some pain at the surgical site but otherwise denies pain, f/c, n/v, c/d, CP, SOB. Objective - Vital Signs/Intake and Output Vital Signs (last 24 hours): Temp Pulse Resp BP Pulse Ox 98.4 F 74 20 117/55 L 95 01/20/18 23:35 01/21/18 05:21 01/20/18 23:35 01/20/18 23:35 01/20/18 23:35 - Medications Medications: Current Medications Escitalopram Oxalate (Lexapro) 20 mg PO DAILY [facility] Last Admin: 01/20/18 11:06 Dose: Not Given Famotidine (Pepcid) 20 mg PO DAILY [facility] Last Admin: 01/20/18 11:06 Dose: Not Given Heparin Sodium (Porcine) (Heparin) 5,000 units SC Q8 [facility] Stop: 01/22/18 23:59 Last Admin: 01/21/18 05:12 Dose: 5,000 units Hydrochlorothiazide (Microzide) 12.5 mg PO DAILY [facility] Last Admin: 01/20/18 15:50 Dose: 12.5 mg Cefepime HCl (Maxipime Iv 2 Gm Premix) 2 gm in 100 mls @ 200 mls/hr IVPB Q8H [facility] PRN Reason: Protocol Stop: 01/21/18 13:01 Last Admin: 01/21/18 05:07 Dose: 200 mls/hr Ibuprofen (Motrin Tab) 400 mg PO Q6H PRN PRN Reason: Pain, Mild (1-3) Lisinopril (Zestril) 20 mg PO DAILY [facility] Last Admin: 01/20/18 15:51 Dose: 20 mg Rosuvastatin Calcium (Crestor) 10 mg PO HS [facility] Last Admin: 01/20/18 22:15 Dose: 10 mg Saccharomyces Boulardii (Florastor) 250 mg PO BID [facility] Last Admin: 01/20/18 17:32 Dose: 250 mg - Labs Labs: 01/20/18 06:38 01/20/18 06:38 PT 12.4 SECONDS (9.7-12.2) H 01/20/18 06:38 INR 1.1 01/20/18 06:38 APTT 32 SECONDS (21-34) 01/20/18 06:38 - Constitutional Appears: Non-toxic, No Acute Distress - Head Exam Head Exam: ATRAUMATIC, NORMOCEPHALIC - Eye Exam Eye Exam: EOMI, Normal appearance - ENT Exam ENT Exam: Mucous Membranes Moist, Normal Exam - Respiratory Exam Respiratory Exam: Clear to Ausculation Bilateral, NORMAL BREATHING PATTERN. absent: Rales, Rhonchi - Cardiovascular Exam Cardiovascular Exam: REGULAR RHYTHM, +S1, +S2. absent: Murmur - GI/Abdominal Exam GI & Abdominal Exam: Soft, Normal Bowel Sounds. absent: Tenderness - Neurological Exam Neurological Exam: Alert, Awake, Oriented x3 - Psychiatric Exam Psychiatric exam: Normal Affect, Normal Mood - Skin Skin Exam: Dry, Intact, Normal Color, Warm Additional comments: incision c/d/i Assessment and Plan - Assessment and Plan (Free Text) Plan: Assessment: 67yoF s/p portacath removal POD 3 Plan: - analgesics prn - WBC downtrending. 9.6 today - OR Cx: pseudomonas sensitive to cefepime - f/u post-op repeat blood Cx, preliminary gram stains negative for growth @ 24hrs - CHITO (01/20) shows no evidence of endocarditis - cont IV abx per ID - further recs per Dr. Riojas - will cont to follow peripherally Clary Jacome PGY1
--- NOTE | 2018-01-21 08:26 | CP.PCM.PN ---
<Bahman Gorman - Last Filed: 01/21/18 15:13> Subjective - Date & Time of Evaluation Date of Evaluation: 01/21/18 Time of Evaluation: 10:00 - Subjective Subjective: Medicine note for hospitalists service Pt seen and examined at bedside. Pt reports feeling some sadness and wishes to go home. Pt understands that the blood cultures must show no growth for 48hrs prior to discharge. Pt reports no pains at the site of removed portacath. Pt denies Chest pain, sob, palpitations, dizziness, f/c, n/v, sweating, swelling in extremities. Pt understands she will have to follow up with heme/onc for replacement of new portacath. Objective - Vital Signs/Intake and Output Vital Signs (last 24 hours): Temp Pulse Resp BP Pulse Ox 98.2 F 77 20 103/61 97 01/21/18 07:00 01/21/18 07:00 01/21/18 07:00 01/21/18 07:00 01/21/18 07:00 - Medications Medications: Current Medications Escitalopram Oxalate (Lexapro) 20 mg PO DAILY [facility] Last Admin: 01/20/18 11:06 Dose: Not Given Famotidine (Pepcid) 20 mg PO DAILY [facility] Last Admin: 01/20/18 11:06 Dose: Not Given Heparin Sodium (Porcine) (Heparin) 5,000 units SC Q8 [facility] Stop: 01/22/18 23:59 Last Admin: 01/21/18 05:12 Dose: 5,000 units Hydrochlorothiazide (Microzide) 12.5 mg PO DAILY [facility] Last Admin: 01/20/18 15:50 Dose: 12.5 mg Cefepime HCl (Maxipime Iv 2 Gm Premix) 2 gm in 100 mls @ 200 mls/hr IVPB Q8H [facility] PRN Reason: Protocol Stop: 01/21/18 13:01 Last Admin: 01/21/18 05:07 Dose: 200 mls/hr Ibuprofen (Motrin Tab) 400 mg PO Q6H PRN PRN Reason: Pain, Mild (1-3) Lisinopril (Zestril) 20 mg PO DAILY [facility] Last Admin: 01/20/18 15:51 Dose: 20 mg Rosuvastatin Calcium (Crestor) 10 mg PO HS [facility] Last Admin: 01/20/18 22:15 Dose: 10 mg Saccharomyces Boulardii (Florastor) 250 mg PO BID [facility] Last Admin: 01/20/18 17:32 Dose: 250 mg - Labs Labs: 01/20/18 06:38 01/20/18 06:38 PT 12.4 SECONDS (9.7-12.2) H 01/20/18 06:38 INR 1.1 01/20/18 06:38 APTT 32 SECONDS (21-34) 01/20/18 06:38 Assessment and Plan - Assessment and Plan (Free Text) Assessment: 67 yo Female with a PMH of R Invasive ductal ca, depression and HTN admitted on 01/14 for fevers and chill during medication infusion via port-a-cath at infusion center, blood cultures growing gram neg rods 01/17. Plan: SIRS (systemic inflammatory response syndrome) -01/19 blood culture: 24hrs no growth, pending 48hr halley reading at 22:00 01/21 -On admission: tachycardic with elevated WBC - source of infection : Blood culture growing gram neg pili -WBC 9.6 -ESR 63 -ProCalcitonin 24.15 up from 17 on admission -CRP 152.9 -Lactate 1.7 on admission -CXR: 01/15- mild pulmonary vasc congestion limited study due to body habitus -urine culture:neg -wound culture: neg -ID, Dr, N Cecilio consulted help appreciated: r/o viral syndrome/drugfever/chemo induced fever -Sx Dr. Riojas consulted: help appreciated - in order to r/o infection of port ( recent placement on 12/20/17) -f/u CT chest,abd,pelvis - Medications: * NS@100CC/HR * Cefepime 2g in 100ml q8hrs * Florastor 250mg PO BID * Motrin 400mg PO Q6H PRN for fever>100.4 Chest Tightness -CHITO 01/20/2018: no vegetations -D-Dimer: elevated 1522 -CT angio-Neg for PE -ANTIONE neg x3 -EKG -NSR with nonspecific t wave changes neg x 3 -Venous doppler neg for DVT Pericardial Effusion -echo from 01/11: mild-mod pericardial effusion, EF 50% -Dr. Galan cardiology consult help appreciated -CHITO 01/20/2018: no vegetations Invasive ductal carcinoma of right breast, stage 3 -Dr Fox, Heme/Onc, consulted help appreciated : -Pathology result (11/26/17): * Right invasive ductal carcinoma Grade 3 with right axilla lymph node -Currently chemotherapy ( Started 12/26/17) -Left Port-a-cath placed 12/20/17, removed 01/20 Hypertension controlled -lsinopril 20mg PO daily -HCTZ 12.5mg PO daily -low sodium diet Depression Escitalopram 20mg PO QD PPX -GI: Pepcid 20mg PO QD -DVT: Heparin 5,000 units SC Q8H, SCDs -Heart Healthy Diet -PT/OT dispo: Pt to be d/c upon 48hr growth blood culture results at 22:00 if neg. <Anny Benedict V - Last Filed: 01/21/18 23:15> Objective - Vital Signs/Intake and Output Vital Signs (last 24 hours): Temp Pulse Resp BP Pulse Ox 98.7 F 90 20 108/62 95 01/21/18 15:05 01/21/18 16:00 01/21/18 15:05 01/21/18 15:05 01/21/18 15:05 - Medications Medications: Current Medications Escitalopram Oxalate (Lexapro) 20 mg PO DAILY [facility] Last Admin: 01/21/18 09:17 Dose: 20 mg Famotidine (Pepcid) 20 mg PO DAILY [facility] Last Admin: 01/21/18 09:17 Dose: 20 mg Heparin Sodium (Porcine) (Heparin) 5,000 units SC Q8 [facility] Stop: 01/22/18 23:59 Last Admin: 01/21/18 22:04 Dose: 5,000 units Hydrochlorothiazide (Microzide) 12.5 mg PO DAILY [facility] Last Admin: 01/21/18 09:17 Dose: Not Given Ibuprofen (Motrin Tab) 400 mg PO Q6H PRN PRN Reason: Pain, Mild (1-3) Lisinopril (Zestril) 20 mg PO DAILY [facility] Last Admin: 01/21/18 09:17 Dose: Not Given Rosuvastatin Calcium (Crestor) 10 mg PO HS [facility] Last Admin: 01/21/18 22:03 Dose: 10 mg Saccharomyces Boulardii (Florastor) 250 mg PO BID [facility] Last Admin: 01/21/18 17:31 Dose: 250 mg - Labs Labs: 01/21/18 08:27 01/21/18 08:27 PT 12.4 SECONDS (9.7-12.2) H 01/20/18 06:38 INR 1.1 01/20/18 06:38 APTT 32 SECONDS (21-34) 01/20/18 06:38 Attending/Attestation - Attestation I have personally seen and examined this patient.: Yes I have fully participated in the care of the patient.: Yes I have reviewed all pertinent clinical information, including history, physical exam and plan: Yes Notes (Text): Patient seen, examined and case discussed with day-time resident. Patient seen during rounds. Patient noting pain over port-a-cath is less. She is eager to go home. She understands that the repeat blood cultures should be negative for at least 48 hours. We will need to f/u with Dr. Hernandes to see if there is PO option for patient discharge planning. CHITO is negative for endocarditis. (1) SIRS (systemic inflammatory response syndrome) Bacteremia Infected Port-a Cath Assessment and Plan: * Criteria: leukocytosis, tachycardia source unclear if its related to port of cath or note * Risk: breast cancer on chemo, immunocomprised * Infectious Disease (Dr. Hernandes) on board-->help appreciated * Recommend for CHITO to rule out endocarditis since source is unclear and patient is having chills * I spoke with Dr. Terrazas and Dr. Galan; per Dr. Galan, can schedule for CHITO on Saturday, January 19-->will be an add on case for Saturday; recommends NPO no medications overnight * Patient s/p CHITO: no endocarditis. * Antibiotics: * Maxipime 2mg IVPB Q8 (active since 01/16/18) * Zosyn d/c (01/14-01/16/18) * Florastor 250mg PO BID * Infectious Disease (Dr. Hernandes) on board-->help appreciated * 01/14/18 Blood culture: Pseudomonas Aeruginosa * 01/14/18: Blood culture: No growth after 4 days * 01/14/18: Wound culture: no growth * 01/14/18: Urine culture: No growth * 01/17/18 Blood culture (Port a cath): Pseudomonas Aeruginosa X2 * 01/19/18: Blood culture: No growth after 48 hours * We will need f/u with ID for PO option for patient for discharge planning * General surgery (Dr. Riojas) on the case * Patient s/p Port-cath removal from 01/18/18 * f/u 1) catheter tip. 2) cavity fluid. 3) aspirate from reservoir * 01/17/18 Blood culture (Port a cath): Pseudomonas Aeruginosa X2 * Catheter tip cultur: no growth * Wound culture (01/18/18): Pseudomonas Aeruginosa X2 * White count downtrending; afebrile * Procalcitonin: 24.15 (01/15/18)---> 3/56 (01/19/18)---> f/u procalcitonin * Imaging: * CT Abdomen/pelvis (01/15/18): no acute abdominal or pelvic abnormality. Mild hepatomegaly and fatty liver. Small subcentimeter lesion in the left hepatic lobe is is too small to characterize. Sigmoid diverticulsosi without CT evidence of acute diverticulitis * CT angio (01/15/18): no Ct evidence of acute pulmonary embolism. Scattered pulmonary nodules. the largest subpleural nodule in the right upper lobve measures 1.7cm. Possible metastatic, but cannot ruled out septic embolic/fungal infections Status: Acute (2) Invasive ductal carcinoma of right breast, stage 3 Assessment and Plan: * Heme-Oncologist (Dr. Terrazas) on board-->help appreciated * Pathology result (11/26/17): Right invasive ductal carcinoma Grade 3 with right axilla lymph node * Patient has had one chemotherapy session and witnessed chills when port was accessed at outpatient * She has spoken with the patient with the abnormal lung findings; awaiting to see if port is the source of infectious prior to IR workup Status: Chronic (3) Hypertension Assessment and Plan: * HCTZ 12.5mg PO daily * Lisinopril 20mg PO daily * monitor vital signs Status: Chronic (4) Depression Assessment and Plan: * Lexapro 20mg PO daily Status: Chronic (5) Inspiratory pain Assessment and Plan: * D-dimer: elevated (given breast cancer hx) * CT angio (01/15/18): no Ct evidence of acute pulmonary embolism. Scattered pulmonary nodules. the largest subpleural nodule in the right upper lobve measures 1.7cm. Possible metastatic, but cannot ruled out septic embolic/fungal infections * Cardiac enzymes negative X3 Status: Resolved (6) Abnormal echocardiogram Pericardial Effusion Assessment and Plan: * Risk factor: on chemotherapuetic (cardio side efects) * Cardiology (Dr. Galan) on the case-->help appreciated * Echocardiogram (01/11/18): left ventricle is normal size, mild concentric left ventricular hypertrophy. EF: 50-55%, left atrium is mildly dilated. mitral regurgitation is mild. elevated right atrial pressure. mild to moderater anterior/posterior percardial effusion * Echocardiogram limited (01/17/18): small pericardial effusion. No definite vegetation seen, consider CHITO if clinically indicated * s/p CHITO (01/20/18): no endocarditis Status: Acute (7) Transaminitis Assessment and Plan: * possible acute phase reactant * Downtrending * CT Abdomen/pelvis (01/15/18): no acute abdominal or pelvic abnormality. Mild hepatomegaly and fatty liver. Small subcentimeter lesion in the left hepatic lobe is is too small to characterize. Sigmoid diverticulosis without CT evidence of acute diverticulitis Status: Acute (8) Lipid Disorder Assessment and Plan: * Crestor 10mg POqHS Status: Chronic (9) Prophylactic measure Assessment and Plan: * GI: Pepcid 20mg PO QDaily * heparin 5000 units subq8H * Florastor 250mg PO BID * PMD: Hemanth Aguilera * PT: home * OT: Home Disposition: * Follow-up with ID in regards to PO abx option upon discharge. Awaiting blood culture to be negative for at least 48 hours. * Patient will need to f/u with heme-onc and surgery upon discharge. Will need to f/u to place new port after completing antibiotic for infection from prior port-cath. * She will need further workup for pulmonary nodules via IR once infection has cleared * If patient is discharge, please fax summary to Veena Aguilera office.
[2018-01-21 08:39] LABS: BASO # 0.1 K/uL (0.0-0.2); BASO % 0.5 % (0.0-2.0); EOS # 0.1 K/uL (0.0-0.7); EOS % 1.1 % (0.0-4.0); LYMPH # 2.5 K/uL (1.0-4.3); LYMPH % 26.5 % (20.0-40.0); MEAN CELL VOLUME 90.7 fL (81.0-99.0); MEAN CORPUSCULAR HEMOGLOBIN 31.4 pg (27.0-31.0); MEAN CORPUSCULAR HGB CONC 34.6 g/dL (33.0-37.0); MEAN PLATELET VOLUME 7.6 fL (7.2-11.7); MONO # 0.8 K/uL (0.0-0.8); MONO % 7.9 % (0.0-10.0); NEUT # 6.1 K/uL (1.8-7.0); NRBC % 0.1 % (0.0-2.0); RBC 3.83 Mil/uL (3.80-5.20); RED CELL DISTRIBUTION WIDTH 13.5 % (11.5-14.5); WHITE BLOOD COUNT 9.6 K/uL (4.8-10.8)
[2018-01-21 09:07] LABS: ALB/GLOB RATIO 1.2 (1.0-2.1); ALBUMIN 4.2 g/dL (3.5-5.0); ALT/SGPT 64 U/L (9-52); AST/SGOT 32 U/L (14-36); BLOOD UREA NITROGEN 11 mg/dL (7-17); CALCIUM 9.9 mg/dl (8.6-10.4); GFR AFRICAN-AMERICAN > 60; GFR NON-AFRICAN AMERICAN > 60
[2018-01-21] MEDS: Saccharomyces Boulardi 250 mg Cap PO SCH ×2 (09:17→17:31)
--- NOTE | 2018-01-21 10:19 | CP.PCM.PN ---
<Mare Gomez - Last Filed: 01/21/18 17:52> Subjective - Date & Time of Evaluation Date of Evaluation: 01/21/18 Time of Evaluation: 10:18 - Subjective Subjective: Cardiology Progress Note - Dr Galan Patient seen and examined at bedside. Patient is s/p CHITO which was negative for vegetations and showed small pericardial effusion. Patient is doing well, offers no complaints at this time. States that she wants to go home. Denies chest pain or dyspnea. Objective - Vital Signs/Intake and Output Vital Signs (last 24 hours): Temp Pulse Resp BP Pulse Ox 98.2 F 77 20 103/61 97 01/21/18 07:00 01/21/18 07:00 01/21/18 07:00 01/21/18 07:00 01/21/18 07:00 - Medications Medications: Current Medications Escitalopram Oxalate (Lexapro) 20 mg PO DAILY [facility] Last Admin: 01/21/18 09:17 Dose: 20 mg Famotidine (Pepcid) 20 mg PO DAILY [facility] Last Admin: 01/21/18 09:17 Dose: 20 mg Heparin Sodium (Porcine) (Heparin) 5,000 units SC Q8 [facility] Stop: 01/22/18 23:59 Last Admin: 01/21/18 05:12 Dose: 5,000 units Hydrochlorothiazide (Microzide) 12.5 mg PO DAILY [facility] Last Admin: 01/21/18 09:17 Dose: Not Given Cefepime HCl (Maxipime Iv 2 Gm Premix) 2 gm in 100 mls @ 200 mls/hr IVPB Q8H [facility] PRN Reason: Protocol Stop: 01/21/18 13:01 Last Admin: 01/21/18 05:07 Dose: 200 mls/hr Ibuprofen (Motrin Tab) 400 mg PO Q6H PRN PRN Reason: Pain, Mild (1-3) Lisinopril (Zestril) 20 mg PO DAILY [facility] Last Admin: 01/21/18 09:17 Dose: Not Given Rosuvastatin Calcium (Crestor) 10 mg PO HS [facility] Last Admin: 01/20/18 22:15 Dose: 10 mg Saccharomyces Boulardii (Florastor) 250 mg PO BID [facility] Last Admin: 01/21/18 09:17 Dose: 250 mg - Labs Labs: 01/21/18 08:27 01/21/18 08:27 PT 12.4 SECONDS (9.7-12.2) H 01/20/18 06:38 INR 1.1 01/20/18 06:38 APTT 32 SECONDS (21-34) 01/20/18 06:38 - Constitutional Appears: Well, No Acute Distress - Head Exam Head Exam: ATRAUMATIC, NORMAL INSPECTION - Eye Exam Eye Exam: EOMI - ENT Exam ENT Exam: Mucous Membranes Moist - Neck Exam Neck Exam: Full ROM - Respiratory Exam Respiratory Exam: Clear to Ausculation Bilateral, NORMAL BREATHING PATTERN. absent: Rales, Rhonchi, Wheezes - Cardiovascular Exam Cardiovascular Exam: REGULAR RHYTHM, +S1, +S2 - GI/Abdominal Exam GI & Abdominal Exam: Soft. absent: Tenderness - Extremities Exam Extremities Exam: Normal Inspection. absent: Calf Tenderness - Neurological Exam Neurological Exam: Alert, Awake, Oriented x3 - Psychiatric Exam Psychiatric exam: Normal Affect, Normal Mood - Skin Skin Exam: Normal Color, Warm Assessment and Plan - Assessment and Plan (Free Text) Assessment: A/P: Patient is a 67 year old female PMH right invasive ductal carcinoma, hypertension, depression who comes to [facility] after experiencing chills and rigor at chemotherapy. Her left subclavian portacath was placed on 12/20/17, and she started chemotherapy on [place], 01/09/18. Her first session of chemo was uneventful. It was toward the end of her second chemotherapy session which she developed chills, fever, and rigor. Pericardial effusion -Stable, afebrile -Troponins negative x 3 -ECHO reviewed Normal EF 01/10/18), Small effusion -Repeat ECHO and CHITO showed stable small pericardial effusion -Will continue to monitor -Will recommend repeat echo in 3 months outpatient, if having worsening SOB return to ED -Plan discussed with Dr Galan Gram negative bacteremia -Leukocytosis resolved, afebrile -Procal trending down -S/P removal of subclavian portacath by general surgery -01/18 Body fluid and wound cultures growing gram negative rods, awaiting sensitivities -CHITO was negative for vegetations -01/17 Repeat blood cultures grew pseudomonas aeruginosa x 2 -01/19 Repeat blood cultures showing no growth x 24 hours -Continue antibiotics per ID -CT abd/pelvis diverticulosis with evidence of diverticulitis (see full report) -CT chest showed scatted pulmonary nodules (see full report) Hypertension -Continue Lisinopril 20mg PO daily -Continue HCTZ 12.5mg PO daily Mare Gomez DO PGY -2 <Garret Galan - Last Filed: 01/21/18 21:30> Objective - Vital Signs/Intake and Output Vital Signs (last 24 hours): Temp Pulse Resp BP Pulse Ox 98.7 F 90 20 108/62 95 01/21/18 15:05 01/21/18 16:00 01/21/18 15:05 01/21/18 15:05 01/21/18 15:05 - Medications Medications: Current Medications Escitalopram Oxalate (Lexapro) 20 mg PO DAILY [facility] Last Admin: 01/21/18 09:17 Dose: 20 mg Famotidine (Pepcid) 20 mg PO DAILY [facility] Last Admin: 01/21/18 09:17 Dose: 20 mg Heparin Sodium (Porcine) (Heparin) 5,000 units SC Q8 [facility] Stop: 01/22/18 23:59 Last Admin: 01/21/18 15:46 Dose: 5,000 units Hydrochlorothiazide (Microzide) 12.5 mg PO DAILY [facility] Last Admin: 01/21/18 09:17 Dose: Not Given Ibuprofen (Motrin Tab) 400 mg PO Q6H PRN PRN Reason: Pain, Mild (1-3) Lisinopril (Zestril) 20 mg PO DAILY [facility] Last Admin: 01/21/18 09:17 Dose: Not Given Rosuvastatin Calcium (Crestor) 10 mg PO HS [facility] Last Admin: 01/20/18 22:15 Dose: 10 mg Saccharomyces Boulardii (Florastor) 250 mg PO BID [facility] Last Admin: 01/21/18 17:31 Dose: 250 mg - Labs Labs: 01/21/18 08:27 01/21/18 08:27 PT 12.4 SECONDS (9.7-12.2) H 01/20/18 06:38 INR 1.1 01/20/18 06:38 APTT 32 SECONDS (21-34) 01/20/18 06:38 Assessment and Plan - Assessment and Plan (Free Text) Assessment: Patient seen and evaluated pesronally by me. Plan of care d/w the biomedical manager and as documented
--- NOTE | 2018-01-21 20:13 | CP.PCM.PN ---
Subjective - Date & Time of Evaluation Date of Evaluation: 01/21/18 Time of Evaluation: 20:13 - Subjective Subjective: CHIEF COMPLAINTS TODAY : afebrile. c/o mild pain and postoperative site. DECREASING ERYTHEMA AND TENDERNESS AT PORT CATH SITE LT CHEST WALL S/P LT.CHEST WALL JUNG-CATH REMOVAL 01/18/18 S/P CHITO 01/20/18 -VE ENDOCARDITIS , EF -N, small pericardial effusion. ROS. HEENT : N. Resp : No cough, wheezing ,pleuritic CP ,or hemoptysis Cardio : No anginal CP, PND, orthopnea, palpitation GI : No abd.pain, n/v ,diarrhea or GI bleeding . COMPREHENSIVE ADVISOR : No headache, vertigo, focal deficit. Musculoskel : No joint swelling , Derm : LT. CHEST WALL-S/P pORT-a-cATH REMOVAL, mild erythema around the site. Psych : Normal affect. Ext : No swelling ,calf pain PE. Pt. is alert awake in no distress. V.S As noted in the chart Head ,ear nose,throat and eyes : Normal. Neck : Supple with normal carotids. Lungs: Clear air entry. Heart : S1 & S2 normal with S4. No murmur. Abd : Soft non tender with normal bowel sounds. Neuro : Moves all ext. with no localized deficit. Ext : No edema with intact pulses.Non tender calves Derm : No rashes or decubitus ulcer. .LT. CHEST WALL, MILD TENDERNESS ON PALPATION, S/P REMOVAL PORT CATH. AREA AROUND decreasing cellulitis. LABS/RADIOLOGY: REVIEWED BLOOD CULTURES- 01/14/18 1:2 SETS -PSEUDOMONAS-AERUGINOSA BLOOD CULTURES 01/17/18 GNR 2:2 SETS -PSEUDOMONAS-AERUGINOSA WOUND CULTURE pORT-a-cATH SITE 01/18/18 +VE PSEUDOMONAS AERUGINOSA REPEAT BLOOD CULTURES 01/19/18 X 48HRS Objective - Vital Signs/Intake and Output Vital Signs (last 24 hours): Temp Pulse Resp BP Pulse Ox 98.7 F 90 20 108/62 95 01/21/18 15:05 01/21/18 16:00 01/21/18 15:05 01/21/18 15:05 01/21/18 15:05 - Medications Medications: Current Medications Escitalopram Oxalate (Lexapro) 20 mg PO DAILY [facility] Last Admin: 01/21/18 09:17 Dose: 20 mg Famotidine (Pepcid) 20 mg PO DAILY [facility] Last Admin: 01/21/18 09:17 Dose: 20 mg Heparin Sodium (Porcine) (Heparin) 5,000 units SC Q8 [facility] Stop: 01/22/18 23:59 Last Admin: 01/21/18 15:46 Dose: 5,000 units Hydrochlorothiazide (Microzide) 12.5 mg PO DAILY [facility] Last Admin: 01/21/18 09:17 Dose: Not Given Ibuprofen (Motrin Tab) 400 mg PO Q6H PRN PRN Reason: Pain, Mild (1-3) Lisinopril (Zestril) 20 mg PO DAILY [facility] Last Admin: 01/21/18 09:17 Dose: Not Given Rosuvastatin Calcium (Crestor) 10 mg PO HS [facility] Last Admin: 01/20/18 22:15 Dose: 10 mg Saccharomyces Boulardii (Florastor) 250 mg PO BID [facility] Last Admin: 01/21/18 17:31 Dose: 250 mg - Labs Labs: 01/21/18 08:27 01/21/18 08:27 PT 12.4 SECONDS (9.7-12.2) H 01/20/18 06:38 INR 1.1 01/20/18 06:38 APTT 32 SECONDS (21-34) 01/20/18 06:38 Assessment and Plan (1) Gram negative sepsis Assessment & Plan: CHITO 01/20/18 -VE FOR ENDOCARDITIS. F/U REPEAT BLOOD CULTURES 01/19/18 X 72 HOURS IF REMAINS NEGATIVE - WILL CONSIDER PATIENT TO BE SWITCHED TO BY MOUTH CIPRO 750 MG EVERY 12 HOURLY X 14 DAYS. F/U LFTS AND BMP IN AM. Status: Acute (2) Leukocytosis (leucocytosis) Assessment & Plan: IMPROVING Status: Resolved (3) Hypertension Status: Acute (4) Breast cancer, stage 3 Assessment & Plan: ? METASTATIC DISEASE. REPEAT CT CHEST PER ONCOLOGY. WILL DISCUSS WITH ONCOLOGY. Status: Acute
[2018-01-22] MEDS: Cefepime IV 2 gm in Dextrose 2 GM/100 ML BAG IVPB SCH ×3 (05:19→21:09)
--- NOTE | 2018-01-22 07:01 | CP.PCM.DIS ---
Provider - Provider Date of Admission: 01/14/18 18:33 Attending physician: Anny Benedict DO Time Spent in preparation of Discharge (in minutes): 45 Diagnosis - Discharge Diagnosis (1) Bacteremia Status: Resolved (2) Breast cancer Status: Chronic (3) Depression Status: Chronic (4) Fever Status: Resolved (5) Leukocytosis (leucocytosis) Status: Resolved Hospital Course - Lab Results Lab Results: Micro Results 01/19/18 22:00 Blood Blood Culture - Preliminary NO GROWTH AFTER 48 HOURS 01/19/18 21:30 Blood Blood Culture - Preliminary NO GROWTH AFTER 48 HOURS 01/18/18 09:02 Catheter Tip Catheter Tip Culture - Final No Growth 01/18/18 09:04 Other: Please Indicate Gram Stain - Final 01/18/18 09:04 Other: Please Indicate Body Fluid Culture - Final Pseudomonas Aeruginosa 01/18/18 09:04 Other: Please Indicate Gram Stain - Final 01/18/18 09:04 Other: Please Indicate Wound Culture - Final Pseudomonas Aeruginosa 01/14/18 18:00 Blood Blood Culture - Final NO GROWTH AFTER 5 DAYS 01/14/18 18:00 Blood Gram Stain - Final TEST NOT PERFORMED 01/17/18 12:40 Blood-Thru Central Line Blood Culture - Final Pseudomonas Aeruginosa 01/17/18 12:40 Blood-Thru Central Line Gram Stain - Final 01/17/18 12:10 Blood-Thru Central Line Blood Culture - Final Pseudomonas Aeruginosa 01/17/18 12:10 Blood-Thru Central Line Gram Stain - Final 01/14/18 17:30 Blood Blood Culture - Final Pseudomonas Aeruginosa 01/14/18 17:30 Blood Gram Stain - Final 01/14/18 18:58 Breast - Left Gram Stain - Final 01/14/18 18:58 Breast - Left Wound Culture - Final No Growth 01/14/18 Unknown Naris MRSA Culture (Admit) - Final MRSA NOT DETECTED 01/14/18 17:52 Urine Urine Culture - Final No Growth (<1,000 CFU/ML) Most Recent Lab Values WBC 9.6 K/uL (4.8-10.8) 01/21/18 08:27 RBC 3.83 Mil/uL (3.80-5.20) 01/21/18 08:27 Hgb 12.0 g/dL (11.0-16.0) 01/21/18 08:27 Hct 34.8 % (34.0-47.0) 01/21/18 08: MCV 90.7 fL (81.0-99.0) 01/21/18 08: MCH 31.4 pg (27.0-31.0) H 01/21/18 08: MCHC 34.6 g/dL (33.0-37.0) 01/21/18 08: RDW 13.5 % (11.5-14.5) 01/21/18 08: Plt Count 351 K/uL (130-400) 01/21/18 08: MPV 7.6 fL (7.2-11.7) 01/21/18 08: Neut % (Auto) 64.0 % (50.0-75.0) 01/21/18 08: Lymph % (Auto) 26.5 % (20.0-40.0) 01/21/18 08: [place] % (Auto) 7.9 % (0.0-10.0) 01/21/18 08: Eos % (Auto) 1.1 % (0.0-4.0) 01/21/18 08: Baso % (Auto) 0.5 % (0.0-2.0) 01/21/18 08: Neut # (Auto) 6.1 K/uL (1.8-7.0) 01/21/18 08: Lymph # (Auto) 2.5 K/uL (1.0-4.3) 01/21/18 08: [place] # (Auto) 0.8 K/uL (0.0-0.8) 01/21/18 08: Eos # (Auto) 0.1 K/uL (0.0-0.7) 01/21/18 08: Baso # (Auto) 0.1 K/uL (0.0-0.2) 01/21/18 08: Neutrophils % (Manual) 88 % (50-75) H 01/15/18 06:47 Band Neutrophils % 3 % (0-2) H 01/15/18 06:47 Lymphocytes % (Manual) 5 % (20-40) L 01/15/18 06:47 Reactive Lymphs % 1 % (0-0) H 01/15/18 06:47 Monocytes % (Manual) 3 % (0-10) 01/15/18 06:47 Toxic Granulation Present 01/15/18 06:47 Platelet Estimate Normal (NORMAL) 01/15/18 06:47 RBC Morphology Normal 01/14/18 17:52 Hypochromasia (manual) Slight 01/15/18 06:47 Poikilocytosis (manual Slight 01/15/18 06:47 Anisocytosis (manual) Slight 01/15/18 06:47 ESR 63 mm/hr (0-20) H 01/15/18 06:47 PT 12.4 SECONDS (9.7-12.2) H 01/20/18 06:38 INR 1.1 01/20/18 06:38 APTT 32 SECONDS (21-34) 01/20/18 06:38 D-Dimer, Quantitative 1522 ng/mlDDU (0-243) H 01/15/18 06:47 pO2 52 mm/Hg (30-55) 01/14/18 17:56 VBG pH 7.45 (7.32-7.43) H 01/14/18 17:56 VBG pCO2 30 mmHg (40-60) L 01/14/18 17:56 VBG HCO3 23.0 mmol/L 01/14/18 17:56 VBG Total CO2 21.8 mmol/L (22-28) L 01/14/18 17:56 VBG O2 Sat (Calc) 92.5 % (40-65) H 01/14/18 17:56 VBG Base Excess -2.1 mmol/L (0.0-2.0) L 01/14/18 17:56 VBG Potassium 3.1 mmol/L (3.6-5.2) L 01/14/18 17:56 Sodium 141.0 mmol/l (132-148) 01/14/18 17:56 Chloride 110.0 mmol/L (98-107) H 01/14/18 17:56 Glucose 188 mg/dl (65-105) H 01/14/18 17:56 Lactate 1.7 mmol/L (0.7-2.1) 01/14/18 17:56 Sodium 142 mmol/L (132-148) 01/21/18 08:27 Potassium 4.4 mmol/L (3.6-5.2) 01/21/18 08:27 Chloride 100 mmol/L (98-107) 01/21/18 08:27 Carbon Dioxide 25 mmol/L (22-30) 01/21/18 08:27 Anion Gap 21 (10-20) H 01/21/18 08:27 BUN 11 mg/dL (7-17) 01/21/18 08:27 Creatinine 0.6 mg/dL (0.7-1.2) L 01/21/18 08:27 Est GFR ( Amer) > 60 01/21/18 08:27 Est GFR (Non-Af Amer) > 60 01/21/18 08:27 Random Glucose 134 mg/dL (65-105) H 01/21/18 08:27 Calcium 9.9 mg/dl (8.6-10.4) 01/21/18 08:27 Phosphorus 3.2 mg/dL (2.5-4.5) 01/21/18 08:27 Magnesium 1.9 mg/dL (1.6-2.3) 01/21/18 08:27 Total Bilirubin 0.4 mg/dL (0.2-1.3) 01/21/18 08:27 AST 32 U/L (14-36) 01/21/18 08:27 ALT 64 U/L (9-52) H 01/21/18 08:27 Alkaline Phosphatase 97 U/L (38-126) 01/21/18 08:27 Total Creatine Kinase 131 U/L (30-135) 01/15/18 22:38 CK-MB (Mass) 2.95 ng/mL (0.0-3.38) 01/15/18 22:38 Troponin I < 0.0120 ng/mL (0.00-0.120) 01/15/18 22:38 C-Reactive Protein 152.90 mg/L (0.0-9.9) H 01/15/18 06:47 Total Protein 7.6 g/dL (6.3-8.3) 01/21/18 08:27 Albumin 4.2 g/dL (3.5-5.0) 01/21/18 08:27 Globulin 3.4 gm/dL (2.2-3.9) 01/21/18 08:27 Albumin/Globulin Ratio 1.2 (1.0-2.1) 01/21/18 08:27 Procalcitonin 3.56 NG/ML (0.19-0.49) H 01/19/18 08:41 Venous Blood Potassium 3.1 mmol/L (3.6-5.2) L 01/14/18 17:56 Urine Color Yellow (YELLOW) 01/14/18 17:52 Urine Clarity Clear (Clear) 01/14/18 17:52 Urine pH 5.0 (5.0-8.0) 01/14/18 17:52 Ur Specific [place] 1.011 (1.003-1.030) 01/14/18 17:52 Urine Protein Negative mg/dL (NEGATIVE) 01/14/18 17:52 Urine Glucose (UA) Normal mg/dL (Normal) 01/14/18 17:52 Urine Ketones Negative mg/dL (NEGATIVE) 01/14/18 17:52 Urine Blood Negative (NEGATIVE) 01/14/18 17:52 Urine Nitrate Negative (NEGATIVE) 01/14/18 17:52 Urine Bilirubin Negative (NEGATIVE) 01/14/18 17:52 Urine Urobilinogen Normal mg/dL (0.2-1.0) 01/14/18 17:52 Ur Leukocyte Esterase Neg [place]/uL (Negative) 01/14/18 17:52 Urine WBC (Auto) < 1 /hpf (0-5) 01/14/18 17:52 Ur Squamous Epith Cells < 1 /hpf (0-5) 01/14/18 17:52 - Hospital Course Hospital Course: CC: Rigor HPI: (History was obtained from patient and her daughter) Patient is a 67 year old female with history of 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 There was no loss of consciousness during this episode, but she was uncontrollably shaking. Patient had a L subclavian portacath insertion on 12/16/17 and started chemotherapy on 12/26; in the last week and a half the patient has been having intermittent fevers (subsiding with Tylenol). Previous Tmax of 103.3, but today's Tmax is 106. Patient admits to having a sick contact with her friend who also has cancer and has an infection, possibly bacteremia. During the encounter, patient admits to chest pain that worsens with inspiration , chills, fatigue, ringing in the ear, intermittent headache, taste in her mouth /altered gustatory sensation that has reduced her appetite, looser/more frequent stools ( with increase fiber and water intake), 3 pounds weight loss in the last 3 months, decrease activities. Patient denies palpitations, headache , shortness of breath, abdominal pain, nausea/vomiting, hematemesis, hematochezia, melena, leg swelling, bruising, bleeding and any travel since coming to the [place] in October. In the last week, soon after a bowel movement, patient had an episode of syncope that was witnessed by family members; she did not hit her head or back. Code Status: full code and Daughter is proxy PMD: Hemanth Aguilera Heme/Onco: Dr. 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 Lives with daughter. Denies current or former use of tobacco, ETOH and illicit drugs hospital course Pt presented on 01/14 after a febrile seizure at her chemo infusion center. Pt was admitted and started on IV vanc and zosyn to treat presumed bacteremia. Pt complained of pain at 4'oclock site of portacath. blood cultures grew pseudomonas on 01/17. sensitivity to Cipro, Cefepime, Gentamycin, Meropenem, Zosyn. Pt was switched to Cefepime on 01/16. Pt improved and on 01/20 her portacath was removed by sx. Pt was held until repeat blood cultures showed no growth for 72hrs. Pt to be discharged on PO cipro. Imaging 01/14-01/15 EKG x3: NSR 01/14Doppler Lower Ext: L peroneal valvular incompetence, no DVT 01/[address]: no PE, scattered pulm nodules likely mets 01/15 abd/pelv CT: sigmoid diverticulosis 01/18 echo: chronic mild pericardial effusion Discharge Exam - Head Exam Head Exam: ATRAUMATIC, NORMOCEPHALIC Discharge Plan - Follow Up Plan Condition: STABLE Disposition: HOME/ ROUTINE Instructions: Heart Healthy Diet, Sepsis, Adult (DC), Portacath Removal, Leukocytosis (DC), Leukocytosis (GEN)
[2018-01-22 08:14] LABS: ALB/GLOB RATIO 1.5 (1.0-2.1); ALBUMIN 4.3 g/dL (3.5-5.0); ALT/SGPT 84 U/L (9-52); AST/SGOT 43 U/L (14-36); BLOOD UREA NITROGEN 15 mg/dL (7-17); CALCIUM 10.1 mg/dl (8.6-10.4); GFR AFRICAN-AMERICAN > 60; GFR NON-AFRICAN AMERICAN > 60
[2018-01-22 08:19] LABS: BASO % 0.6 % (0.0-2.0); EOS # 0.1 K/uL (0.0-0.7); EOS % 1.3 % (0.0-4.0); HEMOGLOBIN 12.2 g/dL (11.0-16.0); LYMPH # 2.6 K/uL (1.0-4.3); LYMPH % 29.3 % (20.0-40.0); MEAN CELL VOLUME 91.2 fL (81.0-99.0); MEAN CORPUSCULAR HEMOGLOBIN 31.5 pg (27.0-31.0); MEAN CORPUSCULAR HGB CONC 34.6 g/dL (33.0-37.0); MEAN PLATELET VOLUME 7.5 fL (7.2-11.7); MONO # 0.9 K/uL (0.0-0.8); MONO % 10.5 % (0.0-10.0); NEUT # 5.1 K/uL (1.8-7.0); NEUT % 58.3 % (50.0-75.0); NRBC % 0.1 % (0.0-2.0); RBC 3.86 Mil/uL (3.80-5.20); RED CELL DISTRIBUTION WIDTH 13.8 % (11.5-14.5); WHITE BLOOD COUNT 8.8 K/uL (4.8-10.8)
[2018-01-22] MEDS: Saccharomyces Boulardi 250 mg Cap PO SCH ×2 (09:20→18:25)
--- NOTE | 2018-01-22 14:13 | CP.PCM.PN ---
<Mare Gomez - Last Filed: 01/22/18 16:28> Subjective - Date & Time of Evaluation Date of Evaluation: 01/22/18 Time of Evaluation: 14:12 - Subjective Subjective: Cardiology Progress Note - Dr Galan Patient seen and examined at bedside. Per nursing no acute events overnight. Patient is doing well, offers no complaints at this time. Desires to go home. Denies any chest pain or dyspnea. Objective - Vital Signs/Intake and Output Vital Signs (last 24 hours): Temp Pulse Resp BP Pulse Ox 97.8 F 77 20 100/57 L 96 01/22/18 07:42 01/22/18 08:00 01/22/18 07:42 01/22/18 07:42 01/22/18 07:42 Intake and Output: 01/22/18 01/22/18 06:59 18:59 Intake Total 250 300 Balance 250 300 - Medications Medications: Current Medications Escitalopram Oxalate (Lexapro) 20 mg PO DAILY [facility] Last Admin: 01/22/18 09:20 Dose: 20 mg Famotidine (Pepcid) 20 mg PO DAILY [facility] Last Admin: 01/22/18 09:20 Dose: 20 mg Heparin Sodium (Porcine) (Heparin) 5,000 units SC Q8 [facility] Stop: 01/22/18 23:59 Last Admin: 01/22/18 13:08 Dose: 5,000 units Hydrochlorothiazide (Microzide) 12.5 mg PO DAILY [facility] Last Admin: 01/22/18 09:20 Dose: 12.5 mg Cefepime HCl (Maxipime Iv 2 Gm Premix) 2 gm in 100 mls @ 200 mls/hr IVPB Q8H [facility] PRN Reason: Protocol Stop: 01/27/18 05:01 Last Admin: 01/22/18 13:07 Dose: 200 mls/hr Ibuprofen (Motrin Tab) 400 mg PO Q6H PRN PRN Reason: Pain, Mild (1-3) Lisinopril (Zestril) 20 mg PO DAILY [facility] Last Admin: 01/22/18 09:20 Dose: 20 mg Rosuvastatin Calcium (Crestor) 10 mg PO HS [facility] Last Admin: 01/21/18 22:03 Dose: 10 mg Saccharomyces Boulardii (Florastor) 250 mg PO BID [facility] Last Admin: 01/22/18 09:20 Dose: 250 mg - Labs Labs: 01/22/18 07:47 01/22/18 07:47 PT 12.4 SECONDS (9.7-12.2) H 01/20/18 06:38 INR 1.1 01/20/18 06:38 APTT 32 SECONDS (21-34) 01/20/18 06:38 - Additional Findings Additional findings: - Constitutional Appears: Well, No Acute Distress - Head Exam Head Exam: ATRAUMATIC, NORMAL INSPECTION - Eye Exam Eye Exam: EOMI - ENT Exam ENT Exam: Mucous Membranes Moist - Neck Exam Neck Exam: Full ROM - Respiratory Exam Respiratory Exam: Clear to Ausculation Bilateral, NORMAL BREATHING PATTERN. absent: Rales, Rhonchi, Wheezes - Cardiovascular Exam Cardiovascular Exam: REGULAR RHYTHM, +S1, +S2 - GI/Abdominal Exam GI & Abdominal Exam: Soft. absent: Tenderness - Extremities Exam Extremities Exam: Normal Inspection. absent: Calf Tenderness - Neurological Exam Neurological Exam: Alert, Awake, Oriented x3 - Psychiatric Exam Psychiatric exam: Normal Affect, Normal Mood - Skin Skin Exam: Normal Color, Warm Assessment and Plan - Assessment and Plan (Free Text) Assessment: A/P: Patient is a 67 year old female PMH right invasive ductal carcinoma, hypertension, depression who comes to [facility] after experiencing chills and rigor at chemotherapy. Her left subclavian portacath was placed on 12/20/17, and she started chemotherapy on Mallory, 01/09/18. Her first session of chemo was uneventful. It was toward the end of her second chemotherapy session which she developed chills, fever, and rigor. Pericardial effusion -Stable, afebrile -Troponins negative x 3 -ECHO reviewed Normal EF 01/10/18), Small effusion -Repeat ECHO and CHITO showed stable small pericardial effusion -Will continue to monitor -Will recommend repeat echo in 3 months outpatient, if having worsening SOB return to ED -Plan discussed with Dr Galan Gram negative bacteremia -Leukocytosis resolved, afebrile -Procal trending down -S/P removal of subclavian portacath by general surgery -01/18 Body fluid and wound cultures growing gram pseudomonas aeruginosa -CHITO was negative for vegetations -01/17 Repeat blood cultures grew pseudomonas aeruginosa x 2 -01/19 Repeat blood cultures showing no growth x 24 hours -Continue antibiotics per ID -CT abd/pelvis diverticulosis with evidence of diverticulitis (see full report) -CT chest showed scatted pulmonary nodules (see full report) Hypertension -Continue Lisinopril 20mg PO daily -Continue HCTZ 12.5mg PO daily Mare Gomez DO PGY -2 <Garret Galan - Last Filed: 01/22/18 19:55> Objective - Vital Signs/Intake and Output Vital Signs (last 24 hours): Temp Pulse Resp BP Pulse Ox 97.6 F 112 H 20 120/73 100 01/22/18 15:14 01/22/18 16:00 01/22/18 15:14 01/22/18 15:14 01/22/18 15:14 Intake and Output: 01/22/18 01/23/18 18:59 06:59 Intake Total 300 Balance 300 - Medications Medications: Current Medications Escitalopram Oxalate (Lexapro) 20 mg PO DAILY [facility] Last Admin: 01/22/18 09:20 Dose: 20 mg Famotidine (Pepcid) 20 mg PO DAILY [facility] Last Admin: 01/22/18 09:20 Dose: 20 mg Heparin Sodium (Porcine) (Heparin) 5,000 units SC Q8 [facility] Stop: 01/22/18 23:59 Last Admin: 01/22/18 13:08 Dose: 5,000 units Hydrochlorothiazide (Microzide) 12.5 mg PO DAILY [facility] Last Admin: 01/22/18 09:20 Dose: 12.5 mg Cefepime HCl (Maxipime Iv 2 Gm Premix) 2 gm in 100 mls @ 200 mls/hr IVPB Q8H [facility] PRN Reason: Protocol Stop: 01/27/18 05:01 Last Admin: 01/22/18 13:07 Dose: 200 mls/hr Ibuprofen (Motrin Tab) 400 mg PO Q6H PRN PRN Reason: Pain, Mild (1-3) Lisinopril (Zestril) 20 mg PO DAILY [facility] Last Admin: 01/22/18 09:20 Dose: 20 mg Rosuvastatin Calcium (Crestor) 10 mg PO HS [facility] Last Admin: 01/21/18 22:03 Dose: 10 mg Saccharomyces Boulardii (Florastor) 250 mg PO BID [facility] Last Admin: 01/22/18 18:25 Dose: 250 mg - Labs Labs: 01/22/18 07:47 01/22/18 07:47 PT 12.4 SECONDS (9.7-12.2) H 01/20/18 06:38 INR 1.1 01/20/18 06:38 APTT 32 SECONDS (21-34) 01/20/18 06:38 Assessment and Plan - Assessment and Plan (Free Text) Assessment: Patient seen and evaluated personally by mi Plan of care d/w the medical clerk and as documented
--- NOTE | 2018-01-22 16:27 | CP.PCM.PN ---
<Bahman Gorman - Last Filed: 01/22/18 16:32> Subjective - Date & Time of Evaluation Date of Evaluation: 01/22/18 Time of Evaluation: 07:00 - Subjective Subjective: Pt seen and examined at bedside. Pt reports feeling some sadness and wishes to go home. Pt understands that the blood cultures must show no growth for 72hrs prior to discharge. Pt reports no pains at the site of removed portacath. Pt denies Chest pain, sob, palpitations, dizziness, f/c, n/v, sweating, swelling in extremities. Pt understands she will have to follow up with heme/onc for replacement of new portacath. Objective - Vital Signs/Intake and Output Vital Signs (last 24 hours): Temp Pulse Resp BP Pulse Ox 97.6 F 96 H 20 120/73 100 01/22/18 15:14 01/22/18 15:14 01/22/18 15:14 01/22/18 15:14 01/22/18 15:14 Intake and Output: 01/22/18 01/22/18 06:59 18:59 Intake Total 250 300 Balance 250 300 - Medications Medications: Current Medications Escitalopram Oxalate (Lexapro) 20 mg PO DAILY [facility] Last Admin: 01/22/18 09:20 Dose: 20 mg Famotidine (Pepcid) 20 mg PO DAILY [facility] Last Admin: 01/22/18 09:20 Dose: 20 mg Heparin Sodium (Porcine) (Heparin) 5,000 units SC Q8 [facility] Stop: 01/22/18 23:59 Last Admin: 01/22/18 13:08 Dose: 5,000 units Hydrochlorothiazide (Microzide) 12.5 mg PO DAILY [facility] Last Admin: 01/22/18 09:20 Dose: 12.5 mg Cefepime HCl (Maxipime Iv 2 Gm Premix) 2 gm in 100 mls @ 200 mls/hr IVPB Q8H [facility] PRN Reason: Protocol Stop: 01/27/18 05:01 Last Admin: 01/22/18 13:07 Dose: 200 mls/hr Ibuprofen (Motrin Tab) 400 mg PO Q6H PRN PRN Reason: Pain, Mild (1-3) Lisinopril (Zestril) 20 mg PO DAILY [facility] Last Admin: 01/22/18 09:20 Dose: 20 mg Rosuvastatin Calcium (Crestor) 10 mg PO [facility] Last Admin: 01/21/18 22:03 Dose: 10 mg Saccharomyces Boulardii (Florastor) 250 mg PO BID [facility] Last Admin: 01/22/18 09:20 Dose: 250 mg - Labs Labs: 01/22/18 07:47 01/22/18 07:47 PT 12.4 SECONDS (9.7-12.2) H 01/20/18 06:38 INR 1.1 01/20/18 06:38 APTT 32 SECONDS (21-34) 01/20/18 06:38 - Constitutional Appears: Well, Non-toxic, No Acute Distress - Head Exam Head Exam: ATRAUMATIC, NORMAL INSPECTION - Eye Exam Eye Exam: EOMI, Normal appearance - ENT Exam ENT Exam: Mucous Membranes Moist - Neck Exam Neck Exam: Normal Inspection - Cardiovascular Exam Cardiovascular Exam: RRR, +S1, +S2. absent: Murmur - GI/Abdominal Exam GI & Abdominal Exam: Soft, Normal Bowel Sounds. absent: Guarding, Tenderness - Extremities Exam Extremities Exam: absent: Calf Tenderness, Tenderness - Back Exam Back Exam: NORMAL INSPECTION - Neurological Exam Neurological Exam: Alert, Awake, Oriented x3 Neuro motor strength exam: Left Upper Extremity: 5, Right Upper Extremity: 5, Left Lower Extremity: 5, Right Lower Extremity: 5 - Psychiatric Exam Psychiatric exam: Normal Affect, Normal Mood - Skin Skin Exam: Dry, Warm Assessment and Plan (1) Bacteremia Status: Resolved (2) Breast cancer Status: Chronic (3) Depression Status: Chronic (4) Fever Status: Resolved (5) Leukocytosis (leucocytosis) Status: Resolved - Assessment and Plan (Free Text) Assessment: 67 yo Female with a PMH of R Invasive ductal ca, depression and HTN admitted on 01/14 for fevers and chill during medication infusion via port-a-cath at infusion center, blood cultures growing gram neg rods 01/17. Plan: SIRS (systemic inflammatory response syndrome) -01/19 blood culture: 24hrs no growth, neg 48hr halley reading at 22:00 87. 72hr growth pending 22:00 01/22 -On admission: tachycardic with elevated WBC - source of infection : Blood culture growing gram neg pili -WBC 9.6 -ESR 63 -ProCalcitonin 24.15 up from 17 on admission -CRP 152.9 -Lactate 1.7 on admission -CXR: 01/15- mild pulmonary vasc congestion limited study due to body habitus -urine culture:neg -wound culture: neg -ID, Dr, Vitaliy Hernandes consulted help appreciated: r/o viral syndrome/drugfever/chemo induced fever -Sx Dr. iRojas consulted: help appreciated - in order to r/o infection of port ( recent placement on 12/20/17) -f/u CT chest,abd,pelvis - Medications: * NS@100CC/HR * Cefepime 2g in 100ml q8hrs * Florastor 250mg PO BID * Motrin 400mg PO Q6H PRN for fever>100.4 Chest Tightness -CHITO 01/20/2018: no vegetations -D-Dimer: elevated 1522 -CT angio-Neg for PE -ANTIONE neg x3 -EKG -NSR with nonspecific t wave changes neg x 3 -Venous doppler neg for DVT Pericardial Effusion -echo from 01/11: mild-mod pericardial effusion, EF 50% -Dr. Galan cardiology consult help appreciated -CHITO 01/20/2018: no vegetations Invasive ductal carcinoma of right breast, stage 3 -Dr Fox, Heme/Onc, consulted help appreciated : -Pathology result (11/26/17): * Right invasive ductal carcinoma Grade 3 with right axilla lymph node -Currently chemotherapy ( Started 12/26/17) -Left Port-a-cath placed 12/20/17, removed 01/20 Hypertension controlled -lsinopril 20mg PO daily -HCTZ 12.5mg PO daily -low sodium diet Depression Escitalopram 20mg PO QD PPX -GI: Pepcid 20mg PO QD -DVT: Heparin 5,000 units SC Q8H, SCDs -Heart Healthy Diet -PT/OT dispo: Pt to be d/c upon 72hr growth blood culture results at 22:00 tonight if neg. <Donavan Sauer - Last Filed: 01/23/18 19:00> Objective - Vital Signs/Intake and Output Vital Signs (last 24 hours): Temp Pulse Resp BP Pulse Ox 98.4 F 78 20 113/61 95 01/22/18 23:40 01/23/18 00:00 01/22/18 23:40 01/22/18 23:40 01/22/18 23:40 Intake and Output: 01/23/18 01/23/18 06:59 18:59 Intake Total 580 340 Balance 580 340 - Labs Labs: 01/22/18 07:47 01/22/18 07:47 PT 12.4 SECONDS (9.7-12.2) H 01/20/18 06:38 INR 1.1 01/20/18 06:38 APTT 32 SECONDS (21-34) 01/20/18 06:38 Attending/Attestation - Attestation I have personally seen and examined this patient.: Yes I have fully participated in the care of the patient.: Yes I have reviewed all pertinent clinical information, including history, physical exam and plan: Yes Notes (Text): 01/23/18 18:59 This is a late entry. Care of this patient has been discussed in detail with the resident. Donavan Sauer D.O.
--- NOTE | 2018-01-22 17:39 | CP.PCM.PN ---
Subjective - Date & Time of Evaluation Date of Evaluation: 01/22/18 Time of Evaluation: 17:39 - Subjective Subjective: CHIEF COMPLAINTS TODAY : afebrile. FEELING BETTER ANXIOUS TO GO HOME ROS. HEENT : N. Resp : No cough, wheezing ,pleuritic CP ,or hemoptysis Cardio : No anginal CP, PND, orthopnea, palpitation GI : No abd.pain, n/v ,diarrhea or GI bleeding . FLASK PUSHER : No headache, vertigo, focal deficit. Musculoskel : No joint swelling , Derm : LT. CHEST WALL-S/P pORT-a-cATH REMOVAL, mild erythema around the site improving Psych : Normal affect. Ext : No swelling ,calf pain PE. Pt. is alert awake in no distress. V.S As noted in the chart Head ,ear nose,throat and eyes : Normal. Neck : Supple with normal carotids. Lungs: Clear air entry. Heart : S1 & S2 normal with S4. No murmur. Abd : Soft non tender with normal bowel sounds. Neuro : Moves all ext. with no localized deficit. Ext : No edema with intact pulses.Non tender calves Derm : No rashes or decubitus ulcer. .LT. CHEST WALL, MILD TENDERNESS ON PALPATION, S/P REMOVAL PORT CATH. AREA AROUND improving cellulitis LABS/RADIOLOGY: REVIEWED BLOOD CULTURES- 01/14/18 1:2 SETS -PSEUDOMONAS-AERUGINOSA BLOOD CULTURES 01/17/18 GNR 2:2 SETS -PSEUDOMONAS-AERUGINOSA WOUND CULTURE pORT-a-cATH SITE 01/18/18 +VE PSEUDOMONAS AERUGINOSA REPEAT BLOOD CULTURES 01/19/18 X 3 days. Objective - Vital Signs/Intake and Output Vital Signs (last 24 hours): Temp Pulse Resp BP Pulse Ox 97.6 F 112 H 20 120/73 100 01/22/18 15:14 01/22/18 16:00 01/22/18 15:14 01/22/18 15:14 01/22/18 15:14 Intake and Output: 01/22/18 01/22/18 06:59 18:59 Intake Total 250 300 Balance 250 300 - Medications Medications: Current Medications Escitalopram Oxalate (Lexapro) 20 mg PO DAILY [facility] Last Admin: 01/22/18 09:20 Dose: 20 mg Famotidine (Pepcid) 20 mg PO DAILY [facility] Last Admin: 01/22/18 09:20 Dose: 20 mg Heparin Sodium (Porcine) (Heparin) 5,000 units SC Q8 [facility] Stop: 01/22/18 23:59 Last Admin: 01/22/18 13:08 Dose: 5,000 units Hydrochlorothiazide (Microzide) 12.5 mg PO DAILY [facility] Last Admin: 01/22/18 09:20 Dose: 12.5 mg Cefepime HCl (Maxipime Iv 2 Gm Premix) 2 gm in 100 mls @ 200 mls/hr IVPB Q8H [facility] PRN Reason: Protocol Stop: 01/27/18 05:01 Last Admin: 01/22/18 13:07 Dose: 200 mls/hr Ibuprofen (Motrin Tab) 400 mg PO Q6H PRN PRN Reason: Pain, Mild (1-3) Lisinopril (Zestril) 20 mg PO DAILY [facility] Last Admin: 01/22/18 09:20 Dose: 20 mg Rosuvastatin Calcium (Crestor) 10 mg PO HS [facility] Last Admin: 01/21/18 22:03 Dose: 10 mg Saccharomyces Boulardii (Florastor) 250 mg PO BID [facility] Last Admin: 01/22/18 09:20 Dose: 250 mg - Labs Labs: 01/22/18 07:47 01/22/18 07:47 PT 12.4 SECONDS (9.7-12.2) H 01/20/18 06:38 INR 1.1 01/20/18 06:38 APTT 32 SECONDS (21-34) 01/20/18 06:38 Assessment and Plan (1) Gram negative sepsis Assessment & Plan: CHITO 01/20/18 -VE FOR ENDOCARDITIS. REPEAT BLOOD CULTURES 01/19/18 X 72 HOURS PATIENT TO BE SWITCHED TO PO ABX IN AM PO CIPRO 500 MG EVERY 12 HOURLY X 14 DAYS FROM THE DAY OF LAST -VE BLOOD CULTURE i.e 01/19/18 f/u lfts weekly. PT CAN GET JUNG CATH SCHEDULED OPD . WILL DISCUSS W DR EASON. Status: Acute (2) Leukocytosis (leucocytosis) Assessment & Plan: IMPROVING WBC 8.0 Status: Resolved (3) Hypertension Status: Acute (4) Breast cancer, stage 3 Status: Acute
--- NOTE | 2018-01-22 19:25 | CP.PCM.PN ---
Subjective - Date & Time of Evaluation Date of Evaluation: 01/22/18 Time of Evaluation: 19:20 - Subjective Subjective: The patient reports feeling ok, without any further chills, fair appetite , anxious to go home. Objective - Vital Signs/Intake and Output Vital Signs (last 24 hours): Temp Pulse Resp BP Pulse Ox 97.6 F 112 H 20 120/73 100 01/22/18 15:14 01/22/18 16:00 01/22/18 15:14 01/22/18 15:14 01/22/18 15:14 Intake and Output: 01/22/18 01/23/18 18:59 06:59 Intake Total 300 Balance 300 - Medications Medications: Current Medications Escitalopram Oxalate (Lexapro) 20 mg PO DAILY [facility] Last Admin: 01/22/18 09:20 Dose: 20 mg Famotidine (Pepcid) 20 mg PO DAILY [facility] Last Admin: 01/22/18 09:20 Dose: 20 mg Heparin Sodium (Porcine) (Heparin) 5,000 units SC Q8 [facility] Stop: 01/22/18 23:59 Last Admin: 01/22/18 13:08 Dose: 5,000 units Hydrochlorothiazide (Microzide) 12.5 mg PO DAILY [facility] Last Admin: 01/22/18 09:20 Dose: 12.5 mg Cefepime HCl (Maxipime Iv 2 Gm Premix) 2 gm in 100 mls @ 200 mls/hr IVPB Q8H [facility] PRN Reason: Protocol Stop: 01/27/18 05:01 Last Admin: 01/22/18 13:07 Dose: 200 mls/hr Ibuprofen (Motrin Tab) 400 mg PO Q6H PRN PRN Reason: Pain, Mild (1-3) Lisinopril (Zestril) 20 mg PO DAILY [facility] Last Admin: 01/22/18 09:20 Dose: 20 mg Rosuvastatin Calcium (Crestor) 10 mg PO HS [facility] Last Admin: 01/21/18 22:03 Dose: 10 mg Saccharomyces Boulardii (Florastor) 250 mg PO BID [facility] Last Admin: 01/22/18 18:25 Dose: 250 mg - Labs Labs: 01/22/18 07:47 01/22/18 07:47 PT 12.4 SECONDS (9.7-12.2) H 01/20/18 06:38 INR 1.1 01/20/18 06:38 APTT 32 SECONDS (21-34) 01/20/18 06:38 Assessment and Plan (1) Breast cancer Assessment & Plan: 67 yo woman with clinical stage II breast cancer, s/p C#1 chemo(AC), developed chills from port infection, pseudomonas bacteria, getting iv antibiotics, possible discharge home tomorrow on PO antibiotics. The patient will follow up in week as an outpatient for decision regarding further chemo and possible reinsertion of another port. Above discussed with the patient as well Status: Chronic (2) Breast cancer, stage 3 Status: Acute
[2018-01-23 01:25] VITALS: BP 113/61; TEMP 98.4; O2SAT 95
[2018-01-23 03:51] VITALS: PULSE 78
[2018-01-23] MEDS: Cefepime IV 2 gm in Dextrose 2 GM/100 ML BAG IVPB SCH (05:17)
--- NOTE | 2018-01-23 09:20 | CP.PCM.PN ---
Subjective - Date & Time of Evaluation Date of Evaluation: 01/23/18 Time of Evaluation: 09:00 - Subjective Subjective: Hospitalist Progress Note Patient was seen and examined at 9:00 AM 01/23/18 Currently upon FULL ROS she has NO complaints Exam: General: AAOX3, NAD HEENT: NCA, EOMI, PERRLA,, NO cervical/supraclavicular/submandibular lymphadenopathy, NO pharyngeal erythema/exudate, Nasal Turbinates are nonerythematous/nonedematous, Oral Mucosa is moist Cardio: NS1 and NS2, NO M/R/G Resp: CTA B/L NO R/R/W, Left Upper Chest form Chemo Port site without any evidence of celliitis and NO wound dehisence GI: BSx4, Soft, NT, NO HSM, NO guarding/rebound tenderness Ext: Pulses are strong and equal, Capillary Refill is 2 seconds, NO edema, Fingers and Toes Bilaterally are normal color/warm Neuro: CN II through XII are grossly intact Assessments: 1). Pseudomonas Bacteremia 2). Invasive Ductal Cell Right Breast CA 3). HTN 4). Depression 5). Percardial Effusion 6). Elevated LFTs 7). HLD Repeat Blood Culture is negative at 72 hours. Vitals are stable and there have been NO fevers > 48 hours. CHITO did not show any vegetations and the percardial effusion to be small LFTs still elevated but they can be monitored outpatient Patient is stable for discharge. She has contact information for her PMD Dr. Eyad Aguilera and her Oncologist Dr. Terrazas. The following instructions were explained to patient and a copy will need to be provided to her upon discharge: 1). Schedule follow up appointment with your primary care physician Dr. Eyad Aguilera to take place in the next 7 days. Through his office you will need to have repeat blood work to make sure that your liver enzymes are coming down. You will also need to have repeat ultrasound of your heart in 3 months to make sure that the fluid around your heart has resolved. 2). Schedule follow up appointment with your Oncologist Dr. Terrazas to take place during the week of 01/27/18 to discuss whether you want to continue Chemotherapy and if so then you will have to have arrangement made to have the Chemotherapy Port placed back in. 3). The following prescriptions were provided to you and you will need to have them filled at your pharmacy on your way home from the hospital: Lisinopril/HCTZ 20/12.5 mg, 1 tablet by mouth 1 time a day (8AM), Dispense #30, NO refills Lexapro 20 mg, 1 tablet by mouth 1 time a day (8AM), Dispense #30, NO refills Ciprofloxacin 500 mg, 1 tablet by mouth 2 times a day (8 AM and 8 PM) through , Dispense #20, NO refills 4). STOP taking Crestor until your liver enzymes have normalized. Again you need to have weekly blood work through Dr. Aguilera's office to make sure that the liver enzymes are coming down. 5). Please have a congolese yogurt with a good source of good bacteria everyday with lunch (12 to 1 PM) through March 05, 2018 to make sure that the good bacteria are brought back to your colon. 6). Please do not exercise or lift anything heavy and please be careful going up and down stairs as the Ciprofloxacin can cause inflammation of your tendons and possible rupture. 7). Please remain well hydrated with water throughout the day. 8). Please create a medical folder for yourself containing these instructions and the all of the discharge paperwork that was provided to you at the time of your discharge and bring this folder with you to all of your future appointments with any health healthcare administration intern. 9). Please take care and be well. Donavan Sauer D.O. Objective - Vital Signs/Intake and Output Vital Signs (last 24 hours): Temp Pulse Resp BP Pulse Ox 98.4 F 78 20 113/61 95 01/22/18 23:40 01/23/18 00:00 01/22/18 23:40 01/22/18 23:40 01/22/18 23:40 Intake and Output: 01/23/18 01/23/18 06:59 18:59 Intake Total 580 340 Balance 580 340 - Medications Medications: Current Medications Escitalopram Oxalate (Lexapro) 20 mg PO DAILY [facility] Last Admin: 01/22/18 09:20 Dose: 20 mg Famotidine (Pepcid) 20 mg PO DAILY [facility] Last Admin: 01/22/18 09:20 Dose: 20 mg Hydrochlorothiazide (Microzide) 12.5 mg PO DAILY [facility] Last Admin: 01/22/18 09:20 Dose: 12.5 mg Cefepime HCl (Maxipime Iv 2 Gm Premix) 2 gm in 100 mls @ 200 mls/hr IVPB Q8H [facility] PRN Reason: Protocol Stop: 01/27/18 05:01 Last Admin: 01/23/18 05:17 Dose: 200 mls/hr Ibuprofen (Motrin Tab) 400 mg PO Q6H PRN PRN Reason: Pain, Mild (1-3) Lisinopril (Zestril) 20 mg PO DAILY [facility] Last Admin: 01/22/18 09:20 Dose: 20 mg Rosuvastatin Calcium (Crestor) 10 mg PO HS [facility] Last Admin: 01/22/18 22:09 Dose: 10 mg Saccharomyces Boulardii (Florastor) 250 mg PO BID [facility] Last Admin: 01/22/18 18:25 Dose: 250 mg - Labs Labs: 01/22/18 07:47 01/22/18 07:47 PT 12.4 SECONDS (9.7-12.2) H 01/20/18 06:38 INR 1.1 01/20/18 06:38 APTT 32 SECONDS (21-34) 01/20/18 06:38
[2018-01-23] MEDS: Saccharomyces Boulardi 250 mg Cap PO SCH (09:24)
--- NOTE | 2018-01-23 17:50 | CP.PCM.DIS ---
<Bahman Gorman - Last Filed: 01/23/18 17:47> Provider - Provider Date of Admission: 01/14/18 18:33 Attending physician: Donavan Sauer MD Time Spent in preparation of Discharge (in minutes): 45 Diagnosis - Discharge Diagnosis (1) Bacteremia Status: Resolved (2) Breast cancer Status: Chronic (3) Depression Status: Chronic (4) Fever Status: Resolved (5) Leukocytosis (leucocytosis) Status: Resolved Hospital Course - Lab Results Lab Results: Micro Results 01/19/18 22:00 Blood Blood Culture - Preliminary NO GROWTH AFTER 3 DAYS 01/19/18 21:30 Blood Blood Culture - Preliminary NO GROWTH AFTER 3 DAYS 01/18/18 09:02 Catheter Tip Catheter Tip Culture - Final No Growth 01/18/18 09:04 Other: Please Indicate Gram Stain - Final 01/18/18 09:04 Other: Please Indicate Body Fluid Culture - Final Pseudomonas Aeruginosa 01/18/18 09:04 Other: Please Indicate Gram Stain - Final 01/18/18 09:04 Other: Please Indicate Wound Culture - Final Pseudomonas Aeruginosa 01/14/18 18:00 Blood Blood Culture - Final NO GROWTH AFTER 5 DAYS 01/14/18 18:00 Blood Gram Stain - Final TEST NOT PERFORMED 01/17/18 12:40 Blood-Thru Central Line Blood Culture - Final Pseudomonas Aeruginosa 01/17/18 12:40 Blood-Thru Central Line Gram Stain - Final 01/17/18 12:10 Blood-Thru Central Line Blood Culture - Final Pseudomonas Aeruginosa 01/17/18 12:10 Blood-Thru Central Line Gram Stain - Final 01/14/18 17:30 Blood Blood Culture - Final Pseudomonas Aeruginosa 01/14/18 17:30 Blood Gram Stain - Final 01/14/18 18:58 Breast - Left Gram Stain - Final 01/14/18 18:58 Breast - Left Wound Culture - Final No Growth 01/14/18 Unknown Naris MRSA Culture (Admit) - Final MRSA NOT DETECTED 01/14/18 17:52 Urine Urine Culture - Final No Growth (<1,000 CFU/ML) Most Recent Lab Values WBC 8.8 K/uL (4.8-10.8) 01/22/18 07:47 RBC 3.86 Mil/uL (3.80-5.20) 01/22/18 07:47 Hgb 12.2 g/dL (11.0-16.0) 01/22/18 07:47 Hct 35.2 % (34.0-47.0) 01/22/18 07:47 MCV 91.2 fL (81.0-99.0) 01/22/18 07:47 MCH 31.5 pg (27.0-31.0) H 01/22/18 07:47 MCHC 34.6 g/dL (33.0-37.0) 01/22/18 07:47 RDW 13.8 % (11.5-14.5) 01/22/18 07:47 Plt Count 335 K/uL (130-400) 01/22/18 07:47 MPV 7.5 fL (7.2-11.7) 01/22/18 07:47 Neut % (Auto) 58.3 % (50.0-75.0) 01/22/18 07:47 Lymph % (Auto) 29.3 % (20.0-40.0) 01/22/18 07:47 [place] % (Auto) 10.5 % (0.0-10.0) H 01/22/18 07:47 Eos % (Auto) 1.3 % (0.0-4.0) 01/22/18 07:47 Baso % (Auto) 0.6 % (0.0-2.0) 01/22/18 07:47 Neut # (Auto) 5.1 K/uL (1.8-7.0) 01/22/18 07:47 Lymph # (Auto) 2.6 K/uL (1.0-4.3) 01/22/18 07:47 [place] # (Auto) 0.9 K/uL (0.0-0.8) H 01/22/18 07:47 Eos # (Auto) 0.1 K/uL (0.0-0.7) 01/22/18 07:47 Baso # (Auto) 0.0 K/uL (0.0-0.2) 01/22/18 07:47 Neutrophils % (Manual) 88 % (50-75) H 01/15/18 06:47 Band Neutrophils % 3 % (0-2) H 01/15/18 06:47 Lymphocytes % (Manual) 5 % (20-40) L 01/15/18 06:47 Reactive Lymphs % 1 % (0-0) H 01/15/18 06:47 Monocytes % (Manual) 3 % (0-10) 01/15/18 06:47 Toxic Granulation Present 01/15/18 06:47 Platelet Estimate Normal (NORMAL) 01/15/18 06:47 RBC Morphology Normal 01/14/18 17:52 Hypochromasia (manual) Slight 01/15/18 06:47 Poikilocytosis (manual Slight 01/15/18 06:47 Anisocytosis (manual) Slight 01/15/18 06:47 ESR 63 mm/hr (0-20) H 01/15/18 06:47 PT 12.4 SECONDS (9.7-12.2) H 01/20/18 06:38 INR 1.1 01/20/18 06:38 APTT 32 SECONDS (21-34) 01/20/18 06:38 D-Dimer, Quantitative 1522 ng/mlDDU (0-243) H 01/15/18 06:47 pO2 52 mm/Hg (30-55) 01/14/18 17:56 VBG pH 7.45 (7.32-7.43) H 01/14/18 17:56 VBG pCO2 30 mmHg (40-60) L 01/14/18 17:56 VBG HCO3 23.0 mmol/L 01/14/18 17:56 VBG Total CO2 21.8 mmol/L (22-28) L 01/14/18 17:56 VBG O2 Sat (Calc) 92.5 % (40-65) H 01/14/18 17:56 VBG Base Excess -2.1 mmol/L (0.0-2.0) L 01/14/18 17:56 VBG Potassium 3.1 mmol/L (3.6-5.2) L 01/14/18 17:56 Sodium 141.0 mmol/l (132-148) 01/14/18 17:56 Chloride 110.0 mmol/L (98-107) H 01/14/18 17:56 Glucose 188 mg/dl (65-105) H 01/14/18 17:56 Lactate 1.7 mmol/L (0.7-2.1) 01/14/18 17:56 Sodium 140 mmol/L (132-148) 01/22/18 07:47 Potassium 4.2 mmol/L (3.6-5.2) 01/22/18 07:47 Chloride 100 mmol/L (98-107) 01/22/18 07:47 Carbon Dioxide 27 mmol/L (22-30) 01/22/18 07:47 Anion Gap 18 (10-20) 01/22/18 07:47 BUN 15 mg/dL (7-17) 01/22/18 07:47 Creatinine 0.6 mg/dL (0.7-1.2) L 01/22/18 07:47 Est GFR ( Amer) > 60 01/22/18 07:47 Est GFR (Non-Af Amer) > 60 01/22/18 07:47 POC Glucose (mg/dL) 132 mg/dL (65-110) H 01/23/18 02:20 Random Glucose 127 mg/dL (65-105) H 01/22/18 07:47 Calcium 10.1 mg/dl (8.6-10.4) 01/22/18 07:47 Phosphorus 4.0 mg/dL (2.5-4.5) 01/22/18 07:47 Magnesium 2.0 mg/dL (1.6-2.3) 01/22/18 07:47 Total Bilirubin 0.3 mg/dL (0.2-1.3) 01/22/18 07:47 AST 43 U/L (14-36) H D 01/22/18 07:47 ALT 84 U/L (9-52) H D 01/22/18 07:47 Alkaline Phosphatase 102 U/L (38-126) 01/22/18 07:47 Total Creatine Kinase 131 U/L (30-135) 01/15/18 22:38 CK-MB (Mass) 2.95 ng/mL (0.0-3.38) 01/15/18 22:38 Troponin I < 0.0120 ng/mL (0.00-0.120) 01/15/18 22:38 C-Reactive Protein 152.90 mg/L (0.0-9.9) H 01/15/18 06:47 Total Protein 7.3 g/dL (6.3-8.3) 01/22/18 07:47 Albumin 4.3 g/dL (3.5-5.0) 01/22/18 07:47 Globulin 3.0 gm/dL (2.2-3.9) 01/22/18 07:47 Albumin/Globulin Ratio 1.5 (1.0-2.1) 01/22/18 07:47 Procalcitonin 0.78 NG/ML (0.19-0.49) H 01/22/18 07:47 Venous Blood Potassium 3.1 mmol/L (3.6-5.2) L 01/14/18 17:56 Urine Color Yellow (YELLOW) 01/14/18 17:52 Urine Clarity Clear (Clear) 01/14/18 17:52 Urine pH 5.0 (5.0-8.0) 01/14/18 17:52 Ur Specific [place] 1.011 (1.003-1.030) 01/14/18 17:52 Urine Protein Negative mg/dL (NEGATIVE) 01/14/18 17:52 Urine Glucose (UA) Normal mg/dL (Normal) 01/14/18 17:52 Urine Ketones Negative mg/dL (NEGATIVE) 01/14/18 17:52 Urine Blood Negative (NEGATIVE) 01/14/18 17:52 Urine Nitrate Negative (NEGATIVE) 01/14/18 17:52 Urine Bilirubin Negative (NEGATIVE) 01/14/18 17:52 Urine Urobilinogen Normal mg/dL (0.2-1.0) 01/14/18 17:52 Ur Leukocyte Esterase Neg Royce/uL (Negative) 01/14/18 17:52 Urine WBC (Auto) < 1 /hpf (0-5) 01/14/18 17:52 Ur Squamous Epith Cells < 1 /hpf (0-5) 01/14/18 17:52 - Hospital Course Hospital Course: HPI: (History was obtained from patient and her daughter) Patient is a 67 year old female with history of 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 There was no loss of consciousness during this episode, but she was uncontrollably shaking. Patient had a L subclavian portacath insertion on 12/16/17 and started chemotherapy on 12/26; in the last week and a half the patient has been having intermittent fevers (subsiding with Tylenol). Previous Tmax of 103.3, but today's Tmax is 106. Patient admits to having a sick contact with her friend who also has cancer and has an infection, possibly bacteremia. During the encounter, patient admits to chest pain that worsens with inspiration , chills, fatigue, ringing in the ear, intermittent headache, taste in her mouth /altered gustatory sensation that has reduced her appetite, looser/more frequent stools ( with increase fiber and water intake), 3 pounds weight loss in the last 3 months, decrease activities. Patient denies palpitations, headache , shortness of breath, abdominal pain, nausea/vomiting, hematemesis, hematochezia, melena, leg swelling, bruising, bleeding and any travel since coming to the in October. In the last week, soon after a bowel movement, patient had an episode of syncope that was witnessed by family members; she did not hit her head or back. Code Status: full code and Daughter is proxy PMD: Hemanth Aguilera Heme/Onco: Dr. Terrazas PMHx: Stage 4 breast cancer, hypertension, depression, salivary gland (parotid? 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 Lives with daughter. Denies current or former use of tobacco, ETOH and illicit drugs hospital course: Pt was admitted with Fever s/p infusion center access of Portacath. Blood cultures were positive for pseudomonas. Pt treated with Cefepime IV. Pt blood cultures taken on 01/19 showed now growth for 72hrs. 1). Schedule follow up appointment with your primary care physician Dr. Eyad Aguilera to take place in the next 7 days. Through his office you will need to have repeat blood work to make sure that your liver enzymes are coming down. You will also need to have repeat ultrasound of your heart in 3 months to make sure that the fluid around your heart has resolved. 2). Schedule follow up appointment with your Oncologist Dr. Terrazas to take place during the week of 01/27/18 to discuss whether you want to continue Chemotherapy and if so then you will have to have arrangement made to have the Chemotherapy Port placed back in. 3). The following prescriptions were provided to you and you will need to have them filled at your pharmacy on your way home from the hospital: Lisinopril/HCTZ 20/12.5 mg, 1 tablet by mouth 1 time a day (8AM), Dispense #30, NO refills Lexapro 20 mg, 1 tablet by mouth 1 time a day (8AM), Dispense #30, NO refills Ciprofloxacin 500 mg, 1 tablet by mouth 2 times a day (8 AM and 8 PM) through , Dispense #20, NO refills 4). STOP taking Crestor until your liver enzymes have normalized. Again you need to have weekly blood work through Dr. Aguilera's office to make sure that the liver enzymes are coming down. 5). Please have a norwegian yogurt with a good source of good bacteria everyday with lunch (12 to 1 PM) through March 05, 2018 to make sure that the good bacteria are brought back to your colon. 6). Please do not exercise or lift anything heavy and please be careful going up and down stairs as the Ciprofloxacin can cause inflammation of your tendons and possible rupture. 7). Please remain well hydrated with water throughout the day. 8). Please create a medical folder for yourself containing these instructions and the all of the discharge paperwork that was provided to you at the time of your discharge and bring this folder with you to all of your future appointments with any health care director rn. 9). Please take care and be well. Donavan Sauer D.O. Discharge Exam - Head Exam Head Exam: ATRAUMATIC, NORMAL INSPECTION - Eye Exam Eye Exam: EOMI, Normal appearance. absent: Scleral icterus - ENT Exam ENT Exam: Mucous Membranes Moist - Respiratory Exam Respiratory Exam: NORMAL BREATHING PATTERN, UNREMARKABLE - Cardiovascular Exam Cardiovascular Exam: RRR, +S1, +S2. absent: Diastolic murmur, Systolic Murmur - GI/Abdominal Exam GI & Abdominal Exam: Normal Bowel Sounds. absent: Distended, Firm - Extremities Exam Extremities exam: normal inspection, pedal pulses present - Back Exam Back exam: NORMAL INSPECTION - Neurological Exam Neurological exam: Alert, CN II-XII Intact, Normal Gait, Oriented x3 - Psychiatric Exam Psychiatric exam: Normal Affect, Normal Mood - Skin Skin Exam: Dry, Normal Color, Warm Discharge Plan - Discharge Medications Prescriptions: Ciprofloxacin HCl [Cipro] 500 mg PO BID #20 tablet Escitalopram Oxalate 20 mg PO DAILY #30 tablet Lisinopril/Hydrochlorothiazide [Lisinopril-Hctz 20-12.5 mg Tab] 1 tab PO DAILY # 30 tablet - Follow Up Plan Condition: STABLE Disposition: HOME/ ROUTINE Instructions: Ciprofloxacin (Systemic), Heart Healthy Diet, Sepsis, Adult (DC) , Escitalopram, Lisinopril and Hydrochlorothiazide, Portacath Removal, Leukocytosis (DC), Leukocytosis (GEN) Additional Instructions: The following instructions were explained to patient and a copy will need to be provided to her upon discharge: 1). Schedule follow up appointment with your primary care physician Dr. Eyad Aguilera to take place in the next 7 days. Through his office you will need to have repeat blood work to make sure that your liver enzymes are coming down. You will also need to have repeat ultrasound of your heart in 3 months to make sure that the fluid around your heart has resolved. 2). Schedule follow up appointment with your Oncologist Dr. Terrazas to take place during the week of 01/27/18 to discuss whether you want to continue Chemotherapy and if so then you will have to have arrangement made to have the Chemotherapy Port placed back in. 3). The following prescriptions were provided to you and you will need to have them filled at your pharmacy on your way home from the hospital: Lisinopril/HCTZ 20/12.5 mg, 1 tablet by mouth 1 time a day (8AM), Dispense #30, NO refills Lexapro 20 mg, 1 tablet by mouth 1 time a day (8AM), Dispense #30, NO refills Ciprofloxacin 500 mg, 1 tablet by mouth 2 times a day (8 AM and 8 PM) through , Dispense #20, NO refills 4). STOP taking Crestor until your liver enzymes have normalized. Again you need to have weekly blood work through Dr. Aguilera's office to make sure that the liver enzymes are coming down. 5). Please have a [place]wegian yogurt with a good source of good bacteria everyday with lunch (12 to 1 PM) through March 05, 2018 to make sure that the good bacteria are brought back to your colon. 6). Please do not exercise or lift anything heavy and please be careful going up and down stairs as the Ciprofloxacin can cause inflammation of your tendons and possible rupture. 7). Please remain well hydrated with water throughout the day. 8). Please create a medical folder for yourself containing these instructions and the all of the discharge paperwork that was provided to you at the time of your discharge and bring this folder with you to all of your future appointments with any health care director rn. 9). Please take care and be well. Donavan Sauer D.O. Referrals: Alia Terrazas MD [Staff Provider] - 1 Week <Donavan Sauer - Last Filed: 01/23/18 18:59> Provider - Provider Date of Admission: 01/14/18 18:33 Attending physician: Donavan Sauer MD Time Spent in preparation of Discharge (in minutes): 40 Hospital Course - Lab Results Lab Results: Micro Results 01/19/18 22:00 Blood Blood Culture - Preliminary NO GROWTH AFTER 3 DAYS 01/19/18 21:30 Blood Blood Culture - Preliminary NO GROWTH AFTER 3 DAYS 01/18/18 09:02 Catheter Tip Catheter Tip Culture - Final No Growth 01/18/18 09:04 Other: Please Indicate Gram Stain - Final 01/18/18 09:04 Other: Please Indicate Body Fluid Culture - Final Pseudomonas Aeruginosa 01/18/18 09:04 Other: Please Indicate Gram Stain - Final 01/18/18 09:04 Other: Please Indicate Wound Culture - Final Pseudomonas Aeruginosa 01/14/18 18:00 Blood Blood Culture - Final NO GROWTH AFTER 5 DAYS 01/14/18 18:00 Blood Gram Stain - Final TEST NOT PERFORMED 01/17/18 12:40 Blood-Thru Central Line Blood Culture - Final Pseudomonas Aeruginosa 01/17/18 12:40 Blood-Thru Central Line Gram Stain - Final 01/17/18 12:10 Blood-Thru Central Line Blood Culture - Final Pseudomonas Aeruginosa 01/17/18 12:10 Blood-Thru Central Line Gram Stain - Final 01/14/18 17:30 Blood Blood Culture - Final Pseudomonas Aeruginosa 01/14/18 17:30 Blood Gram Stain - Final 01/14/18 18:58 Breast - Left Gram Stain - Final 01/14/18 18:58 Breast - Left Wound Culture - Final No Growth 01/14/18 Unknown Naris MRSA Culture (Admit) - Final MRSA NOT DETECTED 01/14/18 17:52 Urine Urine Culture - Final No Growth (<1,000 CFU/ML) Most Recent Lab Values WBC 8.8 K/uL (4.8-10.8) 01/22/18 07:47 RBC 3.86 Mil/uL (3.80-5.20) 01/22/18 07:47 Hgb 12.2 g/dL (11.0-16.0) 01/22/18 07:47 Hct 35.2 % (34.0-47.0) 01/22/18 07:47 MCV 91.2 fL (81.0-99.0) 01/22/18 07:47 MCH 31.5 pg (27.0-31.0) H 01/22/18 07:47 MCHC 34.6 g/dL (33.0-37.0) 01/22/18 07:47 RDW 13.8 % (11.5-14.5) 01/22/18 07:47 Plt Count 335 K/uL (130-400) 01/22/18 07:47 MPV 7.5 fL (7.2-11.7) 01/22/18 07:47 Neut % (Auto) 58.3 % (50.0-75.0) 08/08/18 07:47 Lymph % (Auto) 29.3 % (20.0-40.0) 01/22/18 07:47 [place] % (Auto) 10.5 % (0.0-10.0) H 01/22/18 07:47 Eos % (Auto) 1.3 % (0.0-4.0) 01/22/18 07:47 Baso % (Auto) 0.6 % (0.0-2.0) 01/22/18 07:47 Neut # (Auto) 5.1 K/uL (1.8-7.0) 01/22/18 07:47 Lymph # (Auto) 2.6 K/uL (1.0-4.3) 01/22/18 07:47 [place] # (Auto) 0.9 K/uL (0.0-0.8) H 01/22/18 07:47 Eos # (Auto) 0.1 K/uL (0.0-0.7) 01/22/18 07:47 Baso # (Auto) 0.0 K/uL (0.0-0.2) 01/22/18 07:47 Neutrophils % (Manual) 88 % (50-75) H 01/15/18 06:47 Band Neutrophils % 3 % (0-2) H 01/15/18 06:47 Lymphocytes % (Manual) 5 % (20-40) L 01/15/18 06:47 Reactive Lymphs % 1 % (0-0) H 01/15/18 06:47 Monocytes % (Manual) 3 % (0-10) 01/15/18 06:47 Toxic Granulation Present 01/15/18 06:47 Platelet Estimate Normal (NORMAL) 01/15/18 06:47 RBC Morphology Normal 01/14/18 17:52 Hypochromasia (manual) Slight 01/15/18 06:47 Poikilocytosis (manual Slight 01/15/18 06:47 Anisocytosis (manual) Slight 01/15/18 06:47 ESR 63 mm/hr (0-20) H 01/15/18 06:47 PT 12.4 SECONDS (9.7-12.2) H 01/20/18 06:38 INR 1.1 01/20/18 06:38 APTT 32 SECONDS (21-34) 01/20/18 06:38 D-Dimer, Quantitative 1522 ng/mlDDU (0-243) H 01/15/18 06:47 pO2 52 mm/Hg (30-55) 01/14/18 17:56 VBG pH 7.45 (7.32-7.43) H 01/14/18 17:56 VBG pCO2 30 mmHg (40-60) L 01/14/18 17:56 VBG HCO3 23.0 mmol/L 01/14/18 17:56 VBG Total CO2 21.8 mmol/L (22-28) L 01/14/18 17:56 VBG O2 Sat (Calc) 92.5 % (40-65) H 01/14/18 17:56 VBG Base Excess -2.1 mmol/L (0.0-2.0) L 01/14/18 17:56 VBG Potassium 3.1 mmol/L (3.6-5.2) L 01/14/18 17:56 Sodium 141.0 mmol/l (132-148) 01/14/18 17:56 Chloride 110.0 mmol/L (98-107) H 01/14/18 17:56 Glucose 188 mg/dl (65-105) H 01/14/18 17:56 Lactate 1.7 mmol/L (0.7-2.1) 01/14/18 17:56 Sodium 140 mmol/L (132-148) 01/22/18 07:47 Potassium 4.2 mmol/L (3.6-5.2) 01/22/18 07:47 Chloride 100 mmol/L (98-107) 01/22/18 07:47 Carbon Dioxide 27 mmol/L (22-30) 01/22/18 07:47 Anion Gap 18 (10-20) 01/22/18 07:47 BUN 15 mg/dL (7-17) 01/22/18 07:47 Creatinine 0.6 mg/dL (0.7-1.2) L 01/22/18 07:47 Est GFR ( Amer) > 60 01/22/18 07:47 Est GFR (Non-Af Amer) > 60 01/22/18 07:47 POC Glucose (mg/dL) 132 mg/dL (65-110) H 01/23/18 02:20 Random Glucose 127 mg/dL (65-105) H 01/22/18 07:47 Calcium 10.1 mg/dl (8.6-10.4) 01/22/18 07:47 Phosphorus 4.0 mg/dL (2.5-4.5) 01/22/18 07:47 Magnesium 2.0 mg/dL (1.6-2.3) 01/22/18 07:47 Total Bilirubin 0.3 mg/dL (0.2-1.3) 01/22/18 07:47 AST 43 U/L (14-36) H D 01/22/18 07:47 ALT 84 U/L (9-52) H D 01/22/18 07:47 Alkaline Phosphatase 102 U/L (38-126) 01/22/18 07:47 Total Creatine Kinase 131 U/L (30-135) 01/15/18 22:38 CK-MB (Mass) 2.95 ng/mL (0.0-3.38) 01/15/18 22:38 Troponin I < 0.0120 ng/mL (0.00-0.120) 01/15/18 22:38 C-Reactive Protein 152.90 mg/L (0.0-9.9) H 01/15/18 06:47 Total Protein 7.3 g/dL (6.3-8.3) 01/22/18 07:47 Albumin 4.3 g/dL (3.5-5.0) 01/22/18 07:47 Globulin 3.0 gm/dL (2.2-3.9) 01/22/18 07:47 Albumin/Globulin Ratio 1.5 (1.0-2.1) 01/22/18 07:47 Procalcitonin 0.78 NG/ML (0.19-0.49) H 01/22/18 07:47 Venous Blood Potassium 3.1 mmol/L (3.6-5.2) L 01/14/18 17:56 Urine Color Yellow (YELLOW) 01/14/18 17:52 Urine Clarity Clear (Clear) 01/14/18 17:52 Urine pH 5.0 (5.0-8.0) 01/14/18 17:52 Ur Specific [place] 1.011 (1.003-1.030) 01/14/18 17:52 Urine Protein Negative mg/dL (NEGATIVE) 01/14/18 17:52 Urine Glucose (UA) Normal mg/dL (Normal) 01/14/18 17:52 Urine Ketones Negative mg/dL (NEGATIVE) 01/14/18 17:52 Urine Blood Negative (NEGATIVE) 01/14/18 17:52 Urine Nitrate Negative (NEGATIVE) 01/14/18 17:52 Urine Bilirubin Negative (NEGATIVE) 01/14/18 17:52 Urine Urobilinogen Normal mg/dL (0.2-1.0) 01/14/18 17:52 Ur Leukocyte Esterase Neg Royce/uL (Negative) 01/14/18 17:52 Urine WBC (Auto) < 1 /hpf (0-5) 01/14/18 17:52 Ur Squamous Epith Cells < 1 /hpf (0-5) 01/14/18 17:52 Attending/Attestation - Attestation I have personally seen and examined this patient.: Yes I have fully participated in the care of the patient.: Yes I have reviewed all pertinent clinical information, including history, physical exam and plan: Yes Notes (Text): 01/23/18 18:59 Please also see my progress note 01/23/18. Donavan Sauer D.O.
--- NOTE | 2018-01-24 07:36 | CARD ---
APPROVED REPORT Date of service: 01/20/2018 EXAM: Transesophageal echocardiogram with color flow Doppler. INDICATION Infection : Rule out subacute bacterial endocarditis Chest Pain Reason For Test : Rule out endocarditis. PROCEDURE After obtaining informed consent, patient underwent transesophageal echo in the [employer] [facility]. Type of Sedation : Conscious Sedation Sedation was provided by anesthesiologist. Sedation was achieved with intravenously. The CHITO was performed complications. Throughout the procedure, the blood pressure, pulse oximetry, cardiac rhythm, and rate were monitored. The patient tolerated the procedure without adverse effects. Recovery from conscious sedation was uneventful and vital signs were stable. LEFT VENTRICLE The left ventricle is normal size. The left ventricular function is normal. The left ventricular ejection fraction is within the normal range. No left ventricle thrombus noted on this study. There is no ventricular septal defect visualized. There is no left ventricular aneurysm. RIGHT VENTRICLE The right ventricle is normal size. The right ventricular systolic function is normal. ATRIA The left atrium size is normal. The right atrium size is normal. The interatrial septum is intact with no evidence for an atrial septal defect. AORTIC VALVE The aortic valve is normal in structure. No aortic regurgitation is present. There is no aortic valvular stenosis. There is no aortic valvular vegetation. MITRAL VALVE There is no evidence of mitral valve prolapse. There is no mitral valve stenosis. Mitral regurgitation is mild. TRICUSPID VALVE The tricuspid valve is normal in structure. There is mild tricuspid regurgitation. There is no tricuspid valve prolapse or vegetation. There is no tricuspid valve stenosis. PULMONIC VALVE The pulmonary valve is normal in structure. GREAT VESSELS The aortic root is normal in size. <Conclusion> The left ventricular function is normal. The left ventricular ejection fraction is within the normal range. The right ventricular systolic function is normal. The aortic valve is normal in structure. There is no aortic valvular vegetation. There is mild tricuspid regurgitation. The aortic root is normal in size. No evidence of Endocarditis
== END 2018-01-23 11:10 | disposition home or self-care (01) | DRG 854 ==
LOC: C.ER 15:47 → C.9E 18:33 → C.6T 20:13
PROVIDERS: ADMIT Family Medicine; ATTEND Family Medicine
PROC: 02PY03Z Removal of Infusion Device from Great Vessel, Open Approach (ICD-10-PCS; principal; 2018-01-18 08:00)
DX: A41.50 Gram-negative sepsis, unspecified (principal); T80.219A Unspecified infection due to central venous catheter, initial encounter; I31.3 Pericardial effusion (noninflammatory); R56.00 Simple febrile convulsions; C50.911 Malignant neoplasm of unspecified site of right female breast; E78.5 Hyperlipidemia, unspecified; F32.9 Major depressive disorder, single episode, unspecified; H93.19 Tinnitus, unspecified ear; I10 Essential (primary) hypertension; I34.0 Nonrheumatic mitral (valve) insufficiency; K57.30 Diverticulosis of large intestine without perforation or abscess without bleeding

== ENCOUNTER 2018-03-17 08:47 | Day surgery (SDC) | payer MEDICARE ==
[2018-03-17] MEDS ORDERED: Lidocaine Hydrochloride 20 ML INJ ONE (10:07)
[2018-03-17] MEDS ORDERED: HEPARIN-NS 5,000 UNITS/500 ML 5,000 UNIT/500 ML BAG IV ONE (10:07)
[2018-03-17] MEDS ORDERED: Iohexol 240 (50 ml) ONE (10:10)
[2018-03-17] MEDS ORDERED: ceFAZolin IV 1 gm in Dextrose 1 GM/50 ML BAG IVPB ONE (10:28)
[2018-03-17] MEDS ORDERED: Midazolam 2 MG/2 ML VIAL ONE (11:04)
[2018-03-17] MEDS ORDERED: Propofol 10 mg/ml Inj (20 ML) ONE (11:07)
[2018-03-17] MEDS ORDERED: HYDROmorphone 0.5 mg/0.5 ml ISec IVP PRN (11:42)
[2018-03-17] MEDS ORDERED: Dexamethasone 4 mg/1 ml IVP PRN (11:42)
--- NOTE | 2018-03-17 11:42 | CP.SDSHP ---
Same Day Surgery H & P - History Proposed Procedure: Port placement Pre-Op Diagnosis: Breast cancer - Allergies Allergies: Allergies No Known Allergies Allergy (Verified 01/14/18 16:05) - Physical Exam Vital Signs: Vital Signs 03/17/18 09:52 Temperature 97.6 F Pulse Rate 76 Respiratory 18 Rate Blood Pressure 145/76 O2 Sat by Pulse 97 Oximetry Mental Status: Alert & Oriented x3 - Impression Impression: Pt with breast cancer and referral for port placement. Pt. Evaluated Today:Candidate for Anesthesia & Procedure: No - Date & Time Date: 03/17/18 Time: 10:30 Short Stay Discharge - Short Stay Discharge Admitting Diagnosis/Reason for Visit: PORTACATH INSERTION Disposition: HOME/ ROUTINE
--- NOTE | 2018-03-17 11:46 | PCM.SURG1 ---
Surgeon's Initial Post Op Note - Surgeon's Notes Surgeon: Gordy Herrera MD Clinical Appeals Specialist: NONE Type of Anesthesia: IV Sedation Pre-Operative Diagnosis: Breast cancer Operative Findings: Patent right IJV Post-Operative Diagnosis: Breast cancer Operation Performed: Port placement Specimen/Specimens Removed: None Estimated Blood Loss: EBL {In ML}: 2 Blood Products Given: N/A Drains Used: No Drains Post-Op Condition: Good Date of Surgery/Procedure: 03/17/18 Time of Surgery/Procedure: 11:40
--- NOTE | 2018-03-17 12:01 | RAD ---
PROCEDURE: Date of procedure: 03/17/2018 Procedure: 1. Placement of a left IJ port catheter with ultrasound and fluoroscopic guidance, CPT 43976 2. Catheter tip confirmation with spot radiograph in the superior vena cava. Medications: The patient was sedated anesthesiologist along with monitoring, Ancef 1 gm, 8cc lidocaine 1%. Fluoroscopic time: 23.9 Seconds Radiation: 13.4 MGy Blood loss: 2 cc HISTORY: Breast cancer requiring port for chemotherapy TECHNIQUE: Following informed consent the procedure time-out, the patient was placed supine on the interventional table and the patient's left neck and chest were prepped and draped in the usual sterile fashion. Ultrasound showed a compressible left internal jugular vein. After the patient was sedated by the anesthesiologist, the skin was anesthetized with 8cc 1% lidocaine with epinephrine. Under direct ultrasound guidance, the left internal jugular vein was accessed with micropuncture technique. A guidewire was then advanced under fluoroscopic guidance into the superior vena cava. An image documenting ultrasound guidance for vascular access was permanently saved. The subcutaneous tissue of patient left chest was infiltrated with 1 percent lidocaine with epinephrine. A dermatotomy was made with a 15. Scalpel. The port pocket was then created with blunt dissection using a Bailey clamp. The port pocket was flushed. A port catheter was then tunneled under the skin and out the venotomy site. The port catheter was flushed, advanced through a peel-away sheath, adjusted for length, and attached to the port. The port was placed in the port pocket and was secured with 3-0 SurgiPro sutures. The port was flushed and locked with heparin. The port pocket was then closed with absorbable 4-0 Polysorb sutures. The port pocket and the venotomy site were reprepped with ChloraPrep. Steri-Strips were then applied to the port incision also venotomy site. A sterile dressing was then applied. Final spot radiograph showed the left IJ port catheter with tip of the port catheter in the superior vena cava. A port is functional and ready for use. IMPRESSION: Placement of left IJ port catheter. Tip of the port is confirmed with fluoroscopic image and is in superior vena cava. The port is functional and can be used.
[2018-03-17 12:23] VITALS: RESP 16
[2018-03-17 13:11] VITALS: TEMP 97.3
[2018-03-17 14:59] VITALS: BP 114/55; PULSE 66; O2SAT 99
== END 2018-03-17 14:30 | disposition home or self-care (01) ==
LOC: C.SPRAD 08:47 → C.SDS 08:47
PROVIDERS: ATTEND Radiology Vascular & Interventional Radiology
DX: C50.911 Malignant neoplasm of unspecified site of right female breast (principal)
CPT/HCPCS: 36571; 76937; 77001; C1788; J0690; J1644; J2001; J2250; J2704; J3010; J7040